=== PATIENT | female | born 1935 | race Hispanic/Latino ===

== ENCOUNTER 2016-12-21 07:55 | Day surgery (SDC) | payer MEDICARE ==
[2016-05-29 20:36] VITALS: BMI 36.6
[2016-12-21] MEDS ORDERED: Propofol 10 mg/ml Inj (20 ML) ONE (09:26)
[2016-12-21] MEDS ORDERED: Etomidate 20 mg/10ml Inj IV ONE (09:27)
[2016-12-21] MEDS ORDERED: Sodium Chloride 0.9% 1,000 ML IV SCH (10:00)
[2016-12-21 11:18] VITALS: RESP 18
[2016-12-21 11:55] VITALS: BP 138/75; PULSE 74; TEMP 98; O2SAT 99
== END 2016-12-21 12:41 | disposition home or self-care (01) ==
LOC: ENDO 07:55
PROVIDERS: ATTEND Internal Medicine Gastroenterology
DX: D12.2 Benign neoplasm of ascending colon (principal); D12.3 Benign neoplasm of transverse colon; K57.30 Diverticulosis of large intestine without perforation or abscess without bleeding; K60.2 Anal fissure, unspecified; K64.8 Other hemorrhoids; K64.4 Residual hemorrhoidal skin tags; Z80.0 Family history of malignant neoplasm of digestive organs
CPT/HCPCS: 45380; 45385; 88305; J2001; J2704; J7040 ×2

== ENCOUNTER 2017-01-26 17:01 | Emergency (ER) | payer MEDICARE ==
[2017-01-26 17:03] VITALS: BMI 36.6
[2017-01-26 17:21] VITALS: RESP 19
[2017-01-26] MEDS ORDERED: Pantoprazole 40mg/100ml IVPB 40 MG/100 ML BAG IVPB SCH (17:45)
--- NOTE | 2017-01-26 17:49 | ED PDOC ---
Arrival/HPI - General Chief Complaint: Female Genitourinary Time Seen by Provider: 01/26/17 17:05 Historian: Patient, Family (daughter) - History of Present Illness Narrative History of Present Illness (Text): 01/26/17 17:46 Betsy Pepe is a 81 year old female, whose past medical history includes hypertension, CHF, Hemorrhoids, CVA, Diabetes, and lower pedal edema presents to the emergency room with daughter c/o rectal bleeding in the morning, and 2 days history NICHOLE and SOB. Patient stated she has seen Dr. Braxton, and DR. Lamb for hemorrhoids, but she was told no intervention needed at that time. Patient has an appointment to see Dr. Piedra General surgeon for February 04. Denies CP, dizziness, hemoptysis, melena, n/v/d, or abnormal gait. Time/Duration: Other (See HPI) Context: Home Past Medical History - Provider Review Nursing Documentation Reviewed: Yes - Past History Past History: Non-Contributing - Infectious Disease Hx of Infectious Diseases: None - Tetanus Immunization Tetanus Immunization: Unknown - Reproductive Menopause: Yes - Past Medical History Past Medical History: No Previous - Cardiac Hx Pacemaker: No - Pulmonary Hx Respiratory Disorders: Yes Hx Bronchitis: Yes (dx 05-29-16 given medications) - Neurological Hx Paralysis: No - HEENT Hx HEENT Disorder: Yes (uses glasses) Hx Cataracts: Yes (sx) Hx Glaucoma: Yes - Renal Hx Renal Disorder: No - Endocrine/Metabolic Hx Diabetes Mellitus Type 1: Yes Hx Hypothyroidism: Yes - Hematological/Oncological Hx Blood Transfusions: No - Integumentary Hx Dermatological Disorder: No - Musculoskeletal/Rheumatological Hx Musculoskeletal Disorders: Yes - Gastrointestinal Hx Gastrointestinal Disorders: Yes (IRRITABLE BOWEL SYNDROME,H/O CHOLECYSTECTOMY ) - Genitourinary/Gynecological Hx Genitourinary Disorders: Yes (frequent urination) - Psychiatric Hx Emotional Abuse: No Hx Physical Abuse: No Hx Substance Use: No - Past Surgical History Past Surgical History: Unable to Obtain - Surgical History Hx Appendectomy: Yes Hx Cholecystectomy: Yes - Anesthesia Hx Anesthesia: Yes Hx Anesthesia Reactions: No Hx Malignant Hyperthermia: No - Suicidal Assessment Feels Threatened In Home Enviroment: No Family/Social History - Physician Review Nursing Documentation Reviewed: Yes Family/Social History: Other (Noncontributory) Smoking Status: Never Smoked Hx Alcohol Use: No Hx Substance Use: No Hx Substance Use Treatment: No Allergies/Home Meds Allergies/Adverse Reactions: Allergies hydromorphone HCl [From Dilaudid] Allergy (Severe, Verified 01/26/17 17:35) HALLUCINATIONS tramadol Allergy (Severe, Verified 11/30/16 10:38) RASH Home Medications: Home Meds Medication Instructions Recorded Confirmed Clopidogrel [Plavix] 75 mg PO DAILY 10/11/15 01/26/17 Folic Acid 1 mg PO DAILY 10/11/15 01/26/17 Furosemide [Lasix] 40 mg PO TID 10/11/15 01/26/17 Meclizine [Meclizine*] 25 mg PO BID PRN 10/11/15 01/26/17 metFORMIN [glucOPHAGE] 1,000 mg PO BID 10/11/15 01/26/17 Levothyroxine [Synthroid] 25 mcg PO DAILY 05/29/16 01/26/17 Cyanocobalamin [Vitamin B12 1000 1,000 mcg PO DAILY 11/30/16 01/26/17 mcg Tab] Glimepiride [amaRYL] 4 mg PO BID 11/30/16 01/26/17 Hydrocortisone [Procto-Med Hc] 30 gm RC BID 11/30/16 01/26/17 [id number] Ethyl Esters [OMEGA 3] 1 tab PO BID 11/30/16 01/26/17 Review of Systems - Review of Systems Constitutional: Normal. absent: Fatigue, Weight Change, Fevers Eyes: Normal ENT: Normal. absent: Sore Throat, Rhinorrhea Respiratory: SOB. absent: Cough, Sputum, Wheezing Cardiovascular: Edema (chronic b/l lower leg edema), NICHOLE. absent: Chest Pain, Palpitations, Calf Pain, Orthopnea, Syncope Gastrointestinal: Other (rectal bleeding). absent: Abdominal Pain, Nausea, Vomiting Genitourinary Female: Normal. absent: Dysuria, Frequency, Hematuria Musculoskeletal: Normal Skin: Normal. absent: Rash Neurological: Normal. absent: Headache, Dizziness, Focal Weakness Endocrine: Normal Hemo/Lymphatic: Normal Psychiatric: Normal Physical Exam Vital Signs Temp Pulse Resp BP Pulse Ox 01/26/17 19:25 99.1 F 01/26/17 19:09 86 19 152/70 H 99 01/26/17 17:06 99.1 F 88 19 137/60 98 Temperature: Afebrile Blood Pressure: Normal Pulse: Regular Respiratory Rate: Normal Appearance: Positive for: Well-Appearing, Non-Toxic, Comfortable Pain Distress: None Mental Status: Positive for: Alert and Oriented X 3 - Systems Exam Head: Present: Atraumatic, Normocephalic Pupils: Present: PERRL Extroacular Muscles: Present: EOMI Conjunctiva: Present: Normal Mouth: Present: Moist Mucous Membranes Neck: Present: Normal Range of Motion Respiratory/Chest: Present: Clear to Auscultation, Good Air Exchange. No: Respiratory Distress, Accessory Muscle Use, Wheezes, Retracting, Rhonchi Cardiovascular: Present: Regular Rate and Rhythm, Normal S1, S2. No: Murmurs Abdomen: Present: Normal Bowel Sounds. No: Tenderness, Distention, Peritoneal Signs Rectal: Present: Hemorrhoids (with superficial abrasion), Normal Rectal Tone, Other (GUAIC negative with positive control). No: Occult Blood, Rectal Tenderness, Gross Blood, Melena, Nodule/Mass/Lesions Back: Present: Normal Inspection. No: CVA Tenderness Upper Extremity: Present: Normal Inspection. No: Cyanosis, Edema Lower Extremity: Present: Normal Inspection, NORMAL PULSES, Normal ROM, Polo's Sign, Neurovascularly Intact, Capillary Refill < 2 s. No: Edema, CALF TENDERNESS Neurological: Present: GCS=15, CN II-XII Intact, Speech Normal Skin: Present: Warm, Dry, Normal Color. No: Rashes Psychiatric: Present: Alert, Oriented x 3, Normal Insight, Normal Concentration Medical Decision Making ED Course and Treatment: 01/26/17 20:05 Patient came c/o one episode of rectal bleeding, bright red blood. She also noted increased sob x 2 days. Patient remained stable during the course of ED visit. VS are WNL. Labs were unremarkable, except for UTI. Patient was treated with rocephine and fluids. 01/26/17 20:07 Dr. Spence reviewed labs, CXR, and he examined patient. Dr. Spence agreed with my plan to d/c home, and Rocephin IV. I paged Dr. March. 01/26/17 20:[address] March regarding patient history of rectal bleeding, and SOB. I reviewed labs with Dr. March. He stated he scheduled to see patient in 1-2 days. He agrees with plan for d/c home. Patient feels well in her normal state of health. She agrees with the plan for d/c home. Re-evaluation Time: 20:45 Reassessment Condition: Re-examined, Improved - Lab Interpretations Lab Results: 01/26/17 18:00 01/26/17 18:00 Lab Results 01/26/17 18:59: Urine Color yellow, Urine Appearance Slight-cloudy, Urine pH 6.0 , Ur Specific [place] 1.025, Urine Protein 30 H, Urine Glucose (UA) Negative, Urine Ketones Negative, Urine Blood Trace-intact H, Urine Nitrate Positive H, Urine Bilirubin Negative, Urine Urobilinogen 0.2, Ur Leukocyte Esterase Moderate H, Urine RBC 2 - 5, Urine WBC 10 - 15, Ur Epithelial Cells Many, Amorphous Sediment Moderate, Urine Bacteria Small 01/26/17 18:00: Sodium 141, Potassium 3.5 L, Chloride 100, Carbon Dioxide 25, Anion Gap 20, BUN 22 H, Creatinine 0.9, Est GFR ( Amer) > 60, Est GFR ( Non-Af Amer) > 60, Random Glucose 198 H, Calcium 9.0, Total Bilirubin 0.5, AST 36, ALT 24, Alkaline Phosphatase 67, Lactate Dehydrogenase 495, Total Creatine Kinase 36, Troponin I 0.02, NT-Pro-B Natriuret Pep 211, Total Protein 7.4, Albumin 4.2, Globulin 3.2, Albumin/Globulin Ratio 1.3 01/26/17 18:00: PT 11.5, INR 1.05, APTT 19.2 L 01/26/17 18:00: WBC 6.4, RBC 3.38 L, Hgb 10.4 L, Hct 31.1 L, MCV 92.0, MCH 30.8 , MCHC 33.4, RDW 15.1 H, Plt Count 134, MPV 11.9 H, Gran % 70.7 H, Lymph % (Auto ) 16.9 L, [place] % (Auto) 8.0 H, Eos % (Auto) 3.8, Baso % (Auto) 0.6, Gran # 4.53 , Lymph # 1.1 L, [place] # 0.5, Eos # 0.2, Baso # 0.04 I have reviewed the lab results: Yes Interpretation: Abnormal lab values (acute cystitis, mild anemia) - RAD Interpretation Narrative RAD Interpretations (Text): 01/26/17 19:07 CXR: enlarged heart. No infiltrates Radiology Orders: 01/26/17 17:44 CHEST PORTABLE [RAD] Stat - EKG Interpretation Interpreted by ED Physician: Yes (sinus rhythm with 1stdegree AV block with PAC) Type: 12 lead EKG Comparison: No previous EKG avail. - Medication Orders Current Medication Orders: Pantoprazole Sodium (Protonix 40mg Ivpb) 40 mg in 100 mls @ 20 mls/hr IVPB .Q5H NIDIA Last Admin: 01/26/17 18:55 Dose: 20 mls/hr eMAR Start Stop Document 01/26/17 18:55 LA (Rec: 01/26/17 19:02 [place] [facility] [id number] Intravenous Solution Start Date 01/26/17 Start Time 19:01 Discontinued Medications Ceftriaxone Sodium (Rocephin 1 Gram Ivpb) 1 gm in 100 mls @ 200 mls/hr IVPB STAT STA PRN Reason: Protocol Stop: 01/26/17 20:32 Sodium Chloride (Sodium Chloride 0.9%) 500 mls @ 999 mls/hr IV .Q31M STA Stop: 01/26/17 20:37 Disposition/Present on Arrival - Present on Arrival Any Indicators Present on Arrival: No History of DVT/PE: No History of Uncontrolled Diabetes: No Urinary Catheter: No History of Decub. Ulcer: No History Surgical Site Infection Following: None - Disposition Have Diagnosis and Disposition been Completed?: Yes Diagnosis: Acute cystitis, Anemia, mild Disposition: HOME/ ROUTINE Disposition Time: 20:47 Patient Plan: Discharge Patient Problems: Current Active Problems Problem Status Onset Acute cystitis Acute Anemia, mild Acute Condition: IMPROVED Discharge Instructions (ExitCare): Urinary Tract Infection in Women (ED) Additional Instructions: Call private doctor for follow up visit in 1-2 days. Continue with Sitz bath, and Procto-Med, supp. as recommended by your doctor. Take medication as instructed. Return to emergency if symptoms worsen. Prescriptions: Cephalexin [Keflex] 500 mg PO BID #14 capsule Referrals: Dante March DO [Primary Care Provider] - Follow up with primary Forms: Ghost (German)
[2017-01-26 18:23] LABS: BASO # 0.04 K/mm3 (0.0-2.0); BASO % 0.6 % (0.0-3.0); EOS # 0.2 (0.0-0.7); EOS % 3.8 % (1.5-5.0); GRAN # 4.53 (1.4-6.5); GRAN % 70.7 % (50.0-68.0); HEMATOCRIT 31.1 % (36.0-48.0); LYMPH # 1.1 (1.2-3.4); LYMPH % 16.9 % (22.0-35.0); MEAN CORPUSCULAR HEMOGLOBIN 30.8 pg (25.0-35.0); MEAN CORPUSCULAR HGB CONC 33.4 g/dl (31.0-37.0); MEAN PLATELET VOLUME 11.9 fl (7.0-11.0); MONO # 0.5 (0.1-0.6); RED CELL DISTRIBUTION WIDTH 15.1 % (11.5-14.5); WHITE BLOOD COUNT 6.4 10^3/ul (4.5-11.0)
[2017-01-26 18:24] LABS: ALB/GLOB RATIO 1.3 (1.1-1.8); ALKALINE PHOSPHATASE 67 U/L (38-126); ALT/SGPT 24 U/L (7-56); AST/SGOT 36 U/L (14-36); BILIRUBIN,TOTAL 0.5 mg/dL (0.2-1.3); BLOOD UREA NITROGEN 22 mg/dL (7-21); CARBON DIOXIDE 25 mmol/L (21-33); CHLORIDE 100 mmol/L (98-107); GFR AFRICAN-AMERICAN > 60; GLUCOSE,RANDOM 198 mg/dL (70-110); POTASSIUM 3.5 mmol/L (3.6-5.0); SODIUM 141 mmol/L (132-148); TOTAL PROTEIN 7.4 g/dL (5.8-8.3)
[2017-01-26 18:31] LABS: INR 1.05 (0.93-1.08); PARTIAL THROMBOPLASTIN TIME 19.2 Seconds (25.1-36.5)
[2017-01-26 18:35] LABS: TROPONIN I 0.02 ng/mL
[2017-01-26 19:14] LABS: URINE APPEARANCE SLIGHT-CLOUDY (CLEAR); URINE BILIRUBIN NEGATIVE (NEGATIVE); URINE BLOOD TRACE-INTACT (NEGATIVE); URINE GLUCOSE (UA) NEGATIVE (NEGATIVE); URINE KETONE NEGATIVE (NEGATIVE); URINE LEUKOCYTE ESTERASE MODERATE Leu/uL (NEGATIVE); URINE PROTEIN 30 mg/dL (<30 mg/dL); URINE UROBILINOGEN 0.2 E.U./dL (<1 E.U./dL)
[2017-01-26 19:15] LABS: URINE AMORPHOUS SEDIMENT MODERATE; URINE BACTERIA SMALL (NEG); URINE EPITHELIAL CELLS MANY /hpf (0-5)
[2017-01-26] MEDS ORDERED: cefTRIAXone 1 gm 1 GM/100 ML BAG IVPB STA (20:03)
[2017-01-26] MEDS ORDERED: Sodium Chloride 0.9% 500 ML IV STA (20:07)
[2017-01-26 21:18] VITALS: BP 136/66; PULSE 81; TEMP 98.2; O2SAT 98
--- NOTE | 2017-01-27 09:47 | RAD ---
HISTORY: NICHOLE COMPARISON: 11/30/2016 FINDINGS: LUNGS: No active pulmonary disease. PLEURA: No significant pleural effusion identified, no pneumothorax apparent. CARDIOVASCULAR: Mild cardiomegaly OSSEOUS STRUCTURES: No significant abnormalities. VISUALIZED UPPER ABDOMEN: Normal. OTHER FINDINGS: None. IMPRESSION: No active disease.
--- NOTE | 2017-01-27 21:02 | CARD ---
APPROVED REPORT EKG Measurement Heart [id number] <Conclusion> Sinus rhythm with 1st degree AV block with premature atrial complexes Nonspecific T wave abnormality Prolonged QT Abnormal ECG
== END 2017-01-26 21:29 | disposition home or self-care (01) ==
LOC: ED 17:01
DX: N30.00 Acute cystitis without hematuria (principal); D64.9 Anemia, unspecified
CPT/HCPCS: 71010; 80053; 81001; 82550; 83615; 83880; 84484; 85025; 85610; 85730; 87086; 93005; 96365; 96366; 96367; 99285; C9113; J0696; J7040

== ENCOUNTER 2017-02-14 17:07 | Inpatient (IN) | payer MEDICARE, OTHER ==
[2017-02-14 17:07] VITALS: BMI 36.6
--- NOTE | 2017-02-14 17:41 | ED PDOC ---
Arrival/HPI - General Chief Complaint: Altered Mental Status Time Seen by Provider: 02/14/17 17:27 Historian: Patient - History of Present Illness Narrative History of Present Illness (Text): 02/14/17 17:41 A 81 year old female, with a past medical history of CHF, hypertension, diabetes , and CVA with no residual effects, brought into the emergency room by daughter for confusion since 11:00 this morning. Patient reports she has been forgetting things today, not feeling like herself. Daughter notes patient is warm to touch with chills. She notes a sharp right sided headache since yesterday. Patient reports chronic left lower leg weakness, which has worsened over the past 3-4 days. She also notes chronic nasal congestion, cough and loose bowel movements, but denies any nausea, vomiting, abdominal pain, chest pain, shortness of breath , vision changes or any other complaints. PMD: Dr. March Time/Duration: Other (confusion x this morning) Symptom Course: Unchanged Context: Home Past Medical History - Provider Review Nursing Documentation Reviewed: Yes - Past History Past History: Non-Contributing - Infectious Disease Hx of Infectious Diseases: None - Tetanus Immunization Tetanus Immunization: Unknown - Reproductive Menopause: Yes - Past Medical History Past Medical History: No Previous - Cardiac Hx Pacemaker: No - Pulmonary Hx Respiratory Disorders: Yes Hx Bronchitis: Yes (dx 2 given medications) - Neurological Hx Paralysis: No - HEENT Hx HEENT Disorder: Yes (uses glasses) Hx Cataracts: Yes (sx) Hx Glaucoma: Yes - Renal Hx Renal Disorder: No - Endocrine/Metabolic Hx Diabetes Mellitus Type 1: Yes Hx Hypothyroidism: Yes - Hematological/Oncological Hx Blood Transfusions: No - Integumentary Hx Dermatological Disorder: No - Musculoskeletal/Rheumatological Hx Musculoskeletal Disorders: Yes - Gastrointestinal Hx Gastrointestinal Disorders: Yes (IRRITABLE BOWEL SYNDROME,H/O CHOLECYSTECTOMY ) - Genitourinary/Gynecological Hx Genitourinary Disorders: Yes (frequent urination) - Psychiatric Hx Emotional Abuse: No Hx Physical Abuse: No Hx Substance Use: No - Past Surgical History Past Surgical History: Unable to Obtain - Surgical History Hx Appendectomy: Yes Hx Cholecystectomy: Yes - Anesthesia Hx Anesthesia: Yes Hx Anesthesia Reactions: No Hx Malignant Hyperthermia: No - Suicidal Assessment Feels Threatened In Home Enviroment: No Family/Social History - Physician Review Nursing Documentation Reviewed: Yes Family/Social History: No Known Family HX Smoking Status: Never Smoked Hx Alcohol Use: No Hx Substance Use: No Hx Substance Use Treatment: No Allergies/Home Meds Allergies/Adverse Reactions: Allergies hydromorphone HCl [From Dilaudid] Allergy (Severe, Verified 02/14/17 17:16) HALLUCINATIONS tramadol Allergy (Severe, Verified 02/14/17 17:16) RASH Home Medications: Home Meds Medication Instructions Recorded Confirmed Clopidogrel [Plavix] 75 mg PO DAILY 10/11/15 02/14/17 Folic Acid 1 mg PO DAILY 10/11/15 02/14/17 Furosemide [Lasix] 40 mg PO TID 10/11/15 02/14/17 Meclizine [Meclizine*] 25 mg PO BID PRN 10/11/15 02/14/17 metFORMIN [glucOPHAGE] 1,000 mg PO BID 10/11/15 02/14/17 Levothyroxine [Synthroid] 25 mcg PO DAILY 05/29/16 02/14/17 Cyanocobalamin [Vitamin B12 1000 1,000 mcg PO DAILY 11/30/16 02/14/17 mcg Tab] Glimepiride [amaRYL] 4 mg PO BID 11/30/16 02/14/17 Hydrocortisone [Procto-Med Hc] 30 gm RC BID 11/30/16 02/14/17 [id number] Ethyl Esters [OMEGA 3] 1 tab PO BID 11/30/16 02/14/17 Amoxicillin [Amoxil 500 mg Cap] 500 mg PO TID 02/14/17 02/14/17 Review of Systems - Physician Review All systems were reviewed & negative as marked: Yes - Review of Systems Constitutional: Night Sweats Eyes: absent: Vision Changes ENT: Sinus Congestion Respiratory: Cough. absent: SOB Cardiovascular: absent: Chest Pain Gastrointestinal: Stool Changes (loose stool). absent: Abdominal Pain, Nausea, Vomiting Neurological: Headache, Other (LLE weakness) Psychiatric: Other (confusion) Physical Exam Vital Signs Reviewed: Yes Vital Signs Temp Pulse Resp BP Pulse Ox 02/14/17 19:45 89 16 143/66 97 02/14/17 19:25 90 20 129/63 96 02/14/17 18:13 101.8 F H 96 H 18 140/61 97 02/14/17 18:10 101.8 F H 02/14/17 17:19 100.3 F H 86 19 142/49 L 97 02/14/17 17:18 100.3 F H 86 17 142/49 L 97 Temperature: Febrile Blood Pressure: Hypotensive Pulse: Regular Respiratory Rate: Normal Appearance: Positive for: Well-Appearing, Non-Toxic, Comfortable Pain Distress: None Mental Status: Positive for: Alert and Oriented X 3 - Systems Exam Head: Present: Atraumatic, Normocephalic Pupils: Present: PERRL Extroacular Muscles: Present: EOMI Conjunctiva: Present: Normal Mouth: Present: Moist Mucous Membranes Neck: Present: Normal Range of Motion Respiratory/Chest: Present: Clear to Auscultation, Good Air Exchange. No: Respiratory Distress, Accessory Muscle Use Cardiovascular: Present: Regular Rate and Rhythm, Normal S1, S2. No: Murmurs Abdomen: Present: Normal Bowel Sounds. No: Tenderness, Distention, Peritoneal Signs Back: Present: Normal Inspection Upper Extremity: Present: Normal Inspection. No: Cyanosis, Edema Lower Extremity: Present: Edema (bilateral trace edema), NORMAL PULSES, Other ( Left lower leg weakness, 4/5 in strength). No: CALF TENDERNESS Neurological: Present: GCS=15, CN II-XII Intact, Speech Normal, Other Skin: Present: Warm (warm to touch), Dry, Normal Color. No: Rashes Psychiatric: Present: Alert, Oriented x 3, Normal Insight, Normal Concentration , Other (confused) Medical Decision Making ED Course and Treatment: 02/14/17 17:41 Impression: A 81 year old female brought in for confusion Differential Diagnosis included but are not limited to: Sepsis vs. CVA Plan: -- CT Head -- Chest X-ray -- EKG -- Labs -- Blood and Urine culture -- Urinalysis -- Tylenol, Magnesium sulfate, Potassium chloride, IV fluids and Zosyn -- Reassess and disposition Progress Notes: EKG shows NSR at 89 BPM with 1st degree AV block, sinus arrhythmia. Interpreted by me. 02/14/17 18:00 Chest xray read and interpreted by me, shows no active disease. 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 MRI may be helpful if acute infarct is suspected 02/14/17 19:12 Case was discussed with Dr. March who agreed to place the patient on telemetry for sepsis. 02/14/17 20:12 CT results ischemic changes as noted above. Patient passed her swallow study as per JUMA Salguero. Aspirin PO ordered. Dr. March informed about new finding on CT. He is requested Dr. Nguyen. 02/14/17 22:[address] Nguyen who recommends Vancomycin IV also to cover possible endocarditis. He will evaluate the patient in the morning. - Lab Interpretations Lab Results: 02/14/17 18:00 02/14/17 18:00 Lab Results 02/14/17 18:20: Influenza Typ A,B (EIA) Negative for flu a/b 02/14/17 18:00: Blood Type O POSITIVE, Antibody Screen Negative, BBK History Checked No verified bt 02/14/17 18:00: Hemoglobin A1c 7.8 H 02/14/17 18:00: Sodium 137, Chloride 96 L, Potassium 3.0 L, Carbon Dioxide 30, Anion Gap 14, BUN 16, Creatinine 0.8, Est GFR ( Amer) > 60, Est GFR (Non- Af Amer) > 60, Random Glucose 166 H, Calcium 9.0, Phosphorus 2.3 L, Magnesium 1.0 L*, Total Bilirubin 0.6, AST 30, ALT 21, Alkaline Phosphatase 64, Troponin I 0.02, NT-Pro-B Natriuret Pep 774 H, Total Protein 7.1, Albumin 4.0, Globulin 3.1, Albumin/Globulin Ratio 1.3, Triglycerides 429 H, Cholesterol 155, LDL Cholesterol Direct 48, HDL Cholesterol 33 02/14/17 18:00: pO2 36, VBG pH 7.46 H, VBG pCO2 44.0, VBG HCO3 31.3 H, VBG Total CO2 32.7 H, VBG O2 Sat (Calc) 74.6 H, VBG Base Excess 6.6 H, VBG Potassium 3.0 L, Sodium 139.0, Chloride 99.0, Glucose 166 H, Lactate 3.7 H, FiO2 21.0, Venous Blood Potassium 3.0 L 02/14/17 18:00: PT 12.7 H, INR 1.16 H, APTT 30.9 02/14/17 18:00: Procalcitonin 0.05 L 02/14/17 18:00: WBC 9.3 D, RBC 3.55, Hgb 10.9 L, Hct 32.4 L, MCV 91.3, MCH 30.7 , MCHC 33.6, RDW 14.9 H, Plt Count 210, MPV 10.1, Gran % 76.4 H, Lymph % (Auto) 16.3 L, [place] % (Auto) 5.8, Eos % (Auto) 1.2 L, Baso % (Auto) 0.3, Gran # 7.08 H , Lymph # 1.5, [place] # 0.5, Eos # 0.1, Baso # 0.03, ESR 79 H I have reviewed the lab results: Yes - RAD Interpretation Radiology Orders: 02/14/17 17:40 CHEST PORTABLE [RAD] Stat 02/14/17 17:42 HEAD W/O CONTRAST [CT] Stat - Medication Orders Current Medication Orders: Clopidogrel Bisulfate (Plavix) 75 mg PO DAILY NIDIA Furosemide (Lasix) 40 mg IVP DAILY NIDIA Gabapentin (Neurontin) 300 mg PO TID NIDIA PRN Reason: Protocol Glimepiride (Amaryl) 4 mg PO BID NIDIA Sodium Chloride (Sodium Chloride 0.45%) 1,000 mls @ 40 mls/hr IV .Q24H NIDIA Vancomycin HCl (Vancomycin 1gm) 1 gm in 250 mls @ 167 mls/hr IVPB STAT STA PRN Reason: Protocol Stop: 02/14/17 23:36 Insulin Human Regular (Humulin R Med) 0 units SC ACHS NIDIA PRN Reason: Protocol Levothyroxine Sodium (Synthroid) 25 mcg PO DAILY NIDIA Metformin HCl (Glucophage) 1,000 mg PO BID NIDIA Discontinued Medications Acetaminophen (Tylenol 325mg Tab) 650 mg PO STAT STA Stop: 02/14/17 17:41 Last Admin: 02/14/17 18:10 Dose: 650 mg MAR Pain/Vitals Document 02/14/17 18:10 OCS (Rec: 02/14/17 18:18 O[place] [facility] [place] Pain Reassessment Is This A Pain ReAssessment? Yes Sleep Is patient sleeping during reassessment? No Presence of Pain Presence of Pain Yes Pain Scale Used Pain Scale Used Numeric Location Pain Location Body Site Generalized Vitals Temperature (97.6 F-99.6 F) 101.8 F Temperature Source Rectal Aspirin (Aspirin Chewable) 324 mg PO STAT STA Stop: 02/14/17 20:12 Last Admin: 02/14/17 20:27 Dose: Not Given Non-Admin Reason: Patient Refused Piperacillin Sod/Tazobactam Sod (Zosyn 4.5 Gm In Ns 100ml) 4.5 gm in 100 mls @ 200 mls/hr IVPB STAT STA PRN Reason: Protocol Stop: 02/14/17 19:01 Last Admin: 02/14/17 18:53 Dose: 200 mls/hr eMAR Start Stop Document 02/14/17 18:53 OCS (Rec: 02/14/17 18:53 [facility] [email or web address] Intravenous Solution Start Date 02/14/17 Start Time 18:53 Magnesium Sulfate 2 gm/ Sodium (Chloride) 104 mls @ 102 mls/hr IVPB ONCE ONE Stop: 02/14/17 19:38 Last Admin: 02/14/17 19:47 Dose: 102 mls/hr eMAR Start Stop Document 02/14/17 19:47 JOL (Rec: 02/14/17 19:47 [facility]OL [facility] [email or web address] Intravenous Solution Start Date 02/14/17 Start Time 19:47 End Date 02/14/17 End time 20:49 Total Infusion Time 62 Potassium Chloride 10 meq/ (Sodium Chloride) 505 mls @ 999 mls/hr IV .Q31M STA Stop: 02/14/17 19:09 Last Admin: 02/14/17 20:50 Dose: 999 mls/hr eMAR Start Stop Document 02/14/17 20:50 JOL (Rec: 02/14/17 22:09 [facility] [email or web address] Intravenous Solution Start Date 02/14/17 Start Time 20:55 Potassium Chloride (K-Dur 20 Meq Er Tab) 40 meq PO STAT STA Stop: 02/14/17 18:38 Last Admin: 02/14/17 18:59 Dose: 40 meq NIHSS Scale ([place]) Time Performed: 17:41 - How Severe is the [place] Baseline Level of Consciousness: 0=Alert LOC to Questions: 0=Both comments correct LOC to commands: 0=Obeys both correctly Best Gaze: 0=Normal Visual: 1=Partial hemianopia Facial: 0=Normal Motor Arm - Left: 0=No drift Motor Arm - Right: 0=No drift Motor Leg - Left: 0=No drift Motor Leg - Right: 0=No drift Limb Ataxia: 0=Absent Sensory: 0=Normal Best Language: 0=No aphasia Dysarthia: 0=Normal articulation Extinction & Inattention (Neglect): 0=Normal, no object Score: 1 Risk Level: Minor Stroke Risk rTPA Inclusion/Exclusion - Refusal of Treatment Patient Refused Treatment: No - Inclusion Criteria for Altepase Patient is 18 years or Older: Yes The Clinical Diagnosis of Ischemic Stroke That is Causing a Potentially Disabling Neurological Deficit: No Time of Onset is Well Established to be Less Than 270 Minute Before Treatment Would Begin: No Risk/Benefit Discussed With Patient/Family Member Present: No - Scribe Statement The provider has reviewed the documentation as recorded by the Scribe Sophie Dickinson training under Kathie Wren Provider Scribe Attestation: All medical record entries made by the Scribe were at my direction and personally dictated by me. I have reviewed the chart and agree that the record accurately reflects my personal performance of the history, physical exam, medical decision making, and the department course for this patient. I have also personally directed, reviewed, and agree with the discharge instructions and disposition. Disposition/Present on Arrival - Present on Arrival Any Indicators Present on Arrival: No History of DVT/PE: No History of Uncontrolled Diabetes: No Urinary Catheter: No History of Decub. Ulcer: No History Surgical Site Infection Following: None - Disposition Have Diagnosis and Disposition been Completed?: Yes Diagnosis: Altered mental status, Sepsis, CVA (cerebral vascular accident) Disposition: HOSPITALIZED Disposition Time: 22:21 Patient Plan: Admission Condition: GUARDED
[2017-02-14 18:15] LABS: VENOUS BLOOD GAS BASE EXCESS 6.6 mmol/L (0.0-2.0); VENOUS BLOOD PH 7.46 (7.32-7.43)
[2017-02-14 18:23] LABS: BASO # 0.03 K/mm3 (0.0-2.0); BASO % 0.3 % (0.0-3.0); EOS # 0.1 (0.0-0.7); EOS % 1.2 % (1.5-5.0); GRAN # 7.08 (1.4-6.5); GRAN % 76.4 % (50.0-68.0); HEMATOCRIT 32.4 % (36.0-48.0); LYMPH # 1.5 (1.2-3.4); LYMPH % 16.3 % (22.0-35.0); MEAN CELL VOLUME 91.3 fl (80.0-105.0); MEAN CORPUSCULAR HEMOGLOBIN 30.7 pg (25.0-35.0); MEAN CORPUSCULAR HGB CONC 33.6 g/dl (31.0-37.0); MEAN PLATELET VOLUME 10.1 fl (7.0-11.0); MONO # 0.5 (0.1-0.6); MONO % 5.8 % (1.0-6.0); RED CELL DISTRIBUTION WIDTH 14.9 % (11.5-14.5); WHITE BLOOD COUNT 9.3 10^3/ul (4.5-11.0)
[2017-02-14 18:26] LABS: ALB/GLOB RATIO 1.3 (1.1-1.8); ALKALINE PHOSPHATASE 64 U/L (38-126); ALT/SGPT 21 U/L (7-56); AST/SGOT 30 U/L (14-36); BILIRUBIN,TOTAL 0.6 mg/dL (0.2-1.3); BLOOD UREA NITROGEN 16 mg/dL (7-21); CARBON DIOXIDE 30 mmol/L (21-33); CHLORIDE 96 mmol/L (98-107); CHOLESTEROL 155 mg/dL (130-200); GFR AFRICAN-AMERICAN > 60; GLUCOSE,RANDOM 166 mg/dL (70-110); PHOSPHOROUS 2.3 mg/dL (2.5-4.5); SODIUM 137 mmol/L (132-148); TOTAL PROTEIN 7.1 g/dL (5.8-8.3)
[2017-02-14] MEDS ORDERED: Piperacill/Tazo 4.5gm in NS 4.5 GM/100 ML BAG IVPB STA (18:32)
[2017-02-14 18:34] LABS: INR 1.16 (0.93-1.08); PARTIAL THROMBOPLASTIN TIME 30.9 Seconds (25.1-36.5)
[2017-02-14 18:37] LABS: TROPONIN I 0.02 ng/mL
[2017-02-14] MEDS ORDERED: Magnesium Sulfate 2 GM in Sodium Chloride 0.9% 100 ML IVPB ONE (18:37)
[2017-02-14] MEDS ORDERED: Potassium Chloride 20 mEq ER Tab PO STA (18:37)
--- NOTE | 2017-02-14 19:53 | CT ---
EXAM: CT Head Without Intravenous Contrast EXAM DATE/TIME: 02/14/2017 5:42 PM CLINICAL HISTORY: 81 years old, female; Signs and symptoms; Other: Confusion TECHNIQUE: Axial computed tomography images of the head/brain without intravenous contrast. All CT scans at this facility use one or more dose reduction techniques, viz.: automated exposure control; ma/kV adjustment per patient size (including targeted exams where dose is matched to indication; i.e. head); or iterative reconstruction technique. COMPARISON: CT - HEAD W/O CONTRAST 2016-05-29 22:51 FINDINGS: Brain: There is dilatation of sulci gyri and ventricles. There is no midline shift. There is decreased attenuation in periventricular white matter. There is geographic region of decreased attenuation in the posterior right temporal and right occipital lobes. There is an old left frontal infarct. There is an old left occipital infarct with encephalomalacia. There are old basal ganglia lacunar infarcts. There are no focal masses. There are no focal hemorrhages. Urias-white differentiation is visualized. Ventricles: See above Bones/joints: Bones: Cranial vault is intact. Soft tissues: unremarkable Sinuses: There is no acute sinusitis. There are retention cysts/polyp in the right maxillary sinus, left frontal sinus and ethmoid air cell.. There is a small retention cyst in an ethmoid air cell. There is mild mucoperiosteal Mastoid air cells: Ears and mastoids: Middle ears and mastoids are unremarkable. Orbits: Orbital contents are unremarkable. IMPRESSION: Age indeterminate ischemic change posterior right temporal and right occipital lobes; old left frontal, left occipital and basal ganglia infarcts , no bleed MRI may be helpful if acute infarct is suspected
[2017-02-14 20:18] LABS: URINE BILIRUBIN NEGATIVE (NEGATIVE); URINE BLOOD NEGATIVE (NEGATIVE); URINE GLUCOSE (UA) NEGATIVE (NEGATIVE); URINE KETONE NEGATIVE (NEGATIVE); URINE LEUKOCYTE ESTERASE SMALL Leu/uL (NEGATIVE); URINE PROTEIN 30 mg/dL (<30 mg/dL); URINE UROBILINOGEN 0.2 E.U./dL (<1 E.U./dL)
[2017-02-14 20:20] LABS: URINE APPEARANCE SLIGHT-CLOUDY (CLEAR); URINE COLOR YELLOW (YELLOW)
[2017-02-14 20:35] LABS: URINE BACTERIA MOD (NEG)
[2017-02-14] MEDS ORDERED: Vancomycin 1gm in NS 250ml 1 GM/250 ML BAG IVPB STA (22:07)
[2017-02-14 22:36] LABS: VENOUS BLOOD GAS BASE EXCESS 5.8 mmol/L (0.0-2.0); VENOUS BLOOD PH 7.48 (7.32-7.43)
--- NOTE | 2017-02-14 22:57 | PCM.SEPTIC ---
Sepsis Progress Note - Reassessment Type Date of Evaluation: 02/14/17 Time of Evaluation: 22:57 Reassessment Type: Non-invasive reassessment - Non Invasive Reassessment Were the most recent vital sign reviewed: Yes Vital Sign (Latest): Temp Pulse Resp BP Pulse Ox 101.8 F H 89 16 143/66 97 02/14/17 18:13 02/14/17 19:45 02/14/17 19:45 02/14/17 19:45 02/14/17 19:45 Cardiovascular: Yes: Regular Rate, Rhythm Respiratory: Yes: Normal Breath Sounds Capillary Refill: Normal (Less than 2 sec) Skin: Normal Color
[2017-02-14] MEDS: Insulin Reg-MEDIUM-Coverage SC SCH (23:30)
[2017-02-15] MEDS: Meropenem 1 GM in Dextrose 5% In Water 100 ML IVPB SCH ×4 (03:24→21:45)
[2017-02-15] MEDS: Sodium Chloride 0.45% 1,000 ML IV SCH ×2 (03:25→23:02)
--- NOTE | 2017-02-15 05:51 | HP ---
HISTORY OF PRESENT ILLNESS: I know Betsy very well from house calls, over the past few years, she comes in accompanied by her daughter. An 81-year-old female with a little bit of confusion, since 11:00 a.m. forgetting things, not feeling herself. She is also very warm to touch and chills, also headache, leg weakness worsened over the past 3 to 4 days, chronic nasal congestion, cough, loose bowel movements. No nausea or vomiting. No chest pain or shortness of breath. 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 She wears glasses. She had cataract surgery, glaucoma, hypothyroidism, type 1 diabetes, IVS, and history of cholecystectomy, increasing urination, appendectomy and cholecystectomy. FAMILY HISTORY: Hypertension and diabetes in the family. SOCIAL HISTORY: She never smoked. No alcohol. No drugs. ALLERGIES: SHE IS ALLERGIC TO DILAUDID AND TRAMADOL. MEDICATIONS: She takes Plavix, folic acid, Lasix, Meclizine, Glucophage, Synthroid, vitamin B12, Amaryl, Proctosol cream, omega-3 fatty acid. She has been on amoxicillin recently. REVIEW OF SYSTEMS: She is very hard to touch, she is very warm, sweaty. She has chills. No changes in vision or hearing, sinus congestion, a little sore throat. There is a cough. No shortness of breath. No chest pain. Loose stools recently. No abdominal pain. No nausea or vomiting or constipation. There is a headache. Some weakness in the legs. She is confused a little bit, but she knew me right off the bat. PHYSICAL EXAMINATION: GENERAL: She is resting in bed with family present. She is a little toxic to me not herself, well-appearing, but a little bit confused She is alert and oriented x2. VITAL SIGNS: Temperature 101.8, 96 pulse, 20 respiratory rate, 140/61 blood pressure and 97% O2 saturation on room air. HEENT: Head is atraumatic and normocephalic. Tongue is midline. Extraocular muscles intact. Pupils equal and reactive to light and accommodation. Very hard to touch. NECK: Supple. HEART: Regular rate. Normal S1 and S2. LUNGS: Decreased breath sounds. Clear to auscultation, fair exchange of oxygen. ABDOMEN: Soft, obese and nontender. Positive bowel sounds. No guarding. No rebound. No CVA tenderness. EXTREMITIES: +1/4 pitting edema bilateral extremities. They found some left lower lobe weakness. NEUROLOGIC: GCS is 15. Cranial nerves II through XII grossly intact. Speech is normal. She is alert and oriented x2, but confused. SKIN: Warm, hot, not sweaty. LABORATORY DATA: She had multiple tests done, negative influenza. Sodium 137, potassium 3, replaced potassium, BUN 16, creatinine 0.8. GFR is greater than 60. Sugar is 166, she will be on a medicine plus insulin coverage, phosphorus 2.3, magnesium 1, magnesium replaced, total bili is 0.6, AST is 30, ALT is 21,alk phos 64, troponin I 0.02. BNP is 774, total protein 7.1, albumin is 4, globulin is 3.1, cholesterol is 155, HDL of 33. She has a lactate of 3.7, INR is 1.16 with 11.3 white count, 10.9 hemoglobin, 32.4 hematocrit with [address] She had a CT scan of the head, which showed age-indeterminate ischemic change, posterior right temporal and right occipital lobes, old left frontal lobe. We recommended an MRI. Her urine was moderate bacteria. She could have UTI, sepsis with a temperature of 101.8 and with the change in mentation and confusion may be she is developing a stroke versus ischemia. I am going to call Neurology, Infectious Disease, IV antibiotics, IV fluids. She is on Zosyn. We will check her labs tomorrow, oxygen. Dante March DO [facility]
[2017-02-15 06:16] LABS: HEMATOCRIT 30.9 % (36.0-48.0); MEAN CELL VOLUME 91.4 fl (80.0-105.0); MEAN CORPUSCULAR HEMOGLOBIN 30.2 pg (25.0-35.0); MEAN PLATELET VOLUME 9.7 fl (7.0-11.0)
[2017-02-15 06:39] LABS: ALB/GLOB RATIO 1.2 (1.1-1.8); ALKALINE PHOSPHATASE 56 U/L (38-126); ALT/SGPT 32 U/L (7-56); AST/SGOT 21 U/L (14-36); BILIRUBIN,TOTAL 0.6 mg/dL (0.2-1.3); BLOOD UREA NITROGEN 13 mg/dL (7-21); CALCIUM 8.6 mg/dL (8.4-10.5); CARBON DIOXIDE 28 mmol/L (21-33); CHLORIDE 99 mmol/L (95-110); GFR AFRICAN-AMERICAN > 60; GLUCOSE,RANDOM 220 mg/dL (70-110); MAGNESIUM 1.5 mg/dL (1.7-2.2); POTASSIUM 3.2 mmol/L (3.6-5.0); SODIUM 137 mmol/L (132-148); TOTAL PROTEIN 6.5 g/dL (5.8-8.3)
[2017-02-15] MEDS: Insulin Reg-MEDIUM-Coverage SC SCH ×4 (08:03→23:03)
[2017-02-15 08:04] LABS: VENOUS BLOOD GAS BASE EXCESS 4.8 mmol/L (0.0-2.0); VENOUS BLOOD PH 7.43 (7.32-7.43)
[2017-02-15] MEDS ORDERED: Magnesium Sulfate 1 gm in D5W 1 GM/100 ML BAG IVPB ONE (08:32)
--- NOTE | 2017-02-15 09:17 | RAD ---
HISTORY: Sepsis Patient COMPARISON: 01/26/2017 FINDINGS: LUNGS: No active pulmonary disease. PLEURA: No significant pleural effusion identified, no pneumothorax apparent. CARDIOVASCULAR: Mild cardiomegaly OSSEOUS STRUCTURES: No significant abnormalities. VISUALIZED UPPER ABDOMEN: Normal. OTHER FINDINGS: None. IMPRESSION: No active disease.
[2017-02-15 09:44] LABS: VENOUS BLOOD GAS BASE EXCESS 2.8 mmol/L (0.0-2.0); VENOUS BLOOD PH 7.44 (7.32-7.43)
--- NOTE | 2017-02-15 10:05 | CP.PCM.HP ---
History of Present Illness - History of Present Illness History of Present Illness: Neurology consult note for Dr. Nguyen's service - Krystal Rao PGY2 HPI: Patient is a 81 year-old female with past medical history of CHF, hypertension, DM type 2, hypothyroidism, glaucoma, spinal stenosis at L3-L4, obesity, neuropathy, GERD, osteoarthritis and acute infarct in the left anterior frontal lobe with no residual effects who presented to [facility] c/o confusion associated with fevers and chills. She reported that she first started having symptoms earlier that day and became worried she may be having a stroke. Her daughter at the time noted that she seemed confused, forgetful and had chills. She also reported loose bowel movements which she admits had been a chronic issue. She denied chest pain, palpitations, SOB, abdominal pain, nausea, vomiting, cough, focal weakness, numbness, tingling. Neurology consulted for evaluation of confusion. 12point ROS as per HPI above otherwise negative PMH: as stated above PSH: cholecystectomy Allergies: hydromorphone, tramadol Family Hx: Non-contributory Social Hx: Denies tobacco, alcohol and illicit drug use PMD: Dr. March Present on Admission - Present on Admission Any Indicators Present on Admission: No Past Patient History - Infectious Disease Hx of Infectious Diseases: None - Tetanus Immunizations Tetanus Immunization: Unknown - Past Social History Smoking Status: Never Smoked - CARDIAC Hx Cardiac Disorders: Yes Hx Congestive Heart Failure: Yes Hx Hypercholesterolemia: Yes Hx Hypertension: Yes - PULMONARY Hx Respiratory Disorders: Yes Hx Bronchitis: Yes - NEUROLOGICAL Hx Neurological Disorder: Yes HX Cerebrovascular Accident: Yes (no deficits) Hx Transient Ischemic Attacks (TIA): Yes - HEENT Hx HEENT Problems: Yes (uses glasses) Hx Cataracts: Yes (sx) Hx Glaucoma: Yes - RENAL Hx Chronic Kidney Disease: No - ENDOCRINE/METABOLIC Hx Endocrine Disorders: Yes Hx Diabetes Mellitus Type 2: Yes Hx Hypothyroidism: Yes - HEMATOLOGICAL/ONCOLOGICAL Hx Blood Transfusions: No - INTEGUMENTARY Hx Dermatological Problems: No - MUSCULOSKELETAL/RHEUMATOLOGICAL Hx Falls: No - GASTROINTESTINAL Hx Gastrointestinal Disorders: Yes (IBS) - GENITOURINARY/GYNECOLOGICAL Hx Genitourinary Disorders: Yes (frequent urination) - PSYCHIATRIC Hx Emotional Abuse: No Hx Physical Abuse: No Hx Substance Use: No - SURGICAL HISTORY Hx Surgeries: Yes Hx Appendectomy: Yes Hx Cholecystectomy: Yes - ANESTHESIA Hx Anesthesia: Yes Hx Anesthesia Reactions: No Hx Malignant Hyperthermia: No Meds Allergies/Adverse Reactions: Allergies Allergy/AdvReac Type Severity Reaction Status Date / Time hydromorphone HCl Allergy Severe HALLUCINATI Verified 02/14/17 17:16 [From Dilaudid] ONS tramadol Allergy Severe RASH Verified 02/14/17 17:16 Physical Exam - Constitutional Appears: Non-toxic, No Acute Distress - Head Exam Head Exam: ATRAUMATIC, NORMAL INSPECTION, NORMOCEPHALIC - Eye Exam Eye Exam: EOMI, PERRL - ENT Exam ENT Exam: Mucous Membranes Moist - Neck Exam Neck exam: Positive for: Normal Inspection - Respiratory Exam Respiratory Exam: Clear to Auscultation Bilateral. absent: Rales, Rhonchi, Wheezes - Cardiovascular Exam Cardiovascular Exam: RRR, +S1, +S2, Systolic Murmur. absent: Gallop, JVD, Rubs - GI/Abdominal Exam GI & Abdominal Exam: Distended, Soft. absent: Firm, Guarding, Rebound, Tenderness - Extremities Exam Extremities exam: Positive for: normal inspection - Neurological Exam Neurological exam: Alert, CN II-XII Intact, Oriented x3 Additional comments: awake, alert, oriented x3 EOMI PERRL motor function grossly intact bilaterally sensory intact throughout no drift proprioception in tact babinski downward going bilaterally gait deferred - Psychiatric Exam Psychiatric exam: Normal Affect, Normal Mood - Skin Skin Exam: Dry, Intact, Normal Color, Warm Results - Vital Signs Recent Vital Signs: Last Vital Signs Temp 99.1 F 02/15/17 07:07 Pulse 83 02/15/17 06:00 Resp 20 02/15/17 06:00 BP 136/68 02/15/17 06:00 Pulse Ox 96 02/15/17 00:01 - Labs Result Diagrams: 02/15/17 06:00 02/15/17 06:00 Labs: Laboratory Results - last 24 hr 02/14/17 02/14/17 02/15/17 19:30 22:24 06:00 WBC 8.0 RBC 3.38 L Hgb 10.2 L Hct 30.9 L MCV 91.4 MCH 30.2 MCHC 33.0 RDW 15.0 H Plt Count 159 MPV 9.7 pO2 203 H VBG pH 7.48 H VBG pCO2 40.0 VBG HCO3 29.8 H VBG Total CO2 31.0 H VBG O2 Sat (Calc) 98.9 H VBG Base Excess 5.8 H VBG Potassium 2.9 L Sodium 138.0 Chloride 103.0 Glucose 144 H Lactate 2.6 H FiO2 21.0 Potassium Carbon Dioxide Anion Gap BUN Creatinine Est GFR ( Amer) Est GFR (Non-Af Amer) Random Glucose Calcium Magnesium Total Bilirubin AST ALT Alkaline Phosphatase Total Protein Albumin Globulin Albumin/Globulin Ratio Venous Blood Potassium 2.9 L Urine Color Yellow Urine Appearance Slight-cloudy Urine pH 6.0 Ur Specific [place] 1.015 Urine Protein 30 H Urine Glucose (UA) Negative Urine Ketones Negative Urine Blood Negative Urine Nitrate Positive H Urine Bilirubin Negative Urine Urobilinogen 0.2 Ur Leukocyte Esterase Small H Urine RBC 1 - 3 Urine WBC 10 - 15 Ur Epithelial Cells 10 - 12 Urine Bacteria Mod 02/15/17 02/15/17 02/15/17 06:00 06:00 09:40 WBC RBC Hgb Hct MCV MCH MCHC RDW Plt Count MPV pO2 32 44 VBG pH 7.43 7.44 H VBG pCO2 45.0 40.0 VBG HCO3 29.9 H 27.2 VBG Total CO2 31.3 H 28.4 H VBG O2 Sat (Calc) 69.8 H 82.7 H VBG Base Excess 4.8 H 2.8 H VBG Potassium 3.0 L 2.8 L Sodium 137 138.0 136.0 Chloride 99 102.0 99.0 Glucose 228 H 250 H Lactate 2.6 H 4.3 H* FiO2 21.0 21.0 Potassium 3.2 L Carbon Dioxide 28 Anion Gap 13 BUN 13 Creatinine 0.8 Est GFR ( Amer) > 60 Est GFR (Non-Af Amer) > 60 Random Glucose 220 H Calcium 8.6 Magnesium 1.5 L Total Bilirubin 0.6 AST 21 ALT 32 Alkaline Phosphatase 56 Total Protein 6.5 Albumin 3.5 Globulin 3.0 Albumin/Globulin Ratio 1.2 Venous Blood Potassium 3.0 L 2.8 L Urine Color Urine Appearance Urine pH Ur Specific [place] Urine Protein Urine Glucose (UA) Urine Ketones Urine Blood Urine Nitrate Urine Bilirubin Urine Urobilinogen Ur Leukocyte Esterase Urine RBC Urine WBC Ur Epithelial Cells Urine Bacteria Assessment & Plan - Assessment and Plan (Free Text) Plan: 81yo female with history of DM, HTN, GERD, Osteoarthritis, 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 Neurology consulted for evaluation of confusion and rule out potential CVA/TIA. 1. Sepsis secondary to UTI 2. Confusion 3. DM type2 4. HTN 5. GERD 6. Osteoarthritis -Confusion likely secondary to sepsis due to urinary tract infection. Urinalysis was notable for nitrates, leukocyte esterase, WBC's and bacteria. Lactate on admission was notable at 3.7 and patient had a Tmax of 101.8F. -At this time, recommend follow up urine culture and infectious disease recommendations. Continue IV antibiotics and IVF hydration. -Monitor and replete electrolytes as indicated -Physical therapy evaluation -Further recommendations to follow; will discuss with Dr. Nguyen whether further imaging notable MRI is warranted. -Head CT reviewed; revealed old left frontal, left occipital and basal ganglia infarcts; age-indeterminate ischemic changes in posterior right temporal and occipital lobes; please see full report - Date & Time Date: 02/15/17 Time:
[2017-02-15] MEDS: Levothyroxine 25 MCG TAB PO SCH (10:59)
[2017-02-15] MEDS: Vancomycin 1gm in NS 250ml 1 GM/250 ML BAG IVPB SCH ×2 (11:02→22:57)
--- NOTE | 2017-02-15 11:49 | CP.PCM.CON ---
<KarlosChely - Last Filed: 02/15/17 14:12> History of Present Illness - History of Present Illness History of Present Illness: 81 y/o female known to Dr. Elias's home visit service seen at bedside for painful big toes on both feet. Pt states it is tender to the touch underneath the nail area. Pt states she doesn't think it is the nail herself. Pt denies any trauma to the area. Pt denies any open wounds to the feet or toes. Pt denies F/C/N/V/CP/SOB. PMH: DM, CHF, HTN, hypothyroidism, hx of CVA PSH: appendectomy, cholecystectomy, cataracts All: Dilaudid, tramadol Social: denies EtOH, cigarette or illicit drug use Family: hx of diabetes and HTN in family Review of Systems - Review of Systems All systems: reviewed and no additional remarkable complaints except (per HPI) Past Patient History - Infectious Disease Hx of Infectious Diseases: None - Tetanus Immunizations Tetanus Immunization: Unknown - Past Social History Smoking Status: Never Smoked - CARDIAC Hx Cardiac Disorders: Yes Hx Congestive Heart Failure: Yes Hx Hypercholesterolemia: Yes Hx Hypertension: Yes - PULMONARY Hx Respiratory Disorders: Yes Hx Bronchitis: Yes - NEUROLOGICAL Hx Neurological Disorder: Yes HX Cerebrovascular Accident: Yes (no deficits) Hx Transient Ischemic Attacks (TIA): Yes - HEENT Hx HEENT Problems: Yes (uses glasses) Hx Cataracts: Yes (sx) Hx Glaucoma: Yes - RENAL Hx Chronic Kidney Disease: No - ENDOCRINE/METABOLIC Hx Endocrine Disorders: Yes Hx Diabetes Mellitus Type 2: Yes Hx Hypothyroidism: Yes - HEMATOLOGICAL/ONCOLOGICAL Hx Blood Transfusions: No - INTEGUMENTARY Hx Dermatological Problems: No - MUSCULOSKELETAL/RHEUMATOLOGICAL Hx Falls: No - GASTROINTESTINAL Hx Gastrointestinal Disorders: Yes (IBS) - GENITOURINARY/GYNECOLOGICAL Hx Genitourinary Disorders: Yes (frequent urination) - PSYCHIATRIC Hx Emotional Abuse: No Hx Physical Abuse: No Hx Substance Use: No - SURGICAL HISTORY Hx Surgeries: Yes Hx Appendectomy: Yes Hx Cholecystectomy: Yes - ANESTHESIA Hx Anesthesia: Yes Hx Anesthesia Reactions: No Hx Malignant Hyperthermia: No Meds Allergies/Adverse Reactions: Allergies Allergy/AdvReac Type Severity Reaction Status Date / Time hydromorphone HCl Allergy Severe HALLUCINATI Verified 02/14/17 17:16 [From Dilaudid] ONS tramadol Allergy Severe RASH Verified 02/14/17 17:16 - Medications Medications: Current Medications Clopidogrel Bisulfate (Plavix) 75 mg PO DAILY [facility] Last Admin: 02/15/17 10:59 Dose: 75 mg Furosemide (Lasix) 40 mg IVP DAILY [facility] [place] Last Admin: 02/15/17 10:59 Dose: 40 mg Gabapentin (Neurontin) 300 mg PO TID [facility] PRN Reason: Protocol Last Admin: 02/15/17 10:59 Dose: 300 mg Glimepiride (Amaryl) 4 mg PO BID [facility] Last Admin: 02/15/17 10:59 Dose: 4 mg Sodium Chloride (Sodium Chloride 0.45%) 1,000 mls @ 40 mls/hr IV .Q24H [facility] Last Admin: 02/15/17 03:25 Dose: 40 mls/hr Meropenem 1 gm/ Dextrose 100 mls @ 100 mls/hr IVPB Q8 [facility]IDIA PRN Reason: Protocol Stop: 02/21/17 23:46 Last Admin: 02/15/17 06:40 Dose: 100 mls/hr Vancomycin HCl (Vancomycin 1gm) 1 gm in 250 mls @ 167 mls/hr IVPB Q12H [facility] PRN Reason: Protocol Last Admin: 02/15/17 11:02 Dose: 167 mls/hr Insulin Human Regular (Humulin R Med) 0 units SC ACHS [facility]IA PRN Reason: Protocol Last Admin: 02/15/17 11:30 Dose: 3 units Levothyroxine Sodium (Synthroid) 25 mcg PO DAILY [facility] Last Admin: 02/15/17 10:59 Dose: 25 mcg Metformin HCl (Glucophage) 1,000 mg PO BID [facility] Last Admin: 02/15/17 11:02 Dose: 1,000 mg Physical Exam - Constitutional Appears: Well, Non-toxic, No Acute Distress - Extremities Exam Additional comments: Lower extremity focused: Vasc: DP/PT pulses are not palpable due to +3 pitting edema extending from tibial tuberosity distally to digits B/L; temp gradient warm to cool B/L; CFT delayed to all digits but present Derm: No open lesions, no erythema, no interdigital maceration, no clinical suspicion of infection Neuro: Protective sensation grossly intact B/L Ortho: Tenderness to palpation of distal hallux B/L - Neurological Exam Neurological exam: Alert, Oriented x3 - Psychiatric Exam Psychiatric exam: Normal Affect, Normal Mood Results - Vital Signs Recent Vital Signs: Last Vital Signs Temp 99.1 F 02/15/17 07:07 Pulse 83 02/15/17 06:00 Resp 20 02/15/17 06:00 BP 132/65 02/15/17 10:59 Pulse Ox 96 02/15/17 00:01 - Labs Result Diagrams: 02/15/17 06:00 02/15/17 06:00 Labs: Laboratory Results - last 24 hr 02/14/17 02/14/17 02/15/17 19:30 22:24 06:00 WBC 8.0 RBC 3.38 L Hgb 10.2 L Hct 30.9 L MCV 91.4 MCH 30.2 MCHC 33.0 RDW 15.0 H Plt Count 159 MPV 9.7 pO2 203 H VBG pH 7.48 H VBG pCO2 40.0 VBG HCO3 29.8 H VBG Total CO2 31.0 H VBG O2 Sat (Calc) 98.9 H VBG Base Excess 5.8 H VBG Potassium 2.9 L Sodium 138.0 Chloride 103.0 Glucose 144 H Lactate 2.6 H FiO2 21.0 Potassium Carbon Dioxide Anion Gap BUN Creatinine Est GFR ( Amer) Est GFR (Non-Af Amer) Random Glucose Calcium Magnesium Total Bilirubin AST ALT Alkaline Phosphatase Total Protein Albumin Globulin Albumin/Globulin Ratio Venous Blood Potassium 2.9 L Urine Color Yellow Urine Appearance Slight-cloudy Urine pH 6.0 Ur Specific [place] 1.015 Urine Protein 30 H Urine Glucose (UA) Negative Urine Ketones Negative Urine Blood Negative Urine Nitrate Positive H Urine Bilirubin Negative Urine Urobilinogen 0.2 Ur Leukocyte Esterase Small H Urine RBC 1 - 3 Urine WBC 10 - 15 Ur Epithelial Cells 10 - 12 Urine Bacteria Mod 02/15/17 02/15/17 02/15/17 06:00 06:00 09:40 WBC RBC Hgb Hct MCV MCH MCHC RDW Plt Count MPV pO2 32 44 VBG pH 7.43 7.44 H VBG pCO2 45.0 40.0 VBG HCO3 29.9 H 27.2 VBG Total CO2 31.3 H 28.4 H VBG O2 Sat (Calc) 69.8 H 82.7 H VBG Base Excess 4.8 H 2.8 H VBG Potassium 3.0 L 2.8 L Sodium 137 138.0 136.0 Chloride 99 102.0 99.0 Glucose 228 H 250 H Lactate 2.6 H 4.3 H* FiO2 21.0 21.0 Potassium 3.2 L Carbon Dioxide 28 Anion Gap 13 BUN 13 Creatinine 0.8 Est GFR ( Amer) > 60 Est GFR (Non-Af Amer) > 60 Random Glucose 220 H Calcium 8.6 Magnesium 1.5 L Total Bilirubin 0.6 AST 21 ALT 32 Alkaline Phosphatase 56 Total Protein 6.5 Albumin 3.5 Globulin 3.0 Albumin/Globulin Ratio 1.2 Venous Blood Potassium 3.0 L 2.8 L Urine Color Urine Appearance Urine pH Ur Specific [place] Urine Protein Urine Glucose (UA) Urine Ketones Urine Blood Urine Nitrate Urine Bilirubin Urine Urobilinogen Ur Leukocyte Esterase Urine RBC Urine WBC Ur Epithelial Cells Urine Bacteria Assessment & Plan - Assessment and Plan (Free Text) Assessment: 81 y/o diabetic female seen for bilateral big toe pain Plan: 81 y/o female seen at bedside with attending Dr. Elias Chart, labs and vitals reviewed- Tmax 101.8, WBC 8.0 Ordered x-rays of B/L feet, r/o fracture or subungual exostosis Recommended patient to continue with compression stockings at home Recommended patient ambulate in shoes with a wider toe box that does not put pressure on her big toes Podiatry will continue to follow while in house Thank you for this consult <Yifan Elias - Last Filed: 02/16/17 08:29> Meds - Medications Medications: Current Medications Atorvastatin Calcium (Lipitor) 10 mg PO DIN [facility] Last Admin: 02/15/17 21:48 Dose: 10 mg Clopidogrel Bisulfate (Plavix) 75 mg PO DAILY [facility] Last Admin: 02/15/17 10:59 Dose: 75 mg Furosemide (Lasix) 40 mg IVP DAILY [facility] Last Admin: 02/15/17 10:59 Dose: 40 mg Gabapentin (Neurontin) 300 mg PO TID [facility] PRN Reason: Protocol Last Admin: 02/15/17 18:38 Dose: 300 mg Glimepiride (Amaryl) 4 mg PO BID [facility] Last Admin: 02/15/17 18:38 Dose: 4 mg Sodium Chloride (Sodium Chloride 0.45%) 1,000 mls @ 40 mls/hr IV .Q24H [facility] Last Admin: 02/15/17 23:02 Dose: Not Given Meropenem 1 gm/ Dextrose 100 mls @ 100 mls/hr IVPB Q8 [facility]IA PRN Reason: Protocol Stop: 02/21/17 23:46 Last Admin: 02/16/17 05:30 Dose: 100 mls/hr Vancomycin HCl (Vancomycin 1gm) 1 gm in 250 mls @ 167 mls/hr IVPB Q12H [facility] PRN Reason: Protocol Last Admin: 02/15/17 22:57 Dose: 167 mls/hr Insulin Human Regular (Humulin R Med) 0 units SC ACHS [facility] PRN Reason: Protocol Last Admin: 02/15/17 23:03 Dose: Not Given Ketorolac Tromethamine (Toradol) 30 mg IVP Q6 PRN PRN Reason: Headache Last Admin: 02/15/17 16:06 Dose: 30 mg Levothyroxine Sodium (Synthroid) 25 mcg PO DAILY [facility] Last Admin: 02/15/17 10:59 Dose: 25 mcg Loperamide HCl (Imodium) 2 mg PO QID PRN PRN Reason: Diarrhea Last Admin: 02/15/17 21:46 Dose: 2 mg Metformin HCl (Glucophage) 1,000 mg PO BID [facility] Last Admin: 02/15/17 18:39 Dose: 1,000 mg Results - Vital Signs Recent Vital Signs: Last Vital Signs Temp 98.4 F 02/16/17 06:00 Pulse 73 02/16/17 06:00 Resp 19 02/16/17 06:00 BP 142/66 02/16/17 06:00 Pulse Ox 97 02/16/17 06:00 - Labs Result Diagrams: 02/16/17 06:00 02/16/17 06:00 Labs: Laboratory Results - last 24 hr 02/15/17 02/16/17 02/16/17 09:40 06:00 06:00 WBC 8.3 RBC 3.13 L Hgb 9.4 L Hct 28.8 L MCV 92.0 MCH 30.0 MCHC 32.6 RDW 15.2 H Plt Count 153 MPV 9.6 pO2 44 VBG pH 7.44 H VBG pCO2 40.0 VBG HCO3 27.2 VBG Total CO2 28.4 H VBG O2 Sat (Calc) 82.7 H VBG Base Excess 2.8 H VBG Potassium 2.8 L Sodium 136.0 136 Chloride 99.0 99 Glucose 250 H Lactate 4.3 H* FiO2 21.0 Potassium 2.7 L* Carbon Dioxide 28 Anion Gap 12 BUN 14 Creatinine 0.9 Est GFR ( Amer) > 60 Est GFR (Non-Af Amer) > 60 Random Glucose 96 Calcium 8.6 Magnesium 1.6 L Total Bilirubin 0.6 AST 24 ALT 26 Alkaline Phosphatase 51 Total Protein 6.3 Albumin 3.4 Globulin 2.9 Albumin/Globulin Ratio 1.2 Venous Blood Potassium 2.8 L Attending/Attestation - Attestation I have personally seen and examined this patient.: Yes I have fully participated in the care of the patient.: Yes I have reviewed all pertinent clinical information: Yes
--- NOTE | 2017-02-15 12:01 | CP.PCM.CON ---
<José Miguel Rao - Last Filed: 02/15/17 12:06> History of Present Illness - History of Present Illness History of Present Illness: Neurology consult note for Dr. 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 She reported that she first started having symptoms earlier that day and became worried she may be having a stroke. Her daughter at the time noted that she seemed confused, forgetful and had chills. She also reported loose bowel movements which she admits had been a chronic issue. She denied chest pain, palpitations, SOB, abdominal pain, nausea, vomiting, cough, focal weakness, numbness, tingling. Neurology consulted for evaluation of confusion/rule out CVA. 12point ROS as per HPI above otherwise negative PMH: as stated above PSH: cholecystectomy Allergies: hydromorphone, tramadol Family Hx: Non-contributory Social Hx: Denies tobacco, alcohol and illicit drug use PMD: Dr. March Past Patient History - Infectious Disease Hx of Infectious Diseases: None - Tetanus Immunizations Tetanus Immunization: Unknown - Past Social History Smoking Status: Never Smoked - CARDIAC Hx Cardiac Disorders: Yes Hx Congestive Heart Failure: Yes Hx Hypercholesterolemia: Yes Hx Hypertension: Yes - PULMONARY Hx Respiratory Disorders: Yes Hx Bronchitis: Yes - NEUROLOGICAL Hx Neurological Disorder: Yes HX Cerebrovascular Accident: Yes (no deficits) Hx Transient Ischemic Attacks (TIA): Yes - HEENT Hx HEENT Problems: Yes (uses glasses) Hx Cataracts: Yes (sx) Hx Glaucoma: Yes - RENAL Hx Chronic Kidney Disease: No - ENDOCRINE/METABOLIC Hx Endocrine Disorders: Yes Hx Diabetes Mellitus Type 2: Yes Hx Hypothyroidism: Yes - HEMATOLOGICAL/ONCOLOGICAL Hx Blood Transfusions: No - INTEGUMENTARY Hx Dermatological Problems: No - MUSCULOSKELETAL/RHEUMATOLOGICAL Hx Falls: No - GASTROINTESTINAL Hx Gastrointestinal Disorders: Yes (IBS) - GENITOURINARY/GYNECOLOGICAL Hx Genitourinary Disorders: Yes (frequent urination) - PSYCHIATRIC Hx Emotional Abuse: No Hx Physical Abuse: No Hx Substance Use: No - SURGICAL HISTORY Hx Surgeries: Yes Hx Appendectomy: Yes Hx Cholecystectomy: Yes - ANESTHESIA Hx Anesthesia: Yes Hx Anesthesia Reactions: No Hx Malignant Hyperthermia: No Meds Allergies/Adverse Reactions: Allergies Allergy/AdvReac Type Severity Reaction Status Date / Time hydromorphone HCl Allergy Severe HALLUCINATI Verified 02/14/17 17:16 [From Dilaudid] ONS tramadol Allergy Severe RASH Verified 02/14/17 17:16 - Medications Medications: Current Medications Clopidogrel Bisulfate (Plavix) 75 mg PO DAILY [facility] Last Admin: 02/15/17 10:59 Dose: 75 mg Furosemide (Lasix) 40 mg IVP DAILY [facility] Last Admin: 02/15/17 10:59 Dose: 40 mg Gabapentin (Neurontin) 300 mg PO TID [facility] PRN Reason: Protocol Last Admin: 02/15/17 10:59 Dose: 300 mg Glimepiride (Amaryl) 4 mg PO BID [facility] Last Admin: 02/15/17 10:59 Dose: 4 mg Sodium Chloride (Sodium Chloride 0.45%) 1,000 mls @ 40 mls/hr IV .Q24H [facility] Last Admin: 02/15/17 03:25 Dose: 40 mls/hr Meropenem 1 gm/ Dextrose 100 mls @ 100 mls/hr IVPB Q8 [facility] PRN Reason: Protocol Stop: 02/21/17 23:46 Last Admin: 02/15/17 06:40 Dose: 100 mls/hr Vancomycin HCl (Vancomycin 1gm) 1 gm in 250 mls @ 167 mls/hr IVPB Q12H [facility] PRN Reason: Protocol Last Admin: 02/15/17 11:02 Dose: 167 mls/hr Insulin Human Regular (Humulin R Med) 0 units SC ACHS [facility] PRN Reason: Protocol Last Admin: 02/15/17 11:30 Dose: 3 units Levothyroxine Sodium (Synthroid) 25 mcg PO DAILY [facility] Last Admin: 02/15/17 10:59 Dose: 25 mcg Metformin HCl (Glucophage) 1,000 mg PO BID [facility] Last Admin: 02/15/17 11:02 Dose: 1,000 mg Physical Exam - Constitutional Appears: Non-toxic, No Acute Distress - Head Exam Head Exam: ATRAUMATIC, NORMOCEPHALIC - Eye Exam Eye Exam: EOMI, PERRL - ENT Exam ENT Exam: Mucous Membranes Moist - Neck Exam Neck exam: Positive for: Normal Inspection. Negative for: Lymphadenopathy, Tenderness, Thyromegaly - Respiratory Exam Respiratory Exam: Clear to Auscultation Bilateral. absent: Rales, Rhonchi, Wheezes - Cardiovascular Exam Cardiovascular Exam: RRR, +S1, +S2, Systolic Murmur. absent: Gallop, JVD, Rubs - GI/Abdominal Exam GI & Abdominal Exam: Distended, Soft. absent: Firm, Guarding, Rebound, Tenderness - Extremities Exam Extremities exam: Positive for: normal inspection - Neurological Exam Neurological exam: Alert, CN II-XII Intact, Oriented x3 Additional comments: awake, alert, oriented x3 EOMI PERRL motor function grossly intact bilaterally sensory intact throughout no drift proprioception in tact babinski downward going bilaterally gait deferred - Psychiatric Exam Psychiatric exam: Normal Affect, Normal Mood - Skin Skin Exam: Dry, Intact, Normal Color, Warm Results - Vital Signs Recent Vital Signs: Last Vital Signs Temp 99.1 F 02/15/17 07:07 Pulse 78 02/15/17 10:00 Resp 20 02/15/17 06:00 BP 132/65 02/15/17 10:59 Pulse Ox 96 02/15/17 00:01 - Labs Result Diagrams: 02/15/17 06:00 02/15/17 06:00 Labs: Laboratory Results - last 24 hr 02/14/17 02/14/17 02/15/17 19:30 22:24 06:00 WBC 8.0 RBC 3.38 L Hgb 10.2 L Hct 30.9 L MCV 91.4 MCH 30.2 MCHC 33.0 RDW 15.0 H Plt Count 159 MPV 9.7 pO2 203 H VBG pH 7.48 H VBG pCO2 40.0 VBG HCO3 29.8 H VBG Total CO2 31.0 H VBG O2 Sat (Calc) 98.9 H VBG Base Excess 5.8 H VBG Potassium 2.9 L Sodium 138.0 Chloride 103.0 Glucose 144 H Lactate 2.6 H FiO2 21.0 Potassium Carbon Dioxide Anion Gap BUN Creatinine Est GFR ( Amer) Est GFR (Non-Af Amer) Random Glucose Calcium Magnesium Total Bilirubin AST ALT Alkaline Phosphatase Total Protein Albumin Globulin Albumin/Globulin Ratio Venous Blood Potassium 2.9 L Urine Color Yellow Urine Appearance Slight-cloudy Urine pH 6.0 Ur Specific [place] 1.015 Urine Protein 30 H Urine Glucose (UA) Negative Urine Ketones Negative Urine Blood Negative Urine Nitrate Positive H Urine Bilirubin Negative Urine Urobilinogen 0.2 Ur Leukocyte Esterase Small H Urine RBC 1 - 3 Urine WBC 10 - 15 Ur Epithelial Cells 10 - 12 Urine Bacteria Mod 02/15/17 02/15/17 02/15/17 06:00 06:00 09:40 WBC RBC Hgb Hct MCV MCH MCHC RDW Plt Count MPV pO2 32 44 VBG pH 7.43 7.44 H VBG pCO2 45.0 40.0 VBG HCO3 29.9 H 27.2 VBG Total CO2 31.3 H 28.4 H VBG O2 Sat (Calc) 69.8 H 82.7 H VBG Base Excess 4.8 H 2.8 H VBG Potassium 3.0 L 2.8 L Sodium 137 138.0 136.0 Chloride 99 102.0 99.0 Glucose 228 H 250 H Lactate 2.6 H 4.3 H* FiO2 21.0 21.0 Potassium 3.2 L Carbon Dioxide 28 Anion Gap 13 BUN 13 Creatinine 0.8 Est GFR ( Amer) > 60 Est GFR (Non-Af Amer) > 60 Random Glucose 220 H Calcium 8.6 Magnesium 1.5 L Total Bilirubin 0.6 AST 21 ALT 32 Alkaline Phosphatase 56 Total Protein 6.5 Albumin 3.5 Globulin 3.0 Albumin/Globulin Ratio 1.2 Venous Blood Potassium 3.0 L 2.8 L Urine Color Urine Appearance Urine pH Ur Specific [place] Urine Protein Urine Glucose (UA) Urine Ketones Urine Blood Urine Nitrate Urine Bilirubin Urine Urobilinogen Ur Leukocyte Esterase Urine RBC Urine WBC Ur Epithelial Cells Urine Bacteria Assessment & Plan - Assessment and Plan (Free Text) Plan: 81yo female with history of DM, HTN, GERD, Osteoarthritis, 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 Neurology consulted for evaluation of confusion and rule out potential CVA/TIA. 1. Sepsis secondary to UTI 2. Confusion 3. DM type2 4. HTN 5. GERD 6. Osteoarthritis -Confusion likely secondary to sepsis due to urinary tract infection however we will obtain a brain MRI to rule out new CVA -Urinalysis was notable for nitrates, leukocyte esterase, WBC's and bacteria; Lactate on admission was notable at 3.7 and patient had a Tmax of 101.8F, -At this time, recommend follow up urine culture and infectious disease recommendations -Continue IV antibiotics and IVF hydration -Monitor and replete electrolytes as indicated -Physical therapy evaluation -Maintain blood glucose between 140-180 -Maintain systolic blood pressure between 120-130 -Continue Gabapentin 300mg PO TID for neuropathic pain -Continue Plavix 75mg PO daily for stroke prevention -Continue present medical management as per primary team -Head CT reviewed; revealed old left frontal, left occipital and basal ganglia infarcts; age-indeterminate ischemic changes in posterior right temporal and occipital lobes; please see full report Patient seen and case discussed/reviewed with attending, Dr. Nguyen <Chai Nguyen - Last Filed: 02/15/17 12:30> Meds - Medications Medications: Current Medications Clopidogrel Bisulfate (Plavix) 75 mg PO DAILY [facility] Last Admin: 02/15/17 10:59 Dose: 75 mg Furosemide (Lasix) 40 mg IVP DAILY [facility] Last Admin: 02/15/17 10:59 Dose: 40 mg Gabapentin (Neurontin) 300 mg PO TID [facility] PRN Reason: Protocol Last Admin: 02/15/17 10:59 Dose: 300 mg Glimepiride (Amaryl) 4 mg PO BID [facility] Last Admin: 02/15/17 10:59 Dose: 4 mg Sodium Chloride (Sodium Chloride 0.45%) 1,000 mls @ 40 mls/hr IV .Q24H [facility] Last Admin: 02/15/17 03:25 Dose: 40 mls/hr Meropenem 1 gm/ Dextrose 100 mls @ 100 mls/hr IVPB Q8 [facility] PRN Reason: Protocol Stop: 02/21/17 23:46 Last Admin: 02/15/17 06:40 Dose: 100 mls/hr Vancomycin HCl (Vancomycin 1gm) 1 gm in 250 mls @ 167 mls/hr IVPB Q12H [facility] PRN Reason: Protocol Last Admin: 02/15/17 11:02 Dose: 167 mls/hr Insulin Human Regular (Humulin R Med) 0 units SC ACHS [facility] PRN Reason: Protocol Last Admin: 02/15/17 11:30 Dose: 3 units Levothyroxine Sodium (Synthroid) 25 mcg PO DAILY [facility] Last Admin: 02/15/17 10:59 Dose: 25 mcg Metformin HCl (Glucophage) 1,000 mg PO BID [facility] Last Admin: 11/10/17 11:02 Dose: 1,000 mg Results - Vital Signs Recent Vital Signs: Last Vital Signs Temp 98.3 F 02/15/17 12:00 Pulse 80 02/15/17 12:00 Resp 18 02/15/17 12:00 BP 134/60 02/15/17 12:00 Pulse Ox 96 02/15/17 00:01 - Labs Result Diagrams: 02/15/17 06:00 02/15/17 06:00 Labs: Laboratory Results - last 24 hr 02/14/17 02/14/17 02/15/17 19:30 22:24 06:00 WBC 8.0 RBC 3.38 L Hgb 10.2 L Hct 30.9 L MCV 91.4 MCH 30.2 MCHC 33.0 RDW 15.0 H Plt Count 159 MPV 9.7 pO2 203 H VBG pH 7.48 H VBG pCO2 40.0 VBG HCO3 29.8 H VBG Total CO2 31.0 H VBG O2 Sat (Calc) 98.9 H VBG Base Excess 5.8 H VBG Potassium 2.9 L Sodium 138.0 Chloride 103.0 Glucose 144 H Lactate 2.6 H FiO2 21.0 Potassium Carbon Dioxide Anion Gap BUN Creatinine Est GFR ( Amer) Est GFR (Non-Af Amer) Random Glucose Calcium Magnesium Total Bilirubin AST ALT Alkaline Phosphatase Total Protein Albumin Globulin Albumin/Globulin Ratio Venous Blood Potassium 2.9 L Urine Color Yellow Urine Appearance Slight-cloudy Urine pH 6.0 Ur Specific [place] 1.015 Urine Protein 30 H Urine Glucose (UA) Negative Urine Ketones Negative Urine Blood Negative Urine Nitrate Positive H Urine Bilirubin Negative Urine Urobilinogen 0.2 Ur Leukocyte Esterase Small H Urine RBC 1 - 3 Urine WBC 10 - 15 Ur Epithelial Cells 10 - 12 Urine Bacteria Mod 02/15/17 02/15/17 02/15/17 06:00 06:00 09:40 WBC RBC Hgb Hct MCV MCH MCHC RDW Plt Count MPV pO2 32 44 VBG pH 7.43 7.44 H VBG pCO2 45.0 40.0 VBG HCO3 29.9 H 27.2 VBG Total CO2 31.3 H 28.4 H VBG O2 Sat (Calc) 69.8 H 82.7 H VBG Base Excess 4.8 H 2.8 H VBG Potassium 3.0 L 2.8 L Sodium 137 138.0 136.0 Chloride 99 102.0 99.0 Glucose 228 H 250 H Lactate 2.6 H 4.3 H* FiO2 21.0 21.0 Potassium 3.2 L Carbon Dioxide 28 Anion Gap 13 BUN 13 Creatinine 0.8 Est GFR ( Amer) > 60 Est GFR (Non-Af Amer) > 60 Random Glucose 220 H Calcium 8.6 Magnesium 1.5 L Total Bilirubin 0.6 AST 21 ALT 32 Alkaline Phosphatase 56 Total Protein 6.5 Albumin 3.5 Globulin 3.0 Albumin/Globulin Ratio 1.2 Venous Blood Potassium 3.0 L 2.8 L Urine Color Urine Appearance Urine pH Ur Specific [place] Urine Protein Urine Glucose (UA) Urine Ketones Urine Blood Urine Nitrate Urine Bilirubin Urine Urobilinogen Ur Leukocyte Esterase Urine RBC Urine WBC Ur Epithelial Cells Urine Bacteria Attending/Attestation - Attestation I have personally seen and examined this patient.: Yes I have fully participated in the care of the patient.: Yes I have reviewed all pertinent clinical information: Yes
--- NOTE | 2017-02-15 13:54 | PN ---
DATE: SUBJECTIVE: She came in last night, daughter bringing her in. She was lethargic, confused, elevated temperature, hot, and now this morning a little bit better in bed. She not as confused, she understands she is in the hospital. She is on IV fluids, Amaryl, aspirin, metformin, insulin coverage, potassium replacement, Lasix IV, magnesium replacement, Merrem I.V., which I think is doing a great job, Neurontin, Plavix, levothyroxine, Tylenol, and vancomycin. She is doing better. She is hungry a little bit this morning. PHYSICAL EXAMINATION: VITAL SIGNS: She still has a 99.1 temperature, it was as high as 100.2 last night, 136/68 blood pressure, 83 pulse, 20 respiratory rate, and 96% O2 sat on room air. HEENT: Head is atraumatic and normocephalic. Less stress, alert, looking at me now. Last night, she was only giving eye contact. Throat is moist. NECK: Supple. HEART: Regular rate. LUNGS: Clear to auscultation. ABDOMEN: Soft. No guarding. No rebound. No CVA tenderness. EXTREMITIES: Have edema, but she can move them better and I would like to see how she does with physical therapy. LABORATORY DATA: On blood tests; she has 137 sodium, potassium 1.3 up to 3.2, I am going to give 2 more K BUN is 13, and creatinine 0.8. GFR is greater than 60. Sugar is 220, she is on coverage. Calcium is 8.6 and magnesium is up to 1.5, I will replace the magnesium for her, replace potassium, and continue with insulin coverage. AST is 21, ALT is 32,alk phos 56, and total troponin is 6.5. White count is 8, little bit better, hemoglobin 10.2, hematocrit 30.9, and platelets 159. Lactate was 3.7, still high at 2.6, but improving. She will be seen by Infectious Disease, Neurology, which I think she is improving with the change in mentation. I need to see what she does in physical therapy. Continue with aggressive treatment and care. She has sepsis, possible UTI, old CVA, diabetes, low potassium, and low magnesium. Dante March DO [facility]
--- NOTE | 2017-02-15 15:43 | CARD ---
APPROVED REPORT EKG Measurement Heart [id number] <Conclusion> Sinus rhythm with PACs. Poor R Progression V1-V4. Non Specific ST_T Changes.
--- NOTE | 2017-02-15 15:59 | CP.PCM.CON ---
History of Present Illness - History of Present Illness History of Present Illness: 81 year old female with PMH of DM, chronic CHF, hypothyroidism, history of CVA, HTN, S/P appendectomy, S/P cholecystectomy, cataracts, morbid obesity with BMI 41 was brought in by family for apparent confusion. She seemed to be not responding appropriately as per the daughter and would forget details of their conversations since yesterday. She did not note fevers, no convulsions, no head trauma, no convulsions, no falls, no diarrhea, no vomiting. Currently the patient is comfortable on a chair, not in distress, denies headache or dizziness , no abdominal pain, no nausea, no dysuria. Urinalysis in the ED revealed some WBC's. Infectious Diseases consult is requested to further evaluate and manage. Review of Systems - Review of Systems All systems: reviewed and no additional remarkable complaints except (as per HPI ) Past Patient History - Infectious Disease Hx of Infectious Diseases: None - Tetanus Immunizations Tetanus Immunization: Unknown - Past Social History Smoking Status: Never Smoked - CARDIAC Hx Cardiac Disorders: Yes Hx Congestive Heart Failure: Yes Hx Hypercholesterolemia: Yes Hx Hypertension: Yes - PULMONARY Hx Respiratory Disorders: Yes Hx Bronchitis: Yes - NEUROLOGICAL Hx Neurological Disorder: Yes HX Cerebrovascular Accident: Yes (no deficits) Hx Transient Ischemic Attacks (TIA): Yes - HEENT Hx HEENT Problems: Yes (uses glasses) Hx Cataracts: Yes (sx) Hx Glaucoma: Yes - RENAL Hx Chronic Kidney Disease: No - ENDOCRINE/METABOLIC Hx Endocrine Disorders: Yes Hx Diabetes Mellitus Type 2: Yes Hx Hypothyroidism: Yes - HEMATOLOGICAL/ONCOLOGICAL Hx Blood Transfusions: No - INTEGUMENTARY Hx Dermatological Problems: No - MUSCULOSKELETAL/RHEUMATOLOGICAL Hx Falls: No - GASTROINTESTINAL Hx Gastrointestinal Disorders: Yes (IBS) - GENITOURINARY/GYNECOLOGICAL Hx Genitourinary Disorders: Yes (frequent urination) - PSYCHIATRIC Hx Emotional Abuse: No Hx Physical Abuse: No Hx Substance Use: No - SURGICAL HISTORY Hx Surgeries: Yes Hx Appendectomy: Yes Hx Cholecystectomy: Yes - ANESTHESIA Hx Anesthesia: Yes Hx Anesthesia Reactions: No Hx Malignant Hyperthermia: No Meds Allergies/Adverse Reactions: Allergies Allergy/AdvReac Type Severity Reaction Status Date / Time hydromorphone HCl Allergy Severe HALLUCINATI Verified 02/14/17 17:16 [From Dilaudid] ONS tramadol Allergy Severe RASH Verified 02/14/17 17:16 - Medications Medications: Current Medications Atorvastatin Calcium (Lipitor) 10 mg PO DIN [facility] Clopidogrel Bisulfate (Plavix) 75 mg PO DAILY [facility] Last Admin: 02/15/17 10:59 Dose: 75 mg Furosemide (Lasix) 40 mg IVP DAILY [facility] Last Admin: 02/15/17 10:59 Dose: 40 mg Gabapentin (Neurontin) 300 mg PO TID [facility] PRN Reason: Protocol Last Admin: 02/15/17 14:25 Dose: 300 mg Glimepiride (Amaryl) 4 mg PO BID [facility] Last Admin: 02/15/17 10:59 Dose: 4 mg Sodium Chloride (Sodium Chloride 0.45%) 1,000 mls @ 40 mls/hr IV .Q24H [facility] Last Admin: 02/15/17 03:25 Dose: 40 mls/hr Meropenem 1 gm/ Dextrose 100 mls @ 100 mls/hr IVPB Q8 [facility] PRN Reason: Protocol Stop: 02/21/17 23:46 Last Admin: 02/15/17 14:24 Dose: 100 mls/hr Vancomycin HCl (Vancomycin 1gm) 1 gm in 250 mls @ 167 mls/hr IVPB Q12H [facility] PRN Reason: Protocol Last Admin: 02/15/17 11:02 Dose: 167 mls/hr Insulin Human Regular (Humulin R Med) 0 units SC ACHS [facility] PRN Reason: Protocol Last Admin: 02/15/17 11:30 Dose: 3 units Ketorolac Tromethamine (Toradol) 30 mg IVP Q6 PRN PRN Reason: Headache Levothyroxine Sodium (Synthroid) 25 mcg PO DAILY [facility] Last Admin: 02/15/17 10:59 Dose: 25 mcg Loperamide HCl (Imodium) 2 mg PO QID PRN PRN Reason: Diarrhea Metformin HCl (Glucophage) 1,000 mg PO BID [facility] Last Admin: 02/15/17 11:02 Dose: 1,000 mg Physical Exam - Constitutional Appears: Non-toxic, No Acute Distress - Head Exam Head Exam: NORMAL INSPECTION - ENT Exam ENT Exam: Mucous Membranes Moist - Neck Exam Neck exam: Negative for: Lymphadenopathy, Meningismus - Respiratory Exam Respiratory Exam: Decreased Breath Sounds - Cardiovascular Exam Cardiovascular Exam: +S1, +S2 - GI/Abdominal Exam GI & Abdominal Exam: Soft. absent: Tenderness Results - Vital Signs Recent Vital Signs: Last Vital Signs Temp 98.3 F 11/10/17 12:00 Pulse 80 02/15/17 12:00 Resp 18 02/15/17 12:00 BP 134/60 02/15/17 12:00 Pulse Ox 96 02/15/17 00:01 - Labs Result Diagrams: 02/15/17 06:00 02/15/17 06:00 Labs: Laboratory Results - last 24 hr 02/14/17 02/14/17 02/15/17 19:30 22:24 06:00 WBC 8.0 RBC 3.38 L Hgb 10.2 L Hct 30.9 L MCV 91.4 MCH 30.2 MCHC 33.0 RDW 15.0 H Plt Count 159 MPV 9.7 pO2 203 H VBG pH 7.48 H VBG pCO2 40.0 VBG HCO3 29.8 H VBG Total CO2 31.0 H VBG O2 Sat (Calc) 98.9 H VBG Base Excess 5.8 H VBG Potassium 2.9 L Sodium 138.0 Chloride 103.0 Glucose 144 H Lactate 2.6 H FiO2 21.0 Potassium Carbon Dioxide Anion Gap BUN Creatinine Est GFR ( Amer) Est GFR (Non-Af Amer) Random Glucose Calcium Magnesium Total Bilirubin AST ALT Alkaline Phosphatase Total Protein Albumin Globulin Albumin/Globulin Ratio Venous Blood Potassium 2.9 L Urine Color Yellow Urine Appearance Slight-cloudy Urine pH 6.0 Ur Specific [place] 1.015 Urine Protein 30 H Urine Glucose (UA) Negative Urine Ketones Negative Urine Blood Negative Urine Nitrate Positive H Urine Bilirubin Negative Urine Urobilinogen 0.2 Ur Leukocyte Esterase Small H Urine RBC 1 - 3 Urine WBC 10 - 15 Ur Epithelial Cells 10 - 12 Urine Bacteria Mod 02/15/17 02/15/17 02/15/17 06:00 06:00 09:40 WBC RBC Hgb Hct MCV MCH MCHC RDW Plt Count MPV pO2 32 44 VBG pH 7.43 7.44 H VBG pCO2 45.0 40.0 VBG HCO3 29.9 H 27.2 VBG Total CO2 31.3 H 28.4 H VBG O2 Sat (Calc) 69.8 H 82.7 H VBG Base Excess 4.8 H 2.8 H VBG Potassium 3.0 L 2.8 L Sodium 137 138.0 136.0 Chloride 99 102.0 99.0 Glucose 228 H 250 H Lactate 2.6 H 4.3 H* FiO2 21.0 21.0 Potassium 3.2 L Carbon Dioxide 28 Anion Gap 13 BUN 13 Creatinine 0.8 Est GFR ( Amer) > 60 Est GFR (Non-Af Amer) > 60 Random Glucose 220 H Calcium 8.6 Magnesium 1.5 L Total Bilirubin 0.6 AST 21 ALT 32 Alkaline Phosphatase 56 Total Protein 6.5 Albumin 3.5 Globulin 3.0 Albumin/Globulin Ratio 1.2 Venous Blood Potassium 3.0 L 2.8 L Urine Color Urine Appearance Urine pH Ur Specific [place] Urine Protein Urine Glucose (UA) Urine Ketones Urine Blood Urine Nitrate Urine Bilirubin Urine Urobilinogen Ur Leukocyte Esterase Urine RBC Urine WBC Ur Epithelial Cells Urine Bacteria Assessment & Plan - Assessment and Plan (Free Text) Plan: Assessment Systemic Inflammatory REsponse Syndrome, R/O sepsis due to UTI DM chronic CHF hypothyroidism history of CVA, R/O new onset CVA HTN S/P appendectomy S/P cholecystectomy cataracts morbid obesity with BMI 41 Plan Started patient on Vancomycin and Merrem pending blood and urine cx Neuro following for confusion - follow up brain MRI results will monitor clinically
--- NOTE | 2017-02-15 16:21 | MRI ---
PROCEDURE: MRI BRAIN WITHOUT CONTRAST HISTORY: r/o CVA COMPARISON: Comparison is made to the previous study dated 12/22/2013 TECHNIQUE: Multiplanar, multisequence MR images of the brain were obtained without intravenous contrast enhancement. FINDINGS: HEMORRHAGE: None DWI: There is a focal diffusion restriction at the right occipital lobe suggestive of acute infarction. BRAIN PARENCHYMA: Again seen is focal encephalomalacia at the left frontal lobe surrounding with edema. There is interval appearance of focal hyperintense T2 and FLAIR signal at the medial aspect of the right cerebellum since the previous exam may represent focal encephalomalacia. No evidence of mass effect or midline shift atrophy and mild chronic microvascular ischemic disease are again noted. VENTRICLES: Unremarkable. No hydrocephalus. CRANIUM: Unremarkable. ORBITS: Grossly unremarkable. PARANASAL SINUSES/MASTOIDS: Again seen is mucosal retention cyst at the right maxillary sinus. VASCULAR SYSTEM: Skull base flow voids intact. OTHER FINDINGS: None. IMPRESSION: Diffusion restriction at the right occipital lobe suggestive of acute infarction. Re- demonstration of focal encephalomalacia at the left frontal lobe surrounding with mild edema. Interval appearance of new focal hyperintense T2 and FLAIR signal at the medial aspect of the right cerebellum may represent small old infarction/ encephalomalacia.
[2017-02-16] MEDS: Meropenem 1 GM in Dextrose 5% In Water 100 ML IVPB SCH ×3 (05:30→21:30)
[2017-02-16 07:11] LABS: HEMATOCRIT 28.8 % (36.0-48.0); MEAN CORPUSCULAR HGB CONC 32.6 g/dl (31.0-37.0); MEAN PLATELET VOLUME 9.6 fl (7.0-11.0); RED CELL DISTRIBUTION WIDTH 15.2 % (11.5-14.5); WHITE BLOOD COUNT 8.3 10^3/ul (4.5-11.0)
[2017-02-16 07:20] LABS: ALB/GLOB RATIO 1.2 (1.1-1.8); ALKALINE PHOSPHATASE 51 U/L (38-126); ALT/SGPT 26 U/L (7-56); AST/SGOT 24 U/L (14-36); BILIRUBIN,TOTAL 0.6 mg/dL (0.2-1.3); BLOOD UREA NITROGEN 14 mg/dL (7-21); CALCIUM 8.6 mg/dL (8.4-10.5); CARBON DIOXIDE 28 mmol/L (21-33); CHLORIDE 99 mmol/L (98-107); GFR AFRICAN-AMERICAN > 60; GLUCOSE,RANDOM 96 mg/dL (70-110); MAGNESIUM 1.6 mg/dL (1.7-2.2); SODIUM 136 mmol/L (132-148); TOTAL PROTEIN 6.3 g/dL (5.8-8.3)
[2017-02-16 07:25] LABS: POTASSIUM 2.7 mmol/L (3.6-5.0)
[2017-02-16] MEDS ORDERED: Potassium Chloride 40 mEq/30 ml LIQ UD PO ONE (08:34)
--- NOTE | 2017-02-16 08:46 | RAD ---
HISTORY: ABDOMINAL PAIN COMPARISON: No prior. FINDINGS: BOWEL: Suboptimal study due to the patient's body habitus. Slightly dilated small and large bowel loops seen at the mid abdomen. BONES: Normal. OTHER FINDINGS: None. IMPRESSION: Suboptimal study due to the patient's body habitus. Mildly dilated small and large bowel loops seen at the mid abdomen.
--- NOTE | 2017-02-16 09:05 | RAD ---
PROCEDURE: Bilateral Feet Radiographs. HISTORY: big toe pain COMPARISON: None. FINDINGS: BONES: Right Foot: Normal. No fracture. Diffuse osteopenia noted. Left Foot: Normal. No fracture. Diffuse osteopenia noted. JOINTS: Right Foot: Arthritic degenerative changes Left Foot: Arthritic degenerative changes SOFT TISSUES: Right Foot: Mild diffuse soft tissue edema. Left Foot: Mild diffuse soft tissue edema. OTHER FINDINGS: None. IMPRESSION: No evidence of acute fracture or dislocation. Diffuse osteopenia and mild soft tissue edema.
[2017-02-16] MEDS: Insulin Reg-MEDIUM-Coverage SC SCH ×4 (09:54→22:12)
[2017-02-16] MEDS: Potassium Chloride 20 mEq ER Tab PO SCH (09:58)
[2017-02-16] MEDS: Levothyroxine 25 MCG TAB PO SCH (09:59)
[2017-02-16] MEDS: Vancomycin 1gm in NS 250ml 1 GM/250 ML BAG IVPB SCH ×2 (09:59→21:31)
--- NOTE | 2017-02-16 10:27 | CP.PCM.PN ---
Subjective - Date & Time of Evaluation Date of Evaluation: 02/16/17 Time of Evaluation: 10:26 - Subjective Subjective: 81 y/o female seen at bedside with attending Dr. Elias for bilateral big toe pain. Pt states she has not had any pain in the toes since admission, and agrees that it is likely due to pressure from the shoes she wears, as well as long periods of walking. Pt denies any F/C/N/V/CP/SOb at this time. Objective - Vital Signs/Intake and Output Vital Signs (last 24 hours): Temp Pulse Resp BP Pulse Ox 98.4 F 73 19 126/57 L 97 02/16/17 06:00 02/16/17 06:00 02/16/17 06:00 02/16/17 09:59 02/16/17 06:00 Intake and Output: 02/16/17 02/16/17 06:59 18:59 Intake Total 920 Balance 920 - Medications Medications: Current Medications Atorvastatin Calcium (Lipitor) 10 mg PO DIN [facility] Last Admin: 02/15/17 21:48 Dose: 10 mg Clopidogrel Bisulfate (Plavix) 75 mg PO DAILY [facility] Last Admin: 02/16/17 09:58 Dose: 75 mg Furosemide (Lasix) 40 mg IVP DAILY [facility] Last Admin: 02/16/17 09:59 Dose: 40 mg Gabapentin (Neurontin) 300 mg PO TID [facility] PRN Reason: Protocol Last Admin: 02/16/17 09:59 Dose: 300 mg Glimepiride (Amaryl) 4 mg PO BID [facility] Last Admin: 02/16/17 09:59 Dose: 4 mg Sodium Chloride (Sodium Chloride 0.45%) 1,000 mls @ 40 mls/hr IV .Q24H [facility] Last Admin: 02/15/17 23:02 Dose: Not Given Meropenem 1 gm/ Dextrose 100 mls @ 100 mls/hr IVPB Q8 [facility] PRN Reason: Protocol Stop: 02/21/17 23:46 Last Admin: 02/16/17 05:30 Dose: 100 mls/hr Vancomycin HCl (Vancomycin 1gm) 1 gm in 250 mls @ 167 mls/hr IVPB Q12H [facility] PRN Reason: Protocol Last Admin: 02/16/17 09:59 Dose: 167 mls/hr Pantoprazole Sodium (Protonix 40mg Ivpb) 40 mg in 100 mls @ 200 mls/hr IVPB 0600 [facility] Insulin Human Regular (Humulin R Med) 0 units SC ACHS [facility] PRN Reason: Protocol Last Admin: 02/16/17 09:54 Dose: Not Given Ketorolac Tromethamine (Toradol) 30 mg IVP Q6 PRN PRN Reason: Headache Last Admin: 02/15/17 16:06 Dose: 30 mg Levothyroxine Sodium (Synthroid) 25 mcg PO DAILY [facility] Last Admin: 02/16/17 09:59 Dose: 25 mcg Loperamide HCl (Imodium) 2 mg PO QID PRN PRN Reason: Diarrhea Last Admin: 02/15/17 21:46 Dose: 2 mg Metformin HCl (Glucophage) 1,000 mg PO BID [facility] Last Admin: 02/16/17 09:59 Dose: 1,000 mg Potassium Chloride (K-Dur 20 Meq Er Tab) 20 meq PO BRK [facility] Last Admin: 02/16/17 09:58 Dose: 20 meq - Labs Labs: 02/16/17 06:00 02/16/17 06:00 PT 12.7 SECONDS (9.4-12.5) H 02/14/17 18:00 INR 1.16 (0.93-1.08) H 02/14/17 18:00 APTT 30.9 Seconds (25.1-36.5) 02/14/17 18:00 - Constitutional Appears: Well, Non-toxic, No Acute Distress - Extremities Exam Additional comments: Lower extremity focused examination: Vasc: DP/PT pulses are not palpable due to +3 pitting edema extending from tibial tuberosity distally to digits B/L; temp gradient warm to cool B/L; CFT delayed to all digits but present Derm: No open lesions, no erythema, no interdigital maceration, no clinical suspicion of infection Neuro: Protective sensation grossly intact B/L Ortho: No tenderness elicited on palpation of bilateral hallux. No signs of ingrown toenail or increased pressure to toes. - Neurological Exam Neurological Exam: Alert, Awake, Oriented x3 - Psychiatric Exam Psychiatric exam: Normal Affect, Normal Mood Assessment and Plan - Assessment and Plan (Free Text) Assessment: 81 y/o diabetic female seen for bilateral big toe pain secondary to shoegear and osteoarthritis Plan: 81 y/o female seen at bedside with attending Dr. Elias Chart, labs and vitals reviewed- afebrile, WBC 8.3 X-rays of bilateral feet reveal osteopenic and osteoarthritic changes. No acute fractures or dislocations noted, no subungual exostoses present Recommended patient to continue with compression stockings at home Explained to patient the importance of ambulation in shoes with a wider toe box that does not put pressure on her big toes Recommend patient obtain diabetic shoes to accommodate the toes and provide more room Podiatry to sign off at this time Thank you for this consult
--- NOTE | 2017-02-16 10:28 | PN ---
DATE: SUBJECTIVE: Ms. Meyer is resting comfortably in bed. She is currently getting a chest x-ray this morning ordered by the specialist. She has slept well and eating well. No chest pain, no shortness of breath and in good spirits. She understand tomorrow she is going to [facility] for physical therapy and continued the antibiotics. MEDICATIONS: She is currently on Amaryl, Glucophage, insulin coverage, Imodium, Lasix, Lipitor, Merrem IV, Neurontin, Plavix, IV fluids, Synthroid, Toradol, and vancomycin. PHYSICAL EXAMINATION VITAL SIGNS: She has a 98.4 temp, 70 pulse, 142/66 blood pressure, 19 respiratory rate, and 97% of O2 saturation on 2 liters nasal cannula. HEENT: Head is atraumatic and normocephalic. HEART: Regular rate. LUNGS: Decrease breath sounds, but clear. ABDOMEN: Morbidly obese and soft. She is to be little bit distended today. She has 10 bowel movements yesterday and she might be having some bloating from gas. EXTREMITIES: No edema. LABORATORY DATA: She has a 8.3 white count, 9.4 hemoglobin, 28.8 hematocrit, and 153 platelets. She has a 136 sodium and potassium is low at 2.7, I am going to give her potassium today as replacement. BUN is 14 and creatinine is 0.9. GFR is greater than is 60. Sugar is 96, calcium is 8.6, magnesium is 1.6, and total bilirubin is 0.6. AST is 24, ALT is 26, alkaline phosphatase is 51, and total protein is 6.3. We will also replace the magnesium. ASSESSMENT AND PLAN: She has been seen by Infectious Disease, Neurology, and Podiatry, I will going to replace potassium today. Abdomen x-ray, chest x-ray and foot x-ray are pending. She has multiple issues. Urinary tract infection, old cerebrovascular accident, diabetes, low potassium, systemic inflammatory response syndrome, chronic congestive heart failure, and now she has got abdominal bloating. Dante March DO
[2017-02-16 11:20] LABS: HEMATOCRIT 29.9 % (36.0-48.0); MEAN CORPUSCULAR HEMOGLOBIN 30.5 pg (25.0-35.0); MEAN CORPUSCULAR HGB CONC 33.1 g/dl (31.0-37.0); MEAN PLATELET VOLUME 9.1 fl (7.0-11.0); RED CELL DISTRIBUTION WIDTH 15.1 % (11.5-14.5); WHITE BLOOD COUNT 9.5 10^3/ul (4.5-11.0)
[2017-02-16 12:01] LABS: ALB/GLOB RATIO 1.3 (1.1-1.8); ALKALINE PHOSPHATASE 53 U/L (38-126); ALT/SGPT 32 U/L (7-56); AST/SGOT 28 U/L (14-36); BILIRUBIN,TOTAL 0.6 mg/dL (0.2-1.3); BLOOD UREA NITROGEN 15 mg/dL (7-21); CALCIUM 8.6 mg/dL (8.4-10.5); CARBON DIOXIDE 25 mmol/L (21-33); CHLORIDE 97 mmol/L (98-107); GFR AFRICAN-AMERICAN > 60; GLUCOSE,RANDOM 208 mg/dL (70-110); POTASSIUM 3.4 mmol/L (3.6-5.0); SODIUM 134 mmol/L (132-148); TOTAL PROTEIN 6.6 g/dL (5.8-8.3)
--- NOTE | 2017-02-16 15:26 | CT ---
PROCEDURE: CT Abdomen and Pelvis without intravenous contrast HISTORY: elevated lactate COMPARISON: Comparison is made to the previous study dated 10/02/2016 TECHNIQUE: Axial and reformatted coronal and sagittal CT images of the abdomen and pelvis were obtained without IV or oral contrast administration.. Contrast Dose: 0 Radiation dose: Total exam DLP = 1098.03 mGy-cm. This CT exam was performed using one or more of the following dose reduction techniques: Automated exposure control, adjustment of the mA and/or kV according to patient size, and/or use of iterative reconstruction technique. FINDINGS: LOWER THORAX: No evidence of acute pathology at the lung bases. The heart is mildly enlarged. LIVER: Unremarkable. No gross lesion or ductal dilatation. GALLBLADDER AND BILE DUCTS: Status post cholecystectomy. PANCREAS: Diffuse fatty replacement of the pancreas is again noted. The main pancreatic duct is not dilated. SPLEEN: Unremarkable. ADRENALS: Unremarkable. No mass. KIDNEYS AND URETERS: Unremarkable. No hydronephrosis. No solid mass. VASCULATURE: Unremarkable. No aortic aneurysm. BOWEL: Unremarkable. No obstruction. No gross mural thickening. Scattered colonic diverticulosis are again seen without evidence of diverticulitis. APPENDIX: No evidence of appendicitis. PERITONEUM: Unremarkable. No free fluid. No free air. LYMPH NODES: Unremarkable. No enlarged lymph nodes. BLADDER: The urinary bladder is mildly to moderately distended. REPRODUCTIVE: Unremarkable. BONES: No acute fracture. OTHER FINDINGS: Postsurgical changes are noted at the anterior abdominal wall. IMPRESSION: No evidence of acute pathology in the abdomen and pelvis. No evidence of significant interval change compared to the previous study.
--- NOTE | 2017-02-16 16:40 | PN ---
DATE: 02/16/2017 NEUROLOGY FOLLOWUP CHIEF COMPLAINT: Change in mental status. SUBJECTIVE: The patient is seen and examined at bedside. The MRI of the brain showed a diffuse acute infarct in the right occipital lobes and old left frontal lobe with old infarct. Currently, no acute events overnight. She does have a left visual field deficit from her right occipital lobe infarct. She has waxing and waning of delirium, but otherwise moving all extremities and following commands. Case discussed with daughter at bedside. 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 PAST SURGICAL HISTORY: Cholecystectomy. ALLERGIES: HYDROMORPHONE AND TRAMADOL. FAMILY HISTORY: Noncontributory. SOCIAL HISTORY: No illicit drug abuse, smoking, and EtOH abuse. PHYSICAL EXAMINATION: VITAL SIGNS: Temperature 97.8, pulse rate of 72, blood pressure of 112/52, respiratory rate of 18, and oxygen saturation 97% on room air. GENERAL: The patient is sitting up in bed, in no acute distress. HEENT: Atraumatic and normocephalic. PERRLA. Extraocular muscles are intact. NECK: Supple. No JVD. No adenopathy noted. LUNGS: Clear to auscultation. No adventitious sounds. HEART: S1 and S2, normal rate and rhythm. No murmurs, rubs, or gallops. ABDOMEN: Soft, nontender, and nondistended. Bowel sounds are present. EXTREMITIES: No clubbing. No cyanosis. Peripheral pulses 2+ felt bilaterally. NEUROLOGIC: The patient is alert, oriented to person and place, month and year. Recall after 5 minutes is 0 out of 3. Poor attention and slow thought process. Cranial nerves II through XII are intact. Speech is fluent without any errors. She has a left visual field deficit from her acute right occipital lobe infarct. Sensory exam: Decreased light touch, pinprick up to the calves bilaterally, decreased vibration at the toes, DTRs are 2+ throughout and 1 at the knees and ankles. Coordination: [id number] intact. Gait is deferred for now. LABORATORY DATA: Labs are reviewed. Today's blood glucose 227. ASSESSMENT: This is an 81-year-old woman with history of type 2 diabetes mellitus, hypertension, gastroesophageal reflux disease, osteoarthritis, history of an infract in left anterior frontal lobe with no residual deafness presented with confusion and fevers, found to have urinary tract infection and also found to have an acute infarct on the right occipital lobe secondary to diffuse atherosclerotic disease. At this time recommend; 1. Continue to treat with antibiotics for sepsis and UTI. 2. Aspirin 81 and Plavix 75 and Lipitor 40 for stroke prevention given her new infarct on right occipital lobe. 3. She is subacute rehab for reconditioning and deconditioned state. 4. Keep blood pressures between 130 to 140. 5. Keep blood sugars between 140 to 180. 6. Gabapentin 300 mg p.o. t.i.d. for neuropathic pain and continue with current present medical management. Chai Nguyen MD
--- NOTE | 2017-02-16 18:18 | CP.PCM.PN ---
Subjective - Date & Time of Evaluation Date of Evaluation: 02/16/17 Time of Evaluation: 08:15 - Subjective Subjective: Patient was having some loose bowel movement but became constipated this morning , no fevers overnight, mild abdominal pain, no vomiting. No fevers overnight. Objective - Vital Signs/Intake and Output Vital Signs (last 24 hours): Temp Pulse Resp BP Pulse Ox 98.2 F 76 19 103/49 L 96 02/16/17 00:01 02/16/17 02:00 02/16/17 00:01 02/16/17 00:01 02/16/17 00:01 Intake and Output: 02/15/17 02/16/17 18:59 06:59 Intake Total 660 Output Total 500 Balance 160 - Medications Medications: Current Medications Atorvastatin Calcium (Lipitor) 10 mg PO DIN [facility] Last Admin: 02/15/17 21:48 Dose: 10 mg Clopidogrel Bisulfate (Plavix) 75 mg PO DAILY [facility] Last Admin: 02/15/17 10:59 Dose: 75 mg Furosemide (Lasix) 40 mg IVP DAILY [facility] Last Admin: 02/15/17 10:59 Dose: 40 mg Gabapentin (Neurontin) 300 mg PO TID [facility] PRN Reason: Protocol Last Admin: 02/15/17 18:38 Dose: 300 mg Glimepiride (Amaryl) 4 mg PO BID [facility] Last Admin: 02/15/17 18:38 Dose: 4 mg Sodium Chloride (Sodium Chloride 0.45%) 1,000 mls @ 40 mls/hr IV .Q24H [facility] Last Admin: 02/15/17 23:02 Dose: Not Given Meropenem 1 gm/ Dextrose 100 mls @ 100 mls/hr IVPB Q8 [facility] PRN Reason: Protocol Stop: 02/21/17 23:46 Last Admin: 02/16/17 05:30 Dose: 100 mls/hr Vancomycin HCl (Vancomycin 1gm) 1 gm in 250 mls @ 167 mls/hr IVPB Q12H [facility] PRN Reason: Protocol Last Admin: 02/15/17 22:57 Dose: 167 mls/hr Insulin Human Regular (Humulin R Med) 0 units SC ACHS [facility] PRN Reason: Protocol Last Admin: 02/15/17 23:03 Dose: Not Given Ketorolac Tromethamine (Toradol) 30 mg IVP Q6 [facility]N PRN Reason: Headache Last Admin: 02/15/17 16:06 Dose: 30 mg Levothyroxine Sodium (Synthroid) 25 mcg PO DAILY [facility] Last Admin: 02/15/17 10:59 Dose: 25 mcg Loperamide HCl (Imodium) 2 mg PO QID [facility]N PRN Reason: Diarrhea Last Admin: 02/15/17 21:46 Dose: 2 mg Metformin HCl (Glucophage) 1,000 mg PO BID [facility] Last Admin: 02/15/17 18:39 Dose: 1,000 mg - Labs Labs: 02/15/17 06:00 02/15/17 06:00 PT 12.7 SECONDS (9.4-12.5) H 02/14/17 18:00 INR 1.16 (0.93-1.08) H 02/14/17 18:00 APTT 30.9 Seconds (25.1-36.5) 02/14/17 18:00 - Constitutional Appears: Non-toxic - Head Exam Head Exam: NORMAL INSPECTION - ENT Exam ENT Exam: Mucous Membranes Moist - Neck Exam Neck Exam: absent: Meningismus - Respiratory Exam Respiratory Exam: Decreased Breath Sounds - Cardiovascular Exam Cardiovascular Exam: +S1, +S2 - GI/Abdominal Exam GI & Abdominal Exam: Soft. absent: Tenderness Assessment and Plan - Assessment and Plan (Free Text) Plan: Assessment sepsis due to UTI with gram negative bacilli DM chronic CHF hypothyroidism history of CVA, R/O new onset CVA HTN S/P appendectomy S/P cholecystectomy cataracts morbid obesity with BMI 41 Plan continue Merrem and will d/c Vancomycin pending identification and sensitivities of the gram negative bacilli in the urine cx Neuro following for confusion - follow up brain MRI results reviewed CT A/P which did not show acute pathology stool for C. diff. is negative will continue to monitor clinically
[2017-02-16] MEDS: Sodium Chloride 0.45% 1,000 ML IV SCH (21:33)
[2017-02-17] MEDS: Meropenem 1 GM in Dextrose 5% In Water 100 ML IVPB SCH (05:34)
[2017-02-17] MEDS ORDERED: Pantoprazole 40mg/100ml IVPB 40 MG/100 ML BAG IVPB SCH (06:00)
[2017-02-17 06:25] LABS: HEMATOCRIT 28.2 % (36.0-48.0); MEAN CELL VOLUME 92.2 fl (80.0-105.0); MEAN CORPUSCULAR HEMOGLOBIN 30.4 pg (25.0-35.0); MEAN PLATELET VOLUME 9.4 fl (7.0-11.0); RED CELL DISTRIBUTION WIDTH 14.9 % (11.5-14.5); WHITE BLOOD COUNT 8.8 10^3/ul (4.5-11.0)
[2017-02-17 06:26] VITALS: O2SAT 98
[2017-02-17 06:43] LABS: ALB/GLOB RATIO 1.1 (1.1-1.8); ALKALINE PHOSPHATASE 49 U/L (38-126); ALT/SGPT 21 U/L (7-56); AST/SGOT 24 U/L (14-36); BILIRUBIN,TOTAL 0.5 mg/dL (0.2-1.3); BLOOD UREA NITROGEN 16 mg/dL (7-21); CALCIUM 8.8 mg/dL (8.4-10.5); CARBON DIOXIDE 28 mmol/L (21-33); CHLORIDE 103 mmol/L (98-107); GFR AFRICAN-AMERICAN > 60; GLUCOSE,RANDOM 103 mg/dL (70-110); POTASSIUM 3.1 mmol/L (3.6-5.0); SODIUM 139 mmol/L (132-148); TOTAL PROTEIN 6.2 g/dL (5.8-8.3)
[2017-02-17] MEDS: Insulin Reg-MEDIUM-Coverage SC SCH ×2 (07:56→12:08)
[2017-02-17] MEDS: Vancomycin 1gm in NS 250ml 1 GM/250 ML BAG IVPB SCH (09:53)
[2017-02-17] MEDS: Levothyroxine 25 MCG TAB PO SCH (09:54)
[2017-02-17] MEDS: Potassium Chloride 20 mEq ER Tab PO SCH (09:54)
--- NOTE | 2017-02-17 11:34 | DS ---
HOSPITAL COURSE: She is going to be discharged to [facility] today. She is comfortable, the daughter is present. She is in good spirits. She is smiling. She is happy. She is eating. Medications are working and she is improving. PHYSICAL EXAMINATION: VITAL SIGNS: She has a 99 temp, 82 pulse, 115/51 blood pressure, 18 respiratory rate, and 98% O2 sat on room air. HEENT: Head is atraumatic and normocephalic. Throat is moist. NECK: Supple. HEART: Regular rate. LUNGS: Clear to auscultation. ABDOMEN: Soft and obese. EXTREMITIES: No edema. MEDICATIONS: She is going to go there on Amaryl, Glucophage, insulin coverage, Imodium as needed, potassium twice a day, Lasix 40 twice a day, Lipitor, Merrem for 7 more days IV, Neurontin, Plavix, potassium twice a day, and Protonix daily. She is currently on IV fluids for 7 more days, levothyroxine, and vancomycin for 7 more days IV. LABORATORY DATA: She had a white count of 8.8, hemoglobin of 9.3, hematocrit of 28.2, and platelets of 158. She had a 139 sodium and potassium 3.1. She is going to need K rider and I bumped up to p.o. potassium to twice a day, I will check with [facility]. BUN is 16 and creatinine is 1. GFR is 53. Sugar is 103, calcium is 8.8, total bili is 0.5, AST is 24, ALT is 21, alkaline phosphatase 49, and total protein 6.2. ASSESSMENT AND PLAN: She had urinary tract infection. She was seen by Infectious Disease, Neurology, and Podiatry. She had CAT scan of abdomen and pelvis, which was good. Also she had a foot x-ray, which showed no evidence of anything bad. Continue with aggressive treatment and care at [facility] with physical therapy, I will be seeing her there on Saturday. Discussed with the nurse. We will keep the IV in, so she is going to go with the IV fluids and IV antibiotics. Dante March DO
[2017-02-17 13:04] VITALS: BP 138/52; PULSE 79; RESP 20; TEMP 98.1
--- NOTE | 2017-02-17 13:52 | CP.PCM.PN ---
Subjective - Date & Time of Evaluation Date of Evaluation: 02/17/17 Time of Evaluation: 10:00 - Subjective Subjective: Feeling better, no abdominal pain, no fevers, not in distress. Objective - Vital Signs/Intake and Output Vital Signs (last 24 hours): Temp Pulse Resp BP Pulse Ox 98.1 F 79 20 138/52 L 98 02/17/17 12:00 02/17/17 12:00 02/17/17 12:00 02/17/17 12:00 02/17/17 06:00 Intake and Output: 02/17/17 02/17/17 06:59 18:59 Intake Total 1090 Balance 1090 - Labs Labs: 02/17/17 05:30 02/17/17 05:30 PT 12.7 SECONDS (9.4-12.5) H 02/14/17 18:00 INR 1.16 (0.93-1.08) H 02/14/17 18:00 APTT 30.9 Seconds (25.1-36.5) 02/14/17 18:00 - Constitutional Appears: Non-toxic - Head Exam Head Exam: NORMAL INSPECTION - ENT Exam ENT Exam: Mucous Membranes Moist - Neck Exam Neck Exam: absent: Meningismus - Respiratory Exam Respiratory Exam: Decreased Breath Sounds - Cardiovascular Exam Cardiovascular Exam: +S1, +S2 - GI/Abdominal Exam GI & Abdominal Exam: Soft. absent: Tenderness Assessment and Plan - Assessment and Plan (Free Text) Plan: Assessment sepsis due to UTI with Klebsiella right occipital lobe acute infarction DM chronic CHF hypothyroidism history of CVA HTN S/P appendectomy S/P cholecystectomy cataracts morbid obesity with BMI 41 Plan continue Merrem day 3 - would complete 7-10 days of antibiotics (can be switched to Rocephin to complete therapy) reviewed CT A/P which did not show acute pathology stool for C. diff. is negative would suggest monitoring of lactic acid in the blood
[2017-02-17] MEDS ORDERED: Potassium Chloride 20 mEq ER Tab PO SCH (18:00)
[2017-02-18] MEDS ORDERED: Pantoprazole 40 mg EC Tab PO SCH (06:00)
--- NOTE | 2017-02-18 08:07 | CON ---
ADDENDUM TO NEUROLOGY CONSULT DATE: 02/15/2017 CHIEF COMPLAINT: Change in mental status. The patient had an MRI of the brain which showed a restricted diffusion in the right occipital lobe with suggestion of an acute infarction, which is consistent with her left visual field deficit. She also on her MRI of brain has re-demonstration of her old encephalomalacia at the left frontal lobe which is consistent with old infarct and right cerebellum. So overall, she did have a new infarct in the right occipital lobe, likely secondary to diffuse atherosclerotic disease given her uncontrolled diabetes and A1c of 7.8 indicating poorly controlled diabetic process. At the time, I will recommend; 1. In addition to Plavix, consider aspirin 81 mg. 2. Would recommend a loop recorder to evaluate for any atrial fibrillation or any arrhythmia and we will recommend a Cardiology consult if PMD is okay. 3. We will recommend PT/OT and subacute rehab for this patient for her underlying deconditioned state given that she has diabetic peripheral neuropathy, spinal stenosis and new acute right occipital lobe infarct with left visual field deficit. She is clinically stable from my standpoint. At this time, no seizure-like activity on examination and recommend to keep her blood pressure systolic between 130 to 140 max and consider adding aspirin in addition to Plavix for more antiplatelet in addition to up her Lipitor to 80 mg p.o. at bedtime for stroke prevention. Continue with Neurontin 300 mg p.o. t.i.d. for neuropathic relief and diabetic diet. Thank you for this consult. Chai Nguyen MD
--- NOTE | 2017-02-18 09:13 | CP.PCM.PCO ---
Physician Communication Note - Physician Communication Note Physician Communication Note: this feature writer was on vacation, pt will be seen today
--- NOTE | 2017-02-18 13:06 | CP.PCM.PCO ---
Physician Communication Note - Physician Communication Note Physician Communication Note: pt was d/c before this development writer evaluation
== END 2017-02-17 13:09 | DRG 872 ==
LOC: ED 17:07 → ERH 19:12 → 2RNO 22:35
PROVIDERS: ADMIT Family Medicine; ATTEND Family Medicine
DX: A41.9 Sepsis, unspecified organism (principal); N39.0 Urinary tract infection, site not specified; E11.42 Type 2 diabetes mellitus with diabetic polyneuropathy; I11.0 Hypertensive heart disease with heart failure; I50.9 Heart failure, unspecified; E11.65 Type 2 diabetes mellitus with hyperglycemia; Z68.41 Body mass index [BMI] 40.0-44.9, adult; E03.9 Hypothyroidism, unspecified; H40.9 Unspecified glaucoma; K21.9 Gastro-esophageal reflux disease without esophagitis; M48.061 Spinal stenosis, lumbar region without neurogenic claudication; E66.9 Obesity, unspecified; E66.01 Morbid (severe) obesity due to excess calories; E78.00 Pure hypercholesterolemia, unspecified; M48.00 Spinal stenosis, site unspecified; B96.1 Klebsiella pneumoniae [K. pneumoniae] as the cause of diseases classified elsewhere; H53.40 Unspecified visual field defects; Z86.73 Personal history of transient ischemic attack (TIA), and cerebral infarction without residual deficits; Z79.02 Long term (current) use of antithrombotics/antiplatelets; Z79.899 Other long term (current) drug therapy; Z90.49 Acquired absence of other specified parts of digestive tract

== ENCOUNTER 2017-03-18 16:05 | Observation (INO) | payer MEDICARE, OTHER ==
--- NOTE | 2017-03-18 16:24 | ED PDOC ---
Arrival/HPI - General Time Seen by Provider: 03/18/17 16:07 Historian: Patient - History of Present Illness Narrative History of Present Illness (Text): 03/18/17 16:22 An 81 year old female, whose past medical history includes previous stroke, no residual deficits, hypertension, diabetes and CHF, was brought in by EMS to the emergency department complaining of right sided unsteady gait. Patient reports walking "towards the right". Patient called PMD and was sent to the emergency department for further evaluation. Notes symptoms started 30 minutes prior to arrival. Reports had a previous stroke last month, no residual deficits from stroke. Patient denies any other complaints at this time. Time/Duration: 1/2 hour Symptom Onset: Sudden Symptom Course: Unchanged Activities at Onset: Rest Context: Home Past Medical History - Provider Review Nursing Documentation Reviewed: Yes - Past History Past History: Non-Contributing - Infectious Disease Hx of Infectious Diseases: None - Tetanus Immunization Tetanus Immunization: Unknown - Reproductive Currently : No - Past Medical History Past Medical History: No Previous - Cardiac Hx Cardiac Disorders: Yes Hx Congestive Heart Failure: Yes Hx Hypertension: Yes - Pulmonary Hx Respiratory Disorders: Yes Hx Bronchitis: Yes - Neurological Hx Neurological Disorder: Yes HX Cerebrovascular Accident: Yes (no deficits) Hx Transient Ischemic Attacks (TIA): Yes - HEENT Hx HEENT Disorder: Yes (uses glasses) Hx Cataracts: Yes (sx) Hx Glaucoma: Yes - Renal Hx Renal Disorder: No - Endocrine/Metabolic Hx Endocrine Disorders: Yes Hx Diabetes Mellitus Type 2: Yes Hx Hypothyroidism: Yes - Hematological/Oncological Hx Blood Transfusions: No - Integumentary Hx Dermatological Disorder: No - Musculoskeletal/Rheumatological Hx Falls: No - Gastrointestinal Hx Gastrointestinal Disorders: Yes (IBS) - Genitourinary/Gynecological Hx Genitourinary Disorders: Yes (frequent urination) - Psychiatric Hx Emotional Abuse: No Hx Physical Abuse: No Hx Substance Use: No - Past Surgical History Past Surgical History: Unable to Obtain - Surgical History Hx Appendectomy: Yes Hx Cholecystectomy: Yes - Anesthesia Hx Anesthesia: Yes Hx Anesthesia Reactions: No Hx Malignant Hyperthermia: No - Suicidal Assessment Feels Threatened In Home Enviroment: No Family/Social History - Physician Review Nursing Documentation Reviewed: Yes Family/Social History: No Known Family HX Smoking Status: Never Smoked Hx Alcohol Use: No Hx Substance Use: No Hx Substance Use Treatment: No Allergies/Home Meds Allergies/Adverse Reactions: Allergies hydromorphone HCl [From Dilaudid] Allergy (Severe, Verified 02/14/17 17:16) HALLUCINATIONS tramadol Allergy (Severe, Verified 02/14/17 17:16) RASH Home Medications: Home Meds Medication Instructions Recorded Confirmed Clopidogrel [Plavix] 75 mg PO DAILY 10/11/15 03/18/17 Furosemide [Lasix] 40 mg PO TID 10/11/15 03/18/17 metFORMIN [glucOPHAGE] 1,000 mg PO BID 10/11/15 03/18/17 Levothyroxine [Synthroid] 25 mcg PO DAILY 05/29/16 03/18/17 Cyanocobalamin [Vitamin B12 1000 1,000 mcg PO DAILY 11/30/16 03/18/17 mcg Tab] Glimepiride [amaRYL] 4 mg PO BID 11/30/16 03/18/17 Hydrocortisone [Procto-Med Hc] 30 gm RC BID 11/30/16 03/18/17 [id number] Ethyl Esters [OMEGA 3] 1 tab PO BID 11/30/16 03/18/17 Norethindrone-Ethinyl Estrad 0 each PO DAILY 03/18/17 03/18/17 [Z[place] 0.4 mg-35 Mcg Tablet] Potassium Chloride [K-Dur 20] 20 meq PO DAILY 03/18/17 03/18/17 Review of Systems - Physician Review All systems were reviewed & negative as marked: Yes - Review of Systems Constitutional: absent: Fevers Neurological: Gait Changes (right sided unsteady gait) Physical Exam Vital Signs Reviewed: Yes Vital Signs Temp Pulse Resp BP Pulse Ox 03/18/17 19:05 98.2 F 89 16 127/75 100 03/18/17 19:00 98.5 F 85 15 132/65 100 03/18/17 18:30 83 18 144/56 L 100 03/18/17 16:32 98.0 F 96 H 18 124/63 100 Appearance: Positive for: Well-Appearing, Non-Toxic, Comfortable Pain Distress: None Mental Status: Positive for: Alert and Oriented X 3 - Systems Exam Head: Present: Atraumatic, Normocephalic Pupils: Present: PERRL Extroacular Muscles: Present: EOMI Conjunctiva: Present: Normal Mouth: Present: Moist Mucous Membranes Neck: Present: Normal Range of Motion Respiratory/Chest: Present: Clear to Auscultation, Good Air Exchange. No: Respiratory Distress, Accessory Muscle Use Cardiovascular: Present: Regular Rate and Rhythm, Normal S1, S2. No: Murmurs Abdomen: Present: Normal Bowel Sounds. No: Tenderness, Distention, Peritoneal Signs Back: Present: Normal Inspection Upper Extremity: Present: Normal Inspection. No: Cyanosis, Edema Lower Extremity: Present: Normal Inspection. No: Edema Neurological: Present: GCS=15, CN II-XII Intact, Speech Normal Skin: Present: Warm, Dry, Normal Color. No: Rashes Psychiatric: Present: Alert, Oriented x 3, Normal Insight, Normal Concentration Medical Decision Making ED Course and Treatment: 03/18/17 16:21 Impression: An 81 year old female with right sided unsteady gait. Plan: -- EKG -- CT head -- chest xray -- labs -- Urinalysis -- Reassess and disposition Prior Visits: Notes and results from previous visits were reviewed. Patient was last seen in the emergency department on 02/14/17 for evaluation of confusion and right sided headache. Progress Notes: EKG: Ordered, reviewed, and independently interpreted the EKG. Rate : 89 BPM Rhythm : NSR Interpretation : sinus rhythm, 1st degree AV block 03/18/17 16:34 CT HEAD WITHOUT CONTRAST Creator : Dante Espinoza MD FINDINGS: HEMORRHAGE: No intracranial hemorrhage. BRAIN: No mass effect or edema. Evolving subacute-chronic right occipital infarct. Old right frontoparietal infarct. Underlying senescent change. In addition cortical atrophy, cerebellar atrophy is mild, approximately symmetrical and unchanged. No evidence of brainstem infarction. VENTRICLES: Unremarkable. No hydrocephalus. CALVARIUM: Unremarkable. PARANASAL SINUSES: Chronic left maxillary sinusitis. MASTOID AIR CELLS: Unremarkable as visualized. No inflammatory changes. IMPRESSION: No acute intracranial hemorrhage, no evidence of new infarct. Code stroke protocol: Study completed 16:17 Radiologist notified 16:17. However this study was not available for interpretation until 16:23 Results conveyed verbally at 16:27 Interpretation finalized and available for review 16:29 03/18/17 17:29 chest xray Creator : Dante Espinoza MD LUNGS: No active pulmonary disease. PLEURA: No significant pleural effusion identified, no pneumothorax apparent. CARDIOVASCULAR: No radiographic findings to suggest acute or significant cardiovascular disease. OSSEOUS STRUCTURES: No significant abnormalities. VISUALIZED UPPER ABDOMEN: Normal. IMPRESSION: No active disease. No significant interval change compared to the prior examination(s). - Lab Interpretations Lab Results: 03/18/17 16:35 03/18/17 16:35 Lab Results 03/18/17 16:35: Blood Type O POSITIVE, Antibody Screen Negative, BBK History Checked Patient has bt 03/18/17 16:35: Hemoglobin A1c 7.3 H 03/18/17 16:35: Sodium 137, Potassium 3.9, Chloride 104, Carbon Dioxide 20 L, Anion Gap 17, BUN 31 H, Creatinine 1.2, Est GFR ( Amer) 52, Est GFR (Non- Af Amer) 43, Random Glucose 203 H, Calcium 10.0, Total Bilirubin 0.3, AST 24, ALT 26, Alkaline Phosphatase 88, Lactate Dehydrogenase 334, Total Creatine Kinase 24 L, Troponin I 0.02, Total Protein 7.5, Albumin 4.0, Globulin 3.6, Albumin/Globulin Ratio 1.1, Triglycerides 480 H, Cholesterol 152, LDL Cholesterol Direct 53, HDL Cholesterol 32 03/18/17 16:35: PT 12.1, INR 1.11 H, APTT 30.8 03/18/17 16:35: WBC 8.5, RBC 3.47 L, Hgb 10.5 L, Hct 31.4 L, MCV 90.5, MCH 30.3 , MCHC 33.4, RDW 15.1 H, Plt Count 190, MPV 9.4, Gran % 75.6 H, Lymph % (Auto) 13.5 L, [place] % (Auto) 5.9, Eos % (Auto) 4.6, Baso % (Auto) 0.4, Gran # 6.39, Lymph # 1.1 L, [place] # 0.5, Eos # 0.4, Baso # 0.03 I have reviewed the lab results: Yes - RAD Interpretation Radiology Orders: 03/18/17 16:11 HEAD W/O (CODE STROKE) [CT] Stat CHEST PORTABLE [RAD] Stat - EKG Interpretation Interpreted by ED Physician: Yes Type: 12 lead EKG - Medication Orders Current Medication Orders: Discontinued Medications Aspirin (Aspirin) 325 mg PO STAT STA Stop: 03/18/17 17:05 Last Admin: 03/18/17 17:15 Dose: 325 mg Clopidogrel Bisulfate (Plavix) 75 mg PO DAILY [facility] Last Admin: 03/19/17 09:35 Dose: 75 mg Fenofibrate (Tricor) 145 mg PO DAILY [facility] Last Admin: 03/19/17 09:35 Dose: 145 mg Furosemide (Lasix) 40 mg PO TID [facility] Last Admin: 03/19/17 09:35 Dose: 40 mg MAR Blood Pressure Document 03/19/17 09:35 DEL (Rec: 03/19/17 09:35 DEL [id number]) Blood Pressure Blood Pressure (100/60-150/90) 130/60 Glimepiride (Amaryl) 4 mg PO BID [facility] Last Admin: 03/19/17 09:34 Dose: 4 mg Sodium Chloride (Sodium Chloride 0.45%) 1,000 mls @ 30 mls/hr IV .Q24H [facility] Last Admin: 03/18/17 18:40 Dose: 30 mls/hr eMAR Start Stop Document 03/18/17 18:40 AD (Rec: 03/18/17 19:12 AD [id number]) Intravenous Solution Start Date 03/18/17 Start Time 19:12 Insulin Human Regular (Humulin R Med) 0 units SC ACHS [facility] PRN Reason: Protocol Last Admin: 03/19/17 12:51 Dose: 5 units MAR Blood Glucose Document 03/19/17 12:51 DEL (Rec: 03/19/17 12:51 DEL [id number]) Blood Glucose Finger Stick Blood Glucose (70-120) 252 Subcutaneous Administrations Document 03/19/17 12:51 DEL (Rec: 03/19/17 12:51 DEL [id number]) Charges for Administration # of Subcutaneous Administrations 1 Levothyroxine Sodium (Synthroid) 25 mcg PO DAILY [facility] Last Admin: 03/19/17 09:35 Dose: 25 mcg Metformin HCl (Glucophage) 1,000 mg PO BID [facility] Last Admin: 03/19/17 09:34 Dose: 1,000 mg Mupirocin (Bactroban Ointment) 0 gm TOP BID [facility] Last Admin: 03/19/17 09:36 Dose: 1 cre NIHSS Scale ([place]) Time Performed: 16:23 - How Severe is the Stoke Baseline Level of Consciousness: 0=Alert LOC to Questions: 0=Both comments correct LOC to commands: 0=Obeys both correctly Best Gaze: 0=Normal Visual: 0=No visual loss Facial: 0=Normal Motor Arm - Left: 0=No drift Motor Arm - Right: 0=No drift Motor Leg - Left: 0=No drift Motor Leg - Right: 0=No drift Limb Ataxia: 0=Absent Sensory: 0=Normal Best Language: 0=No aphasia Dysarthia: 0=Normal articulation Extinction & Inattention (Neglect): 0=Normal, no object Score: 0 Risk Level: No Stroke Risk rTPA Inclusion/Exclusion - Refusal of Treatment Patient Refused Treatment: No - Inclusion Criteria for Altepase Patient is 18 years or Older: Yes The Clinical Diagnosis of Ischemic Stroke That is Causing a Potentially Disabling Neurological Deficit: No Time of Onset is Well Established to be Less Than 270 Minute Before Treatment Would Begin: Yes Risk/Benefit Discussed With Patient/Family Member Present: No - Warning to TPA With Conditions Additional Condition (For 3-4.5 Hour Window): Prior Stroke and Diabetes - Scribe Statement The provider has reviewed the documentation as recorded by the Lucina Gutierrez Provider Scribe Attestation: All medical record entries made by the Scribe were at my direction and personally dictated by me. I have reviewed the chart and agree that the record accurately reflects my personal performance of the history, physical exam, medical decision making, and the department course for this patient. I have also personally directed, reviewed, and agree with the discharge instructions and disposition. Disposition/Present on Arrival - Present on Arrival Any Indicators Present on Arrival: No History of DVT/PE: No History of Uncontrolled Diabetes: No Urinary Catheter: No History Surgical Site Infection Following: None - Disposition Have Diagnosis and Disposition been Completed?: Yes Diagnosis: Ataxia Disposition: HOSPITALIZED Disposition Time: 07:00 Condition: STABLE
[2017-03-18 16:30] VITALS: BMI 39.4
--- NOTE | 2017-03-18 16:32 | CT ---
PROCEDURE: CT HEAD WITHOUT CONTRAST. HISTORY: Code Stroke COMPARISON: 02/27/2017 CT head without contrast 02/14/2017 CT head without contrast TECHNIQUE: Axial computed tomography images were obtained through the head/brain without intravenous contrast. Radiation dose: Total exam DLP = 726.57 mGy-cm. This CT exam was performed using one or more of the following dose reduction techniques: Automated exposure control, adjustment of the mA and/or kV according to patient size, and/or use of iterative reconstruction technique. FINDINGS: HEMORRHAGE: No intracranial hemorrhage. BRAIN: No mass effect or edema. Evolving subacute-chronic right occipital infarct. Old right frontoparietal infarct. Underlying senescent change. In addition cortical atrophy, cerebellar atrophy is mild, approximately symmetrical and unchanged. No evidence of brainstem infarction. VENTRICLES: Unremarkable. No hydrocephalus. CALVARIUM: Unremarkable. PARANASAL SINUSES: Chronic left maxillary sinusitis. MASTOID AIR CELLS: Unremarkable as visualized. No inflammatory changes. OTHER FINDINGS: None. IMPRESSION: No acute intracranial hemorrhage, no evidence of new infarct. Code stroke protocol: Study completed 16:17 Radiologist notified 16:17. However this study was not available for interpretation until 16:23 Results conveyed verbally at 16:27 Interpretation finalized and available for review 16:29
[2017-03-18 16:46] LABS: BASO # 0.03 K/mm3 (0.0-2.0); BASO % 0.4 % (0.0-3.0); EOS # 0.4 (0.0-0.7); EOS % 4.6 % (1.5-5.0); GRAN # 6.39 (1.4-6.5); GRAN % 75.6 % (50.0-68.0); HEMATOCRIT 31.4 % (36.0-48.0); LYMPH # 1.1 (1.2-3.4); LYMPH % 13.5 % (22.0-35.0); MEAN CELL VOLUME 90.5 fl (80.0-105.0); MEAN CORPUSCULAR HEMOGLOBIN 30.3 pg (25.0-35.0); MEAN CORPUSCULAR HGB CONC 33.4 g/dl (31.0-37.0); MEAN PLATELET VOLUME 9.4 fl (7.0-11.0); MONO # 0.5 (0.1-0.6); MONO % 5.9 % (1.0-6.0); RED CELL DISTRIBUTION WIDTH 15.1 % (11.5-14.5); WHITE BLOOD COUNT 8.5 10^3/ul (4.5-11.0)
[2017-03-18 16:59] LABS: ALB/GLOB RATIO 1.1 (1.1-1.8); BILIRUBIN,TOTAL 0.3 mg/dL (0.2-1.3); POTASSIUM 3.9 mmol/L (3.6-5.0); TOTAL PROTEIN 7.5 g/dL (5.8-8.3)
[2017-03-18 17:17] LABS: TROPONIN I 0.02 ng/mL
[2017-03-18 17:18] LABS: INR 1.11 (0.93-1.08); PARTIAL THROMBOPLASTIN TIME 30.8 Seconds (25.1-36.5)
--- NOTE | 2017-03-18 17:26 | RAD ---
HISTORY: stroke code COMPARISON: 02/14/2017 FINDINGS: LUNGS: No active pulmonary disease. PLEURA: No significant pleural effusion identified, no pneumothorax apparent. CARDIOVASCULAR: No radiographic findings to suggest acute or significant cardiovascular disease. OSSEOUS STRUCTURES: No significant abnormalities. VISUALIZED UPPER ABDOMEN: Normal. OTHER FINDINGS: None. IMPRESSION: No active disease. No significant interval change compared to the prior examination(s).
[2017-03-18] MEDS ORDERED: Sodium Chloride 0.45% 1,000 ML IV SCH (18:30)
[2017-03-18 20:38] LABS: URINE BILIRUBIN NEGATIVE (NEGATIVE); URINE BLOOD NEGATIVE (NEGATIVE); URINE GLUCOSE (UA) 250 mg/dL (NEGATIVE); URINE KETONE NEGATIVE (NEGATIVE); URINE LEUKOCYTE ESTERASE SMALL Leu/uL (NEGATIVE); URINE PROTEIN TRACE mg/dL (<30 mg/dL); URINE UROBILINOGEN 0.2 E.U./dL (<1 E.U./dL)
[2017-03-18 20:44] LABS: URINE APPEARANCE CLEAR (CLEAR)
[2017-03-18] MEDS: Insulin Reg-MEDIUM-Coverage SC SCH (22:14)
--- NOTE | 2017-03-18 23:45 | CARD ---
APPROVED REPORT EKG Measurement Heart [id number] <Conclusion> Sinus rhythm with marked sinus arrhythmia with 1st degree AV block Minimal voltage criteria for LVH, may be normal variant Septal infarct, age undetermined Abnormal ECG
[2017-03-19 00:10] VITALS: RESP 19
--- NOTE | 2017-03-19 04:41 | HP ---
HISTORY OF PRESENT ILLNESS: I know Betsy very well from house calls. Also, she had a recent stroke and was in subacute rehab, she did well and she went home. She comes in with a history of being an 81-year-old female, called my office today and told me when she walks she was leaning to the right and she was not feeling well when she was walking, this is new, it was sudden, and I sent her to the emergency room. She is here for rule out CVA with a code stroke called. She has a big family history. PAST MEDICAL HISTORY: She has cardiac disorders, CHF, hypertension, bronchitis history. She had a CVA with visual deficit. She had TIA. She uses glasses. She has cataracts, glaucoma, diabetes, hypothyroidism, irritable bowel disease, hemorrhoids, frequent urination, appendectomy, and cholecystectomy. FAMILY HISTORY: She has got hypertension and diabetes in the family. SOCIAL HISTORY: Never smoked. No alcohol. No drugs. ALLERGIES: SHE HAS ALLERGIES TO HYDROMORPHONE AND TRAMADOL. MEDICATIONS: She takes Plavix, Lasix, Glucophage, Synthroid, vitamin B12, glimepiride, ProctoFoam cream, [place]-3 fatty acids, Zenchent ,and potassium replacement. REVIEW OF SYSTEMS: No acute vision changes or hearing changes. She has poor vision secondary to the stroke she just recently had. No sore throat. No neck pain. No chest pain. No shortness of breath. No abdominal pain. No nausea, vomiting, constipation, or diarrhea. No leg pain, but states when she walks she is now walking to the right side and unsteady gait. PHYSICAL EXAMINATION: VITAL SIGNS: She has temperature 98, 96 pulse, 18 respiratory rate, 124/63 blood pressure, and 100% O2 sat on room air. GENERAL: She is well appearing, nontoxic, comfortable, positive alert and oriented x3. HEENT: Head is atraumatic and normocephalic. Extraocular muscles are intact. Throat is moist. NECK: Supple. HEART: Regular rate. Normal S1 and S2. LUNGS: Decreased breath sounds, but clear to auscultation. ABDOMEN: Soft and nontender. Positive bowel sounds. Morbidly obese. No guarding. No rebound. No CVA tenderness. EXTREMITIES: A +1/4 pitting edema. She moves all four extremities. NEUROLOGIC: GCS is 15. Cranial nerves II through XII grossly intact. Normal speech. Tongue is midline. She close her eyes tight. She can she can put her arms over her head, equal strength and moves all four extremities. SKIN: Warm and dry. No apparent rashes or ulcers. LYMPHATICS: Thyroid is midline. No palpable lymphadenopathy appreciated. She is alert and oriented x3 at this time, little nervous about being here. LABORATORY DATA: She had multiple tests that were done. She has a 137 sodium, potassium 3.9, BUN creatinine 1.2. I will put her on IV fluids. Sugar is 203, I will put her back on medications plus insulin sliding scale. Calcium is 10, total bilirubin is 0.3. AST is 24, ALT is 26, alkaline phosphatase is 88. Lactate dehydrogenase is 334, total creatine kinase is 24. Troponin I is less than 0.02, total protein is 7.5, albumin is 4, globulin is 3.6. Cholesterol is 152, triglyceride is yulissa-high at 480, and she has been on fish oil. HDL is low at 32, INR is 1.11. White count is 8.5, hemoglobin 10.5, hematocrit 31.4, and platelets are 190. She had tests done. She had a head CT on the stroke protocol, it showed no acute intracranial hemorrhage or evidence of a new infarct, so no new infarcts. There is an old right frontoparietal infarct, nothing new in the brain, which is good so far. She had a chest x-ray that showed no active disease. So, she is here for changes in her walking, leaning to the right, for stroke protocol. We are going to check her labs out very well, have a Neurology consult. IMPRESSION: Cerebrovascular accident or transient ischemic attack. Dante March DO MTDD
[2017-03-19 05:48] VITALS: O2SAT 96
[2017-03-19 06:48] LABS: HEMATOCRIT 28.5 % (36.0-48.0); MEAN CELL VOLUME 90.8 fl (80.0-105.0); MEAN CORPUSCULAR HEMOGLOBIN 29.9 pg (25.0-35.0); MEAN PLATELET VOLUME 9.6 fl (7.0-11.0); RED CELL DISTRIBUTION WIDTH 15.3 % (11.5-14.5); WHITE BLOOD COUNT 6.5 10^3/ul (4.5-11.0)
[2017-03-19 07:06] LABS: ALB/GLOB RATIO 1.2 (1.1-1.8); BILIRUBIN,TOTAL 0.3 mg/dL (0.2-1.3); POTASSIUM 3.7 mmol/L (3.6-5.0); TOTAL PROTEIN 6.8 g/dL (5.8-8.3)
[2017-03-19] MEDS: Insulin Reg-MEDIUM-Coverage SC SCH ×2 (09:36→12:51)
[2017-03-19] MEDS ORDERED: Levothyroxine 25 MCG TAB PO SCH (10:00)
--- NOTE | 2017-03-19 10:14 | CP.PCM.CON ---
<Lynda Haider - Last Filed: 03/19/17 17:07> History of Present Illness - History of Present Illness History of Present Illness: PGY-[address] Nguyen's service 81 year old female with past medical history of previous stroke, with left visual field deficit, hypertension, diabetes and CHF, was brought in to the emergency department complaining of right sided unsteady gait. Patient states that while walking to the bathroom she noticed that she was leaning "towards the right". Patient called PMD and was sent to the emergency department for further evaluation for stroke. Patient denies any similar episodes previously. She reports using a walker at her baseline and states that she only walks short distances, such as to the bathroom, without any assistance. She states that sh e is stable with a walker. She reports had a previous stroke last month, and was in a subacute rehab facility. She reports the only deficit is left sided visual field which is improving. Patient denies fever, chills, chest pain, palpitations, headache, dizziness, sob, or any other complaints at this time. PMH: previous stroke with left visual field deficit, TIA hypertension, diabetes , hypothyriodism and CHF PSH: appendectomy, cholecystectomy family history: colon cancer social history: denies smoking, alcohol use, illicit drug use allergy: hydromorphone and tramadol Review of Systems - Review of Systems All systems: reviewed and no additional remarkable complaints except (as stated in HPI) Past Patient History - Infectious Disease Hx of Infectious Diseases: None - Tetanus Immunizations Tetanus Immunization: Unknown - Past Social History Smoking Status: Never Smoked - CARDIAC Hx Cardiac Disorders: Yes Hx Angina: No Hx Cardia Arrhythmia: No Hx Circulatory Problems: No Hx Congestive Heart Failure: Yes Hx Heart Murmur: No Hx Heart Transplant: No Hx Hypercholesterolemia: Yes Hx Hypertension: Yes Hx Internal Defibrillator: No Hx Mitral Valve Prolapse: No Hx Pacemaker: No Hx Peripheral Edema: No Hx Peripheral Vascular Disease: No - PULMONARY Hx Respiratory Disorders: No Hx Asthma: No Hx Bronchitis: No Hx Chronic Obstructive Pulmonary Disease (COPD): No Hx Emphysema: No Hx Pneumonia: No Hx Respiratory Aspiration: No Hx Respiratory Tract Infection: No Hx Sleep Apnea: No Hx Tuberculosis: No - NEUROLOGICAL Hx Neurological Disorder: Yes Hx Alzheimer's Disease: No HX Cerebrovascular Accident: Yes (x2) Hx Dementia: No Hx Dizziness: Yes Hx Meningitis: No Hx Migraine: No Hx Parkinson's Disease: No Hx Seizures: No Hx Transient Ischemic Attacks (TIA): Yes (x1) - HEENT Hx HEENT Problems: Yes (blurred vision) Hx Blind: No Hx Cataracts: Yes Hx Deafness: No Hx Difficulty Chewing: No Hx Epistaxis: No Hx Glaucoma: Yes Hx Macular Degeneration: No - RENAL Hx Chronic Kidney Disease: No Hx Dialysis: No Hx Kidney Stones: No Hx Neurogenic Bladder: No Hx Pyelonephritis: No Hx Renal (Kidney) Cancer: No Hx Renal Failure: No - ENDOCRINE/METABOLIC Hx Endocrine Disorders: Yes Hx Adrenal Cancer: No Hx Diabetes Insipidus: No Hx Diabetes Mellitus Type 1: No Hx Diabetes Mellitus Type 2: Yes Hx Hyperthyroidism: No Hx Hypothyroidism: Yes Hx Systemic Lupus Erythematosus: No - HEMATOLOGICAL/ONCOLOGICAL Hx Blood Disorders: No Hx AIDS: No Hx Anemia: No Hx Cancer: No Hx Chemotherapy: No Hx Cirrhosis: No Hx Hemophilia: No Hx Hepatitis A: No Hx Hepatitis B: No Hx Hepatitis C: No Hx Human Immunodeficiency Virus (HIV): No Hx Metastesis: No Hx Shingles: No Hx Sickle Cell Disease: No Hx Unexplained Bleeding: No - INTEGUMENTARY Hx Dermatological Problems: Yes (rash under breasts) Hx Basil Cell: No Hx Eczema: No Hx Melanoma: No Hx Psoriasis: No Hx Squamous Cell: No - MUSCULOSKELETAL/RHEUMATOLOGICAL Hx Musculoskeletal Disorders: Yes Hx Arthritis: Yes Hx Back Pain: No Hx Degenerative Joint Disease: No Hx Falls: No Hx Fractures: No Hx Gout: No Hx Herniated Disk: No Hx Myasthenia Gravis: No Hx Osteoarthritis: Yes Hx Osteomyelitis: No Hx Osteoporosis: No Hx Rhabdomyolysis: No Hx Spinal Stenosis: No Hx Unsteady Gait: No - GASTROINTESTINAL Hx Gastrointestinal Disorders: Yes (IBS) Hx Colostomy: No Hx Crohn's Disease: No Hx Diverticulitis: No Hx Gall Bladder Disease: No Hx Gastroesophageal Reflux: No Hx Ileostomy: No Hx Liver Failure: No Hx Pancreatitis: No HX Swallowing Problems: No Hx Ulcer: No - GENITOURINARY/GYNECOLOGICAL Hx Genitourinary Disorders: Yes (burning on urination) Hx Hematuria: No Hx Incontinence: Yes Hx Sexually Transmitted Disorders: No Hx Urinary Tract Infection: Yes - PSYCHIATRIC Hx Psychophysiologic Disorder: No Hx Anxiety: No Hx Bipolar Disorder: No Hx Depression: No Hx Emotional Abuse: No Hx Hallucinations: No Hx Panic Symptoms: No Hx Paranoia: No Hx Post Traumatic Stress Disorder: No Hx Psychosis: No Hx Physical Abuse: No Hx Schizophrenia: No Hx Sexual Abuse: No - SURGICAL HISTORY Hx Surgeries: Yes (left benign breast mass removed) Hx Amputation: No Hx Appendectomy: Yes Hx Cardiac Catheterization: No Hx Cholecystectomy: Yes Hx Coronary Stent: No Hx Gastric Bypass Surgery: No Hx Hysterectomy: No Hx Joint Replacement: No Hx Kidney Transplant: No Hx Liver Transplant: No Hx Mastectomy: No Hx Musculoskeletal Surgery: No Hx Open Heart Surgery: No Hx Orthopedic Surgery: No Hx Splenectomy: No Hx Valve Replacement: No Other/Comment: colonoscopy x7 - ANESTHESIA Hx Anesthesia: Yes Hx Anesthesia Reactions: No Hx Malignant Hyperthermia: No Meds Allergies/Adverse Reactions: Allergies Allergy/AdvReac Type Severity Reaction Status Date / Time hydromorphone HCl Allergy Severe HALLUCINATI Verified 02/14/17 17:16 [From Dilaudid] ONS tramadol Allergy Severe RASH Verified 02/14/17 17:16 - Medications Medications: Current Medications Clopidogrel Bisulfate (Plavix) 75 mg PO DAILY [facility] Last Admin: 03/19/17 09:35 Dose: 75 mg Fenofibrate (Tricor) 145 mg PO DAILY [facility] Last Admin: 03/19/17 09:35 Dose: 145 mg Furosemide (Lasix) 40 mg PO TID [facility] Last Admin: 03/19/17 09:35 Dose: 40 mg Glimepiride (Amaryl) 4 mg PO BID [facility] Last Admin: 03/19/17 09:34 Dose: 4 mg Sodium Chloride (Sodium Chloride 0.45%) 1,000 mls @ 30 mls/hr IV .Q24H [facility] Last Admin: 03/18/17 18:40 Dose: 30 mls/hr Insulin Human Regular (Humulin R Med) 0 units SC ACHS [facility] PRN Reason: Protocol Last Admin: 03/19/17 09:36 Dose: Not Given Levothyroxine Sodium (Synthroid) 25 mcg PO DAILY [facility] Last Admin: 03/19/17 09:35 Dose: 25 mcg Metformin HCl (Glucophage) 1,000 mg PO BID [facility] Last Admin: 03/19/17 09:34 Dose: 1,000 mg Mupirocin (Bactroban Ointment) 0 gm TOP BID [facility] Last Admin: 03/19/17 09:36 Dose: 1 cre Physical Exam - Constitutional Appears: Well, No Acute Distress - Head Exam Head Exam: ATRAUMATIC, NORMAL INSPECTION, NORMOCEPHALIC - Eye Exam Eye Exam: EOMI, Normal appearance - ENT Exam ENT Exam: Mucous Membranes Moist - Respiratory Exam Respiratory Exam: Clear to Auscultation Bilateral, NORMAL BREATHING PATTERN. absent: Rhonchi, Wheezes, Respiratory Distress - Cardiovascular Exam Cardiovascular Exam: REGULAR RHYTHM, +S1, +S2. absent: Tachycardia, Diastolic murmur, Systolic Murmur - Extremities Exam Extremities exam: Positive for: normal inspection. Negative for: tenderness - Neurological Exam Neurological exam: Alert, CN II-XII Intact, Oriented x3 - Expanded Neurological Exam Expanded Patient oriented to: person, place, time Speech: Fluid Speech Cranial nerves: EOM's Intact: Normal Cerebellar Function: Finger to Nose: Normal Neuro motor strength exam: Left Upper Extremity: 5, Right Upper Extremity: 5, Left Lower Extremity: 5, Right Lower Extremity: 5 - Skin Skin Exam: Dry, Intact, Normal Color, Warm Results - Vital Signs Recent Vital Signs: Last Vital Signs Temp 97.8 F 03/19/17 05:47 Pulse 80 03/19/17 05:47 Resp 19 03/19/17 05:47 BP 130/60 03/19/17 09:35 Pulse Ox 96 03/19/17 05:47 - Labs Result Diagrams: 03/19/17 05:30 03/19/17 05:30 Labs: Laboratory Results - last 24 hr 03/18/17 03/18/17 03/19/17 20:06 21:10 05:30 WBC RBC Hgb Hct MCV MCH MCHC RDW Plt Count MPV Sodium 143 Potassium 3.7 Chloride 110 H Carbon Dioxide 24 Anion Gap 13 BUN 23 H Creatinine 1.1 Est GFR ( Amer) 58 Est GFR (Non-Af Amer) 48 POC Glucose (mg/dL) 205 H Random Glucose 136 H Calcium 10.0 Total Bilirubin 0.3 AST 24 ALT 22 Alkaline Phosphatase 71 NT-Pro-B Natriuret Pep 308 Total Protein 6.8 Albumin 3.7 Globulin 3.1 Albumin/Globulin Ratio 1.2 TSH 3rd Generation Urine Color yellow Urine Appearance Clear Urine pH 6.0 Ur Specific [place] 1.020 Urine Protein Trace H Urine Glucose (UA) 250 H Urine Ketones Negative Urine Blood Negative Urine Nitrate Negative Urine Bilirubin Negative Urine Urobilinogen 0.2 Ur Leukocyte Esterase Small H Urine RBC 2 - 5 Urine WBC 5 - 10 Ur Epithelial Cells 6 - 8 03/19/17 03/19/17 05:30 05:30 WBC 6.5 D RBC 3.14 L Hgb 9.4 L Hct 28.5 L MCV 90.8 MCH 29.9 MCHC 33.0 RDW 15.3 H Plt Count 170 MPV 9.6 Sodium Potassium Chloride Carbon Dioxide Anion Gap BUN Creatinine Est GFR ( Amer) Est GFR (Non-Af Amer) POC Glucose (mg/dL) Random Glucose Calcium Total Bilirubin AST ALT Alkaline Phosphatase NT-Pro-B Natriuret Pep Total Protein Albumin Globulin Albumin/Globulin Ratio TSH 3rd Generation 3.04 Urine Color Urine Appearance Urine pH Ur Specific [place] Urine Protein Urine Glucose (UA) Urine Ketones Urine Blood Urine Nitrate Urine Bilirubin Urine Urobilinogen Ur Leukocyte Esterase Urine RBC Urine WBC Ur Epithelial Cells Assessment & Plan - Assessment and Plan (Free Text) Assessment: 81 year old female with past medical history of previous stroke, with left visual field deficit, hypertension, diabetes and CHF, was brought in to the emergency department complaining of right sided unsteady gait most likely due to de conditioning and walker dependence - CT head showed no acute intracranial hemorrhage, no new infarct - previous MRI on 02/15/17 showed infarction of right occipital lobe, encephalomalacia if left frontal lobe - MRI ordered - vit B12, Vit D - hemocysteine, methylmalonic acid, vit E - continue plaxiv 75mg, fenofibrate - PT/OT case reviewed and discussed with attending <Chai Nguyen - Last Filed: 03/19/17 18:03> Results - Vital Signs Recent Vital Signs: Last Vital Signs Temp 97.6 F 03/19/17 12:00 Pulse 95 H 03/19/17 14:00 Resp 19 03/19/17 12:00 BP 106/66 03/19/17 12:00 Pulse Ox 96 03/19/17 05:47 - Labs Result Diagrams: 03/19/17 05:30 03/19/17 05:30 Labs: Laboratory Results - last 24 hr 03/18/17 03/18/17 03/19/17 20:06 21:10 05:30 WBC RBC Hgb Hct MCV MCH MCHC RDW Plt Count MPV Sodium 143 Potassium 3.7 Chloride 110 H Carbon Dioxide 24 Anion Gap 13 BUN 23 H Creatinine 1.1 Est GFR ( Amer) 58 Est GFR (Non-Af Amer) 48 POC Glucose (mg/dL) 205 H Random Glucose 136 H Calcium 10.0 Total Bilirubin 0.3 AST 24 ALT 22 Alkaline Phosphatase 71 NT-Pro-B Natriuret Pep 308 Total Protein 6.8 Albumin 3.7 Globulin 3.1 Albumin/Globulin Ratio 1.2 Vitamin B12 460 25-OH Vitamin D Total TSH 3rd Generation Urine Color yellow Urine Appearance Clear Urine pH 6.0 Ur Specific [place] 1.020 Urine Protein Trace H Urine Glucose (UA) 250 H Urine Ketones Negative Urine Blood Negative Urine Nitrate Negative Urine Bilirubin Negative Urine Urobilinogen 0.2 Ur Leukocyte Esterase Small H Urine RBC 2 - 5 Urine WBC 5 - 10 Ur Epithelial Cells 6 - 8 03/19/17 03/19/17 03/19/17 05:30 05:30 05:30 WBC 6.5 D RBC 3.14 L Hgb 9.4 L Hct 28.5 L MCV 90.8 MCH 29.9 MCHC 33.0 RDW 15.3 H Plt Count 170 MPV 9.6 Sodium Potassium Chloride Carbon Dioxide Anion Gap BUN Creatinine Est GFR ( Amer) Est GFR (Non-Af Amer) POC Glucose (mg/dL) Random Glucose Calcium Total Bilirubin AST ALT Alkaline Phosphatase NT-Pro-B Natriuret Pep Total Protein Albumin Globulin Albumin/Globulin Ratio Vitamin B12 25-OH Vitamin D Total < 12.8 L TSH 3rd Generation 3.04 Urine Color Urine Appearance Urine pH Ur Specific [place] Urine Protein Urine Glucose (UA) Urine Ketones Urine Blood Urine Nitrate Urine Bilirubin Urine Urobilinogen Ur Leukocyte Esterase Urine RBC Urine WBC Ur Epithelial Cells 03/19/17 03/19/17 03/19/17 08:35 11:16 12:47 WBC RBC Hgb Hct MCV MCH MCHC RDW Plt Count MPV Sodium Potassium Chloride Carbon Dioxide Anion Gap BUN Creatinine Est GFR ( Amer) Est GFR (Non-Af Amer) POC Glucose (mg/dL) 130 H 198 H 252 H Random Glucose Calcium Total Bilirubin AST ALT Alkaline Phosphatase NT-Pro-B Natriuret Pep Total Protein Albumin Globulin Albumin/Globulin Ratio Vitamin B12 25-OH Vitamin D Total TSH 3rd Generation Urine Color Urine Appearance Urine pH Ur Specific [place] Urine Protein Urine Glucose (UA) Urine Ketones Urine Blood Urine Nitrate Urine Bilirubin Urine Urobilinogen Ur Leukocyte Esterase Urine RBC Urine WBC Ur Epithelial Cells Attending/Attestation - Attestation I have personally seen and examined this patient.: Yes I have fully participated in the care of the patient.: Yes I have reviewed all pertinent clinical information: Yes
--- NOTE | 2017-03-19 13:02 | MRI ---
PROCEDURE: MRI BRAIN WITHOUT CONTRAST HISTORY: cva COMPARISON: 02/15/2017 MRI TECHNIQUE: Multiplanar, multisequence MR images of the brain were obtained without intravenous contrast enhancement. FINDINGS: HEMORRHAGE: None DWI: No evidence of an acute or early subacute infarction. BRAIN PARENCHYMA: No mass effect or edema. There is a recent infarct in the right occipital and temporal lobes which was seen in the acute phase on the study of 02/15/2017. On the current study the infarct shows focal atrophy and a minimal amount of hemosiderin deposition. There is minimal restricted diffusion. The findings are consistent with a late subacute early chronic infarct. There is a well-circumscribed white matter infarct in the left frontal lobe. This is unchanged VENTRICLES: Unremarkable. No hydrocephalus. CRANIUM: Unremarkable. ORBITS: Grossly unremarkable. PARANASAL SINUSES/MASTOIDS: Clear VASCULAR SYSTEM: Skull base flow voids intact. OTHER FINDINGS: None. IMPRESSION: Subacute or chronic infarct of the right occipital and temporal lobes with minimal hemosiderin deposition. There are no acute infarcts identified
[2017-03-19 13:05] VITALS: BP 106/66; TEMP 97.6
[2017-03-19 15:26] VITALS: PULSE 95
--- NOTE | 2017-03-20 01:07 | DS ---
HISTORY OF PRESENT ILLNESS: She is resting comfortable in bed, feeling a little bit better than when she came. She still cannot walk correctly. Awaiting for physical therapy to let me know if I can get her to TCU or to subacute rehab. She might need subacute rehab. She was just in the hospital on 02/17/2017 and today is 03/19/2017, it is 30 days since she has been in the hospital hoping to get her out and there is still a bit work under the same 30 days admission. She is in observation. PHYSICAL EXAMINATION: VITAL SIGNS: 97.8 temperature, 80 pulse, 136/64 blood pressure, 19 respiratory rate, and 96% O2 saturation on room air. HEENT: Head is atraumatic, normocephalic. HEART: Regular rate. LUNGS: Clear to auscultation. ABDOMEN: Soft, obese, and nontender. EXTREMITIES: No edema. SKIN: She has multiple bug bites, getting antibiotic cream. MEDICATIONS: She has Amaryl, Bactroban cream, Glucophage, insulin, Lasix, Plavix, IV fluids, Synthroid, and Tricor. She has definitely improved since she has been here. LABORATORY DATA: Sodium 143, potassium 3.7, BUN 23, creatinine 1.1, better. GFR is 48, sugar is 136, calcium 10. Total bilirubin is 0.3, AST 24, ALT 22, and alk phos 71. BNP is 308, total protein 6.8, and albumin 3.7. TSH is 3.04. 6.5 white count, 9.4 hemoglobin, 20.5 hematocrit with 170 platelets. ASSESSMENT AND PLAN: She was supposed to be seen by Neurology to get their opinion. Hopefully, they will come in today. I am also going to try and get her to subacute rehab for walking. I will see what physical therapy says. She is in observation. She has been here for one day and will be discharged later, so I can pull that off. Dante March DO
[2017-03-20 07:23] LABS: HOMOCYSTEINE 8.6 umol/L (<10.4)
[2017-03-21 14:06] LABS: VITAMIN E (ALPHA) 12.8 mg/L (5.7-19.9); VITAMIN E (B-GAMMA) 3.4 mg/L (<=4.3)
== END 2017-03-19 16:35 | disposition home health service (06) ==
LOC: ED 16:05 → ERH 17:19 → 2RSO 21:57
PROVIDERS: ADMIT Family Medicine; ATTEND Family Medicine
DX: R26.81 Unsteadiness on feet (principal); I11.0 Hypertensive heart disease with heart failure; I50.9 Heart failure, unspecified; I69.312 Visuospatial deficit and spatial neglect following cerebral infarction; E11.36 Type 2 diabetes mellitus with diabetic cataract; E11.39 Type 2 diabetes mellitus with other diabetic ophthalmic complication; H40.9 Unspecified glaucoma; E03.9 Hypothyroidism, unspecified; K64.9 Unspecified hemorrhoids; K58.9 Irritable bowel syndrome, unspecified; Z79.84 Long term (current) use of oral hypoglycemic drugs
CPT/HCPCS: 36415; 70450; 70551; 71010; 80053; 80061; 81001; 82306; 82550; 82607; 82948; 83036; 83090; 83615; 83880; 83921; 84443; 84446; 84484; 85025; 85027; 85610; 85730; 86850; 86900; 87086; 93005; 97116; 97162; 99285; G0378; G8978; G8979; G8980; J7030

== ENCOUNTER 2017-04-26 10:24 | Emergency (ER) | payer MEDICARE, OTHER ==
[2017-04-26 10:37] VITALS: BMI 36.6
[2017-04-26 10:45] VITALS: RESP 18
[2017-04-26] MEDS ORDERED: Sodium Chloride 0.9% 1,000 ML IV STA (10:57)
--- NOTE | 2017-04-26 11:18 | RAD ---
HISTORY: cough COMPARISON: 03/18/2017 FINDINGS: LUNGS: No active pulmonary disease. PLEURA: No significant pleural effusion identified, no pneumothorax apparent. CARDIOVASCULAR: Normal. OSSEOUS STRUCTURES: No significant abnormalities. VISUALIZED UPPER ABDOMEN: Normal. OTHER FINDINGS: None. IMPRESSION: No active disease.
[2017-04-26 12:04] LABS: BASO # 0.02 K/mm3 (0.0-2.0); BASO % 0.2 % (0.0-3.0); EOS # 0.1 (0.0-0.7); EOS % 0.8 % (1.5-5.0); GRAN # 8.77 (1.4-6.5); GRAN % 82.4 % (50.0-68.0); HEMOGLOBIN 9.7 g/dL (12.0-16.0); LYMPH % 9.1 % (22.0-35.0); MEAN CELL VOLUME 93.6 fl (80.0-105.0); MEAN CORPUSCULAR HEMOGLOBIN 30.9 pg (25.0-35.0); MEAN PLATELET VOLUME 9.2 fl (7.0-11.0); MONO # 0.8 (0.1-0.6); MONO % 7.5 % (1.0-6.0); RBC 3.14 10^6/uL (3.5-6.1); RED CELL DISTRIBUTION WIDTH 16.2 % (11.5-14.5); WHITE BLOOD COUNT 10.6 10^3/ul (4.5-11.0)
[2017-04-26 12:05] VITALS: O2SAT 96
[2017-04-26 12:05] LABS: VENOUS BLOOD GAS BASE EXCESS 3.2 mmol/L (0.0-2.0); VENOUS BLOOD GAS PO2 39 mm/Hg (30-55); VENOUS BLOOD PH 7.41 (7.32-7.43)
[2017-04-26 12:15] LABS: INR 1.19 (0.93-1.08); PARTIAL THROMBOPLASTIN TIME 31.2 Seconds (25.1-36.5); PROTHROMBIN TIME 13.7 SECONDS (9.4-12.5)
--- NOTE | 2017-04-26 12:22 | ED PDOC ---
Arrival/HPI - General Chief Complaint: Cough, Cold, Congestion Time Seen by Provider: 04/26/17 10:56 Historian: Patient, Family - History of Present Illness Narrative History of Present Illness (Text): 04/26/17 81 year old female w/PMHx of CHF, hypertension, diabetes, and CVA with no residual effects, brought into the emergency room by daughter for evaluation of cold sx for past 2 days. As per pt, " bodyaches, chills, facial congestion developed for past few days". Pt reports, now, have some pain in left ear. As per family, PMD Dr. March was called and RX; Tamiflu called in, pt started yesterday. Otherwise, pt and family member denies high fever, severe headache, dizziness, drooling, dysphagia, dyspnea, SOB, wheezing, palpitation, abd. pain, N/V/D, UTI sx. At present time , pt appears awake, alert. comfortable, not in any apparent distress. was called and pt was seen down in ED. As per , if no significant changes on blood work, pt can be discharged with outpt f/u. Past Medical History - Provider Review Nursing Documentation Reviewed: Yes - Travel History Have you recently traveled outside [place] w/in the past 3 mons?: No - Past History Past History: Non-Contributing - Infectious Disease Hx of Infectious Diseases: None - Tetanus Immunization Tetanus Immunization: Unknown - Past Medical History Past Medical History: No Previous - Cardiac Hx Cardiac Disorders: Yes Hx Congestive Heart Failure: Yes Hx Hypertension: Yes - Pulmonary Hx Respiratory Disorders: Yes Hx Bronchitis: Yes - Neurological Hx Neurological Disorder: Yes HX Cerebrovascular Accident: Yes (no deficits) Hx Transient Ischemic Attacks (TIA): Yes - HEENT Hx HEENT Disorder: Yes (uses glasses) Hx Cataracts: Yes (sx) Hx Glaucoma: Yes - Renal Hx Renal Disorder: No - Endocrine/Metabolic Hx Endocrine Disorders: Yes Hx Diabetes Mellitus Type 2: Yes Hx Hypothyroidism: Yes - Hematological/Oncological Hx Blood Transfusions: No - Integumentary Hx Dermatological Disorder: No - Musculoskeletal/Rheumatological Hx Falls: No - Gastrointestinal Hx Gastrointestinal Disorders: Yes (IBS) - Genitourinary/Gynecological Hx Genitourinary Disorders: Yes (frequent urination) - Psychiatric Hx Emotional Abuse: No Hx Physical Abuse: No Hx Substance Use: No - Past Surgical History Past Surgical History: Unable to Obtain - Surgical History Hx Appendectomy: Yes Hx Cholecystectomy: Yes - Anesthesia Hx Anesthesia: Yes Hx Anesthesia Reactions: No Hx Malignant Hyperthermia: No - Suicidal Assessment Feels Threatened In Home Enviroment: No Family/Social History - Physician Review Nursing Documentation Reviewed: Yes Family/Social History: No Known Family HX Smoking Status: Never Smoked Hx Alcohol Use: No Hx Substance Use: No Hx Substance Use Treatment: No Allergies/Home Meds Allergies/Adverse Reactions: Allergies hydromorphone HCl [From Dilaudid] Allergy (Severe, Verified 02/14/17 17:16) HALLUCINATIONS tramadol Allergy (Severe, Verified 02/14/17 17:16) RASH Home Medications: Home Meds Medication Instructions Recorded Confirmed Clopidogrel [Plavix] 75 mg PO DAILY 10/11/15 04/26/17 Furosemide [Lasix] 40 mg PO TID 10/11/15 04/26/17 metFORMIN [glucOPHAGE] 1,000 mg PO BID 10/11/15 04/26/17 Levothyroxine [Synthroid] 25 mcg PO DAILY 05/29/16 04/26/17 Cyanocobalamin [Vitamin B12 1000 1,000 mcg PO DAILY 11/30/16 04/26/17 mcg Tab] Hydrocortisone [Procto-Med Hc] 30 gm RC BID 11/30/16 04/26/17 [id number] Ethyl Esters [OMEGA 3] 1 tab PO BID 11/30/16 04/26/17 Potassium Chloride [K-Dur 20] 20 meq PO DAILY 03/18/17 04/26/17 Folic Acid [Folic Acid] 1 tab PO DAILY 04/26/17 04/26/17 Glimepiride [amaRYL] 1 tab PO BID 04/26/17 04/26/17 Meclizine [Meclizine*] 1 tab PO BID PRN 04/26/17 04/26/17 Review of Systems - Review of Systems Constitutional: Fatigue Eyes: Normal. absent: Vision Changes ENT: Sore Throat, Rhinorrhea, Sinus Congestion Respiratory: Cough. absent: SOB, Sputum, Wheezing Cardiovascular: Normal. absent: Chest Pain, Palpitations Gastrointestinal: Normal. absent: Abdominal Pain Genitourinary Female: Normal. absent: Dysuria Musculoskeletal: Normal Skin: Normal. absent: Rash Neurological: Normal Endocrine: Normal Hemo/Lymphatic: Normal Psychiatric: Normal Physical Exam Vital Signs Reviewed: Yes Vital Signs Temp Pulse Resp BP Pulse Ox 04/26/17 13:35 99.1 F 75 18 108/69 96 04/26/17 12:04 79 18 105/68 96 04/26/17 10:41 100.0 F H 85 18 103/62 95 Temperature: Febrile Blood Pressure: Normal Pulse: Regular Respiratory Rate: Normal Appearance: Positive for: Well-Appearing, Non-Toxic, Comfortable Pain Distress: None Mental Status: Positive for: Alert and Oriented X 3 - Systems Exam Head: Present: Normocephalic Conjunctiva: Present: Normal Ears: Present: NORMAL TM (B/L), Normal Canal (B/L) Mouth: Present: Moist Mucous Membranes. No: Drooling Pharnyx: Present: ERYTHEMA (mild B/L). No: EXUDATE, TONSILS ENLARGED Nose (Internal): Present: Rhinorrhea (scant clear B/L with mild congestion) Neck: Present: Trachea Midline. No: MIDLINE TENDERNESS Respiratory/Chest: Present: Clear to Auscultation, Good Air Exchange. No: Respiratory Distress, Accessory Muscle Use, Wheezes, Decreased Breath Sounds Cardiovascular: Present: Murmurs (holosystolic, 2/6), Normal S1, S2, Irregular Rhythm Abdomen: Present: Normal Bowel Sounds. No: Tenderness, Distention, Peritoneal Signs, Rebound, Guarding Back: No: CVA Tenderness Upper Extremity: Present: Normal ROM Lower Extremity: Present: Normal ROM. No: Edema, CALF TENDERNESS, Deformity Neurological: Present: GCS=15, Speech Normal Skin: Present: Warm, Dry, Normal Color. No: Rashes Psychiatric: Present: Alert, Oriented x 3, Normal Insight Medical Decision Making ED Course and Treatment: 04/26/17 pt was OBS in ED for 3 hours On re-evaluation, pt is afebrile, hemodynamicaly stable. non-toxic. PuslEOx 95% RA neck: SUpple, (-) meningeal sign ENT: No acute findings. Lungs: CTA B/L, BS equal B/L Abd: benign. Neuorlogicaly intact. Blood work review and appears baseline. EKG, CXR review and appears normal study, compare to previous ones. UA (+) nitrates Influenza A (-) Pt has clinical findings c/w viral illness, UTI. Ucx- pending. Abx given. As per , pt is stable for discharge and outpt f/u now. results review and discussed with patient and family. UTI appears recurrent, chronic, ' was on multiple abs before". ref. to f/u with for UCx-return at any time if any worsening or new changes. Pt and family Understand and agrees with discharges. - Lab Interpretations Lab Results: 04/26/17 11:40 04/26/17 13:30 Lab Results 04/26/17 14:05: Urine Color Yellow, Urine Appearance Turbid, Urine pH 6.0, Ur Specific Isabella >= 1.030, Urine Protein 30 H, Urine Glucose (UA) Negative, Urine Ketones Negative, Urine Blood Trace-intact H, Urine Nitrate Positive H, Urine Bilirubin Negative, Urine Urobilinogen 0.2, Ur Leukocyte Esterase Moderate H, Urine RBC 0 - 2, Urine WBC Tntc, Ur Epithelial Cells Many, Urine Bacteria Many 04/26/17 13:30: Sodium 139, Chloride 98, Potassium 3.7, Carbon Dioxide 28, Anion Gap 17, BUN 18, Creatinine 1.4 H, Est GFR ( Amer) 44, Est GFR (Non- Af Amer) 36, Random Glucose 227 H, Calcium 9.8, Total Bilirubin 0.6, AST 32, ALT 17, Alkaline Phosphatase 62, Total Protein 7.5, Albumin 4.0, Globulin 3.5, Albumin/Globulin Ratio 1.1 04/26/17 11:40: Influenza Typ A,B (EIA) Negative for flu a/b 04/26/17 11:40: pO2 39, VBG pH 7.41, VBG pCO2 45.0, VBG HCO3 28.5 H, VBG Total CO2 29.9 H, VBG O2 Sat (Calc) 80.5 H, VBG Base Excess 3.2 H, VBG Potassium 3.7, Sodium 139.0, Chloride 100.0, Glucose 220 H, Lactate 2.1, FiO2 21.0, Venous Blood Potassium 3.7 04/26/17 11:40: PT 13.7 H, INR 1.19 H, APTT 31.2 04/26/17 11:40: WBC 10.6 D, RBC 3.14 L, Hgb 9.7 L, Hct 29.4 L, MCV 93.6, MCH 30.9, MCHC 33.0, RDW 16.2 H, Plt Count 174, MPV 9.2, Gran % 82.4 H, Lymph % ( Auto) 9.1 L, [place] % (Auto) 7.5 H, Eos % (Auto) 0.8 L, Baso % (Auto) 0.2, Gran # 8.77 H, Lymph # 1.0 L, [place] # 0.8 H, Eos # 0.1, Baso # 0.02 - RAD Interpretation Radiology Orders: 04/26/17 10:57 CHEST PORTABLE [RAD] Stat IMPRESSION: No active disease. - EKG Interpretation EKG Interpretation (Text): 04/26/17 11:05 SR@92/min, 1st degrees AVB, PACs, no acute ST-T changes. Interpreted by ED Physician: Yes Comparison: Similar to previous EKG - Medication Orders Current Medication Orders: Ceftriaxone Sodium (Rocephin 2 Gm Ivpb) 2 gm in 100 mls @ 100 mls/hr IVPB STAT STA PRN Reason: Protocol Stop: 04/26/17 15:39 Last Admin: 04/26/17 14:53 Dose: 100 mls/hr eMAR Start Stop Document 04/26/17 14:53 EQ (Rec: 04/26/17 14:54 EQ [id number]) Intravenous Solution Start Date 04/26/17 Start Time 14:53 Discontinued Medications Sodium Chloride (Sodium Chloride 0.9%) 1,000 mls @ 250 mls/hr IV .Q4H STA Stop: 04/26/17 14:56 Last Admin: 04/26/17 12:01 Dose: 250 mls/hr eMAR Start Stop Document 04/26/17 12:01 EQ (Rec: 04/26/17 12:01 EQ [id number]) Intravenous Solution Start Date 04/26/17 Start Time 12:01 Disposition/Present on Arrival - Present on Arrival Any Indicators Present on Arrival: No History of DVT/PE: No History of Uncontrolled Diabetes: No Urinary Catheter: No History of Decub. Ulcer: No History Surgical Site Infection Following: None - Disposition Have Diagnosis and Disposition been Completed?: Yes Diagnosis: Viral illness, UTI (urinary tract infection) Disposition: HOME/ ROUTINE Disposition Time: 13:19 Patient Plan: Discharge Patient Problems: Current Active Problems Problem Status Onset Urinary tract infection Acute Viral illness Acute Condition: STABLE Discharge Instructions (ExitCare): Urinary Tract Infection in Women (ED), Viral Syndrome (ED) Additional Instructions: CONTINUE MEDICATION GIVEN BY [facility]ED[facility] FOR 2-[address] UP WITH DR. MARCH IN 1-2 DAYS FOR RE-EVALUATION. RETURN TO ED IF ANY WORSENING OR NEW CHANGES. Prescriptions: Cefdinir [Omnicef] 300 mg PO BID #14 cap Referrals: Dante March DO [Staff Provider] - Follow up with primary Forms: Check[employer] (Hebrew)
[2017-04-26 13:52] LABS: ALB/GLOB RATIO 1.1 (1.1-1.8); CALCIUM 9.8 mg/dL (8.4-10.5)
[2017-04-26 14:29] LABS: URINE BILIRUBIN NEGATIVE (NEGATIVE); URINE BLOOD TRACE-INTACT (NEGATIVE); URINE GLUCOSE (UA) NEGATIVE (NEGATIVE); URINE LEUKOCYTE ESTERASE MODERATE Leu/uL (NEGATIVE); URINE NITRATE POSITIVE (NEGATIVE); URINE PROTEIN 30 mg/dL (<30 mg/dL); URINE UROBILINOGEN 0.2 E.U./dL (<1 E.U./dL)
[2017-04-26 14:32] LABS: URINE APPEARANCE TURBID (CLEAR); URINE COLOR YELLOW (YELLOW)
[2017-04-26 14:35] LABS: URINE BACTERIA MANY (NEG); URINE EPITHELIAL CELLS MANY /hpf (0-5); URINE RBC 0 - 2 /hpf (0-2); URINE WBC TNTC /hpf (0-6)
[2017-04-26] MEDS ORDERED: cefTRIAXone 2 GM IN NS 2 GM/100 ML BAG IVPB STA (14:40)
--- NOTE | 2017-04-26 14:55 | CARD ---
APPROVED REPORT EKG Measurement Heart [id number] <Conclusion> Sinus rhythm with 1st degree AV block with premature atrial complexes ASMI, age unknown Nonspecific T wave abnormality
[2017-04-26 15:41] VITALS: BP 112/71; PULSE 69; TEMP 98.7
== END 2017-04-26 15:52 | disposition home or self-care (01) ==
LOC: ED 10:24
DX: B34.9 Viral infection, unspecified (principal); N39.0 Urinary tract infection, site not specified; I50.9 Heart failure, unspecified; I10 Essential (primary) hypertension; E11.9 Type 2 diabetes mellitus without complications; E03.9 Hypothyroidism, unspecified
CPT/HCPCS: 71045; 80053; 81001; 82803; 85025; 85610; 85730; 87040; 87086; 87804; 93005; 99283; J0696; J7040

== ENCOUNTER 2017-07-22 10:21 | Observation (INO) | payer MEDICARE, OTHER ==
[2017-07-22 10:21] VITALS: BMI 36.6
--- NOTE | 2017-07-22 10:59 | ED PDOC ---
Arrival/HPI - General Chief Complaint: Altered Mental Status Time Seen by Provider: 07/22/17 10:38 Historian: Patient, Family (daughter ) - History of Present Illness Narrative History of Present Illness (Text): 07/22/17 10:45 82 year old female, whose PMH includes hypertension, CHF, CVA, TIA, diabetes, who presents to the emergency department, accompanied by daughter complaining of patient being confused and not finishing her sentences. Daughter reports she went to patient's room this morning and noticed that her mother was not making sense when speaking to her. She notes patient was fine last night anNo other complaints were made. 07/22/17 12:05 Time/Duration: Prior to Arrival Symptom Onset: Sudden Symptom Course: Unchanged Activities at Onset: Rest Context: Home Past Medical History - Provider Review Nursing Documentation Reviewed: Yes - Past History Past History: Non-Contributing - Infectious Disease Hx of Infectious Diseases: None - Tetanus Immunization Tetanus Immunization: Unknown - Reproductive Menopause: No - Past Medical History Past Medical History: No Previous - Cardiac Hx Cardiac Disorders: Yes Hx Congestive Heart Failure: Yes Hx Hypertension: Yes - Pulmonary Hx Respiratory Disorders: Yes Hx Bronchitis: Yes - Neurological Hx Neurological Disorder: Yes HX Cerebrovascular Accident: Yes (no deficits) Hx Transient Ischemic Attacks (TIA): Yes - HEENT Hx HEENT Disorder: Yes (uses glasses) Hx Cataracts: Yes (sx) Hx Glaucoma: Yes - Renal Hx Renal Disorder: No - Endocrine/Metabolic Hx Endocrine Disorders: Yes Hx Diabetes Mellitus Type 2: Yes Hx Hypothyroidism: Yes - Hematological/Oncological Hx Blood Transfusions: No - Integumentary Hx Dermatological Disorder: No - Musculoskeletal/Rheumatological Hx Falls: No - Gastrointestinal Hx Gastrointestinal Disorders: Yes (IBS) - Genitourinary/Gynecological Hx Genitourinary Disorders: Yes (frequent urination) - Psychiatric Hx Emotional Abuse: No Hx Physical Abuse: No Hx Substance Use: No - Past Surgical History Past Surgical History: Unable to Obtain - Surgical History Hx Appendectomy: Yes Hx Cholecystectomy: Yes - Anesthesia Hx Anesthesia: Yes Hx Anesthesia Reactions: No Hx Malignant Hyperthermia: No - Suicidal Assessment Feels Threatened In Home Enviroment: No Family/Social History - Physician Review Nursing Documentation Reviewed: Yes Family/Social History: Unknown Family HX Smoking Status: Never Smoked Hx Alcohol Use: No Hx Substance Use: No Hx Substance Use Treatment: No Allergies/Home Meds Allergies/Adverse Reactions: Allergies hydromorphone HCl [From Dilaudid] Allergy (Severe, Verified 07/22/17 17:15) HALLUCINATIONS tramadol Allergy (Severe, Verified 07/22/17 17:15) RASH Home Medications: Home Meds Medication Instructions Recorded Confirmed Clopidogrel [Plavix] 75 mg PO DAILY 10/11/15 07/22/17 Furosemide [Lasix] 40 mg PO TID 10/11/15 07/22/17 metFORMIN [glucOPHAGE] 1,000 mg PO BID 10/11/15 07/22/17 Levothyroxine [Synthroid] 25 mcg PO DAILY 05/29/16 07/22/17 Cyanocobalamin [Vitamin B12 1000 1,000 mcg PO DAILY 11/30/16 07/22/17 mcg Tab] Hydrocortisone [Procto-Med Hc] 30 gm RC BID PRN 11/30/16 07/22/17 Tsabj-1-Bidd Ethyl Esters [OMEGA 3] 1 tab PO BID 11/30/16 07/22/17 Potassium Chloride [K-Dur 20] 20 meq PO DAILY 03/18/17 07/22/17 Folic Acid [Folic Acid] 1 tab PO DAILY 04/26/17 07/22/17 Glimepiride [amaRYL] 1 tab PO BID 04/26/17 07/22/17 Meclizine [Meclizine*] 1 tab PO BID PRN 04/26/17 07/22/17 Lipase/Protease/Amylase [Zenpep 1 ecc PO AC 07/22/17 07/22/17 [id number]] Review of Systems - Physician Review All systems were reviewed & negative as marked: Yes - Review of Systems Respiratory: absent: SOB Cardiovascular: absent: Chest Pain Neurological: Speech Changes, Other (receptive aphasia) Physical Exam Vital Signs Reviewed: Yes Vital Signs Temp Pulse Resp BP Pulse Ox 07/22/17 13:13 79 18 144/82 97 07/22/17 12:28 96 H 16 137/81 96 07/22/17 11:17 98.3 F 84 21 139/76 97 07/22/17 10:30 98.2 F 77 18 140/82 99 Temperature: Afebrile Blood Pressure: Normal Pulse: Regular Respiratory Rate: Normal Appearance: Positive for: Well-Appearing, Non-Toxic, Comfortable Pain Distress: None Mental Status: Positive for: Alert and Oriented X 3 - Systems Exam Head: Present: Atraumatic, Normocephalic Pupils: Present: PERRL Extroacular Muscles: Present: EOMI Conjunctiva: Present: Normal Respiratory/Chest: Present: Clear to Auscultation, Good Air Exchange. No: Respiratory Distress, Accessory Muscle Use, Wheezes, Rales, Rhonchi Cardiovascular: Present: Regular Rate and Rhythm, Normal S1, S2. No: Murmurs Neurological: Present: GCS=15, CN II-XII Intact, Speech Normal, Normal Sensory Function, Other (receptive aphasia ). No: Memory Normal Skin: Present: Warm, Dry, Normal Color. No: Rashes Psychiatric: Present: Alert. 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 Plan: -- CT Head/neck -- EKG -- Labs -- Chest X-ray -- Sodium Chloride -- Urinalysis -- Reassess and disposition Progress Notes: 07/22/2017 CODE STROKE: called at 10:50 07/22/17 11:10 EKG: Ordered, reviewed, and independently interpreted the EKG. Rate : 77 BPM Rhythm : NSR Interpretation : No ST-segment elevations or depressions, no T-wave inversions, normal intervals. Comparison : No previous EKG for comparison. 07/22/17 13:[address]: Creator : Nelsy Dunn MD COMPARISON:Noncontrast head CT from 03/18/2017. MRI brain without contrast from 03/19/2017. FINDINGS: HEMORRHAGE: No intracranial hemorrhage. BRAIN: Again seen is cystic encephalomalacia with old petechial hemorrhage in the right occipital lobe. There is an old infarction in the left frontal lobe. There are old infarctions in the right cerebellar hemisphere. There is an old lacunar infarction in the right basal ganglia. There are mild chronic microangiopathic changes. There is no mass, mass effect or abnormal extra- axial fluid collection. VENTRICLES: There is moderate age-related global parenchymal volume loss and proportionate enlargement of the ventricles and cortical sulci. CALVARIUM: The skull base and calvarium are normal. PARANASAL SINUSES: There is a large retention cyst/ polyp in the right maxillary sinus and severe mucosal thickening in the left posterior ethmoid air cells and mild mucosal thickening in the left inferior frontal sinus. MASTOID AIR CELLS: Predominantly clear. OTHER FINDINGS: None. IMPRESSION: 1. No acute intracranial abnormality. If there is a persistent focal neurologic deficit and an ongoing clinical concern for acute infarction, an MRI of the brain without intravenous contrast would be a more sensitive modality for evaluation of hyperacute/acute ischemic infarction. 2. Old infarctions in the right CAREERS COUNSELLOR, right PICA and left MCA territorries. 3. Mild chronic microangiopathic changes and moderate age-related global parenchymal volume loss. Important findings were discussed with Dr. Shan Angel on 2017 at 11:15 a.m. 07/22/17 18:03 case discusse dwinatalio kramer stroke, not tpa candidate as wake up symptoms. symptoms resolvied in er. asa 81 mg given. accepted by dr brown. - Lab Interpretations Lab Results: 07/22/17 11:09 07/22/17 11:09 Lab Results 07/22/17 11:09: Blood Type O POSITIVE, Antibody Screen Negative, BBK History Checked Patient has bt 07/22/17 11:09: Hemoglobin A1c 6.9 H 07/22/17 11:09: Sodium 142, Potassium 4.1, Chloride 101, Carbon Dioxide 25, Anion Gap 20, BUN 24 H, Creatinine 1.2, Est GFR ( Amer) 52, Est GFR (Non- Af Amer) 43, Random Glucose 170 H, Calcium 9.6, Total Bilirubin 0.2, AST 23, ALT 22, Alkaline Phosphatase 70, Troponin I 0.03 D, Total Protein 7.4, Albumin 4.3, Globulin 3.1, Albumin/Globulin Ratio 1.4, Triglycerides 476 H, Cholesterol 168, LDL Cholesterol Direct 54, HDL Cholesterol 34 07/22/17 11:09: PT 12.1, INR 1.05, APTT 32.3 07/22/17 11:09: WBC 9.5, RBC 3.37 L, Hgb 10.1 L, Hct 30.6 L, MCV 90.8, MCH 30.0 , MCHC 33.0, RDW 15.3 H, Plt Count 180, MPV 9.8, Gran % 74.7 H, Lymph % (Auto) 15.9 L, [place] % (Auto) 5.9, Eos % (Auto) 3.1, Baso % (Auto) 0.4, Gran # 7.07 H, Lymph # (Auto) 1.5, [place] # (Auto) 0.6, Eos # (Auto) 0.3, Baso # (Auto) 0.04 I have reviewed the lab results: Yes - RAD Interpretation Radiology Orders: 07/22/17 10:51 CTA HEAD/NECK CODE STROKE [CT] Stat HEAD W/O (CODE STROKE) [CT] Stat CHEST PORTABLE [RAD] Stat Stamping Bench Die Maker: Radiologist - EKG Interpretation Interpreted by ED Physician: Yes Type: 12 lead EKG - Medication Orders Current Medication Orders: Atorvastatin Calcium (Lipitor) 10 mg PO DIN NIDIA Clopidogrel Bisulfate (Plavix) 75 mg PO DAILY NIDIA Fenofibrate (Tricor) 145 mg PO DAILY NIDIA Folic Acid (Folic Acid) 1 mg PO DAILY NIDIA Furosemide (Lasix) 40 mg PO TID [facility] Last Admin: 07/22/17 18:30 Dose: 40 mg MAR Blood Pressure Document 07/22/17 18:30 KAA (Rec: 07/22/17 18:30 [place] [id number]) Blood Pressure Blood Pressure (100/60-150/90) 142/74 Gabapentin (Neurontin) 300 mg PO TID [facility] PRN Reason: Protocol Last Admin: 07/22/17 18:30 Dose: 300 mg Behavioural Document 07/22/17 18:30 KAA (Rec: 07/22/17 18:31 [place] [id number]) Maintenance Maintenance Dose Yes Nonmedicinal Nonmedicinal Interventions Therapeutic Communication Re-Assess: Reassess Psych Meds Document 07/22/17 19:30 FC (Rec: 07/22/17 20:53 FC [id number]) Reassess Psych Med Effective Glimepiride (Amaryl) 1 mg PO BID NIDIA Hydrocortisone (Anusol-Hc) 30 gm TOP BID PRN PRN Reason: Constipation Sodium Chloride (Sodium Chloride 0.9%) 1,000 mls @ 30 mls/hr IV .Q24H [facility] Last Admin: 07/22/17 18:32 Dose: 30 mls/hr eMAR Start Stop Document 07/22/17 18:32 KA (Rec: 07/22/17 18:32 [id number]) Intravenous Solution Start Date 07/22/17 Start Time 18:32 Insulin Human Regular (Humulin R Med) 0 units SC ACHS NIDIA PRN Reason: Protocol Last Admin: 07/22/17 22:10 Dose: Not Given Non-Admin Reason: Blood Sugar Parameter MAR Blood Glucose Document 07/22/17 22:10 FC (Rec: 07/22/17 22:10 FC [id number]) Blood Glucose Finger Stick Blood Glucose (70-120) 163 Levothyroxine Sodium (Synthroid) 25 mcg PO DAILY NIDIA Meclizine HCl (Antivert) 25 mg PO BID PRN PRN Reason: Dizziness Metformin HCl (Glucophage) 1,000 mg PO BID NIDIA Last Admin: 07/22/17 18:30 Dose: 1,000 mg Potassium Chloride (K-Dur 20 Meq Er Tab) 20 meq PO DAILY NIDIA Discontinued Medications Aspirin (Aspirin Chewable) 81 mg PO STAT STA Stop: 07/22/17 11:35 Last Admin: 07/22/17 12:01 Dose: 81 mg Sodium Chloride (Sodium Chloride 0.9%) 1,000 mls @ 100 mls/hr IV .Q10H [facility] Last Admin: 07/22/17 11:15 Dose: 100 mls/hr eMAR Start Stop Document 07/22/17 11:15 OCS (Rec: 07/22/17 12:02 OCS [id number]) Intravenous Solution Start Date 07/22/17 Start Time 11:15 Non-Formulary Medication (Kuzel-0-Antd Ethyl Esters [Mayo 3]) 1 tab PO BID [facility] Last Admin: 07/22/17 18:23 Dose: Pneumococcal Polyvalent Vaccine (Pneumovax 23 Vaccine) 0.5 ml IM .ONCE ONE Stop: 07/22/17 17:57 NIHSS Scale ([place]) Time Performed: 12:05 - How Severe is the Stoke Baseline Level of Consciousness: 0=Alert LOC to Questions: 1=One correct LOC to commands: 0=Obeys both correctly Best Gaze: 0=Normal Visual: 0=No visual loss Facial: 0=Normal Motor Arm - Left: 0=No drift Motor Arm - Right: 0=No drift Motor Leg - Left: 0=No drift Motor Leg - Right: 0=No drift Limb Ataxia: 0=Absent Sensory: 0=Normal Best Language: 1=Mild to moderate aphasia Dysarthia: 0=Normal articulation Extinction & Inattention (Neglect): 0=Normal, no object Score: 2 Risk Level: Minor Stroke Risk rTPA Inclusion/Exclusion - Refusal of Treatment Patient Refused Treatment: No - Inclusion Criteria for Altepase Patient is 18 years or Older: Yes The Clinical Diagnosis of Ischemic Stroke That is Causing a Potentially Disabling Neurological Deficit: No Time of Onset is Well Established to be Less Than 270 Minute Before Treatment Would Begin: No Risk/Benefit Discussed With Patient/Family Member Present: Yes - Scribe Statement The provider has reviewed the documentation as recorded by the Donatoibe Fannie Diaz Provider Scribe Attestation: All medical record entries made by the Scribe were at my direction and personally dictated by me. I have reviewed the chart and agree that the record accurately reflects my personal performance of the history, physical exam, medical decision making, and the department course for this patient. I have also personally directed, reviewed, and agree with the discharge instructions and disposition. Disposition/Present on Arrival - Present on Arrival Any Indicators Present on Arrival: No History of DVT/PE: No History of Uncontrolled Diabetes: No Urinary Catheter: No History of Decub. Ulcer: No History Surgical Site Infection Following: None - Disposition Have Diagnosis and Disposition been Completed?: Yes Diagnosis: CVA (cerebral vascular accident) Disposition: HOSPITALIZED Disposition Time: 08:34 Patient Problems: Current Active Problems Problem Status Onset CVA (cerebral vascular accident) Acute Condition: FAIR
[2017-07-22] MEDS ORDERED: Sodium Chloride 0.9% 1,000 ML IV SCH ×2 (11:00→17:52)
[2017-07-22] MEDS ORDERED: Iodixanol 320 mg/ml 150 ml Bottle IV ONE (11:02)
--- NOTE | 2017-07-22 11:17 | CT ---
PROCEDURE: CT HEAD WITHOUT CONTRAST. HISTORY: Code Stroke COMPARISON: Noncontrast head CT from 03/18/2017. MRI brain without contrast from 03/19/2017. TECHNIQUE: Axial computed tomography images were obtained through the head/brain without intravenous contrast. Radiation dose: Total exam DLP = 854.51 mGy-cm. This CT exam was performed using one or more of the following dose reduction techniques: Automated exposure control, adjustment of the mA and/or kV according to patient size, and/or use of iterative reconstruction technique. FINDINGS: HEMORRHAGE: No intracranial hemorrhage. BRAIN: Again seen is cystic encephalomalacia with old petechial hemorrhage in the right occipital lobe. There is an old infarction in the left frontal lobe. There are old infarctions in the right cerebellar hemisphere. There is an old lacunar infarction in the right basal ganglia. There are mild chronic microangiopathic changes. There is no mass, mass effect or abnormal extra-axial fluid collection. VENTRICLES: There is moderate age-related global parenchymal volume loss and proportionate enlargement of the ventricles and cortical sulci. CALVARIUM: The skull base and calvarium are normal. PARANASAL SINUSES: There is a large retention cyst/ polyp in the right maxillary sinus and severe mucosal thickening in the left posterior ethmoid air cells and mild mucosal thickening in the left inferior frontal sinus. MASTOID AIR CELLS: Predominantly clear. OTHER FINDINGS: None. IMPRESSION: 1. No acute intracranial abnormality. If there is a persistent focal neurologic deficit and an ongoing clinical concern for acute infarction, an MRI of the brain without intravenous contrast would be a more sensitive modality for evaluation of hyperacute/acute ischemic infarction. 2. Old infarctions in the right FLEET ADMINISTRATOR, right PICA and left MCA territorries. 3. Mild chronic microangiopathic changes and moderate age-related global parenchymal volume loss. Important findings were discussed with Dr. Shan Angel on 07/22/2017 at 11:15 a.m.
--- NOTE | 2017-07-22 11:27 | RAD ---
HISTORY: Code Stroke COMPARISON: 04/26/2017. FINDINGS: LUNGS: The lungs are well inflated and clear. PLEURA: No significant pleural effusion identified, no pneumothorax apparent. CARDIOVASCULAR: Normal. OSSEOUS STRUCTURES: No significant abnormalities. VISUALIZED UPPER ABDOMEN: Normal. OTHER FINDINGS: None. IMPRESSION: No active pulmonary disease.
[2017-07-22 11:32] LABS: BASO # 0.04 K/mm3 (0.0-2.0); BASO % 0.4 % (0.0-3.0); EOS # 0.3 (0.0-0.7); EOS % 3.1 % (1.5-5.0); GRAN # 7.07 (1.4-6.5); GRAN % 74.7 % (50.0-68.0); HEMOGLOBIN 10.1 g/dL (12.0-16.0); LYMPH # 1.5 (1.2-3.4); LYMPH % 15.9 % (22.0-35.0); MEAN CELL VOLUME 90.8 fl (80.0-105.0); MEAN PLATELET VOLUME 9.8 fl (7.0-11.0); MONO # 0.6 (0.1-0.6); MONO % 5.9 % (1.0-6.0); RBC 3.37 10^6/uL (3.5-6.1); RED CELL DISTRIBUTION WIDTH 15.3 % (11.5-14.5); WHITE BLOOD COUNT 9.5 10^3/ul (4.5-11.0)
[2017-07-22 11:34] LABS: ALB/GLOB RATIO 1.4 (1.1-1.8); ALBUMIN 4.3 g/dL (3.0-4.8); CALCIUM 9.6 mg/dL (8.4-10.5)
--- NOTE | 2017-07-22 11:37 | CT ---
PROCEDURE: CTA HEAD AND NECK WITH CONTRAST HISTORY: code stroke COMPARISON: Noncontrast head CT from 07/22/2017 and MRI brain without contrast from 03/19/2017. TECHNIQUE: Initial noncontrast head CT was performed. Subsequently, CT angiogram of the head and neck were performed after the intravenous administration of 80 mL of Omnipaque 350. Contiguous 1.5mm thick images were obtained in the axial plane of the neck. 2-D coronal and sagittal MPR images were obtained. Imaging postprocessing was performed with 3-D images also obtained. A delayed contrast head CT was also obtained. This CT exam was performed using one or more of the following dose reduction techniques: Automated exposure control, adjustment of the mA and/or kV according to patient size, and/or use of iterative reconstruction technique. Contrast dose: 150 mL Visipaque 320 Radiation dose: Total exam DLP = 713.68 mGy-cm. FINDINGS: HEAD: Right: The intracranial internal carotid artery, and anterior and middle cerebral arteries are widely patent. Left: The intracranial internal carotid artery, and anterior and middle cerebral arteries are widely patent. Posterior circulation: The visualized intracranial vertebral arteries, basilar artery and posterior cerebral arteries are widely patent. The right vertebral artery is dominant, an anatomic variant with Ther is no endoluminal filling defect to suggest thrombus. There is no intracranial saccular aneurysm. NECK: There is a three vessel aortic arch. There is no stenosis at the origins of the great vessels at the level of the aortic arch. There is retropharyngeal course of internal carotid arteries and carotid bifurcations, an anatomic variant. Right Carotid: On the right, the common carotid, internal carotid and external carotid arteries are widely patent. There is no hemodynamically significant stenosis in the internal carotid artery by NASCET criteria. Left Carotid: On the left, the common carotid, internal carotid and external carotid arteries are widely patent. There is no hemodynamically significant stenosis in the internal carotid artery by NASCET criteria. The vertebral arteries are widely patent. The right vertebral artery is dominant, an anatomic variant. The visualized soft tissues of the neck are normal. The visualized brain and cervical spine are within normal limits. The lung apices are clear. Multinodular thyroid gland. IMPRESSION: No evidence of occlusion, endoluminal thrombus or hemodynamically significant stenosis in the internal carotid arteries by NASCET criteria. Essentially normal CT of the head and neck. Multinodular thyroid gland, if not already performed, dedicated thyroid ultrasound on a non emergent basis is recommended for complete evaluation of the thyroid gland.
[2017-07-22 11:48] LABS: TROPONIN I 0.03 ng/mL
[2017-07-22 12:00] LABS: INR 1.05 (0.93-1.08); PARTIAL THROMBOPLASTIN TIME 32.3 Seconds (25.1-36.5); PROTHROMBIN TIME 12.1 SECONDS (9.4-12.5)
[2017-07-22 13:21] LABS: PH,URINE 5.5 (4.7-8.0); URINE BILIRUBIN NEGATIVE (NEGATIVE); URINE BLOOD NEGATIVE (NEGATIVE); URINE GLUCOSE (UA) NEGATIVE (NEGATIVE); URINE LEUKOCYTE ESTERASE NEGATIVE Leu/uL (NEGATIVE); URINE PROTEIN NEGATIVE mg/dL (<30 mg/dL); URINE UROBILINOGEN 0.2 E.U./dL (<1 E.U./dL)
[2017-07-22 13:24] LABS: URINE APPEARANCE CLEAR (CLEAR); URINE COLOR YELLOW (YELLOW)
[2017-07-22] MEDS ORDERED: Hydrocortisone 2.5% Rectal Cream(30 gm) TOP PRN (17:50)
[2017-07-22] MEDS ORDERED: Pneumococcal 23-Valent Vaccine IM ONE (17:56)
[2017-07-22] MEDS ORDERED: OMEGA ACID ETHYL ESTERS PO SCH (18:00)
--- NOTE | 2017-07-22 20:26 | CARD ---
APPROVED REPORT EKG Measurement Heart [id number] PA [id number] <Conclusion> Sinus rhythm with 1st degree AV block with premature supraventricular complexes Minimal voltage criteria for LVH, may be normal variant Borderline ECG
--- NOTE | 2017-07-22 21:28 | MRI ---
EXAM: MR Head Without Intravenous Contrast CLINICAL HISTORY: 82 years old, female; Signs and symptoms; Syncope and collapse; Additional info: AMS, R/O CVA TECHNIQUE: Magnetic resonance images of the head/brain without intravenous contrast in multiple planes. COMPARISON: MR - BRAIN WITHOUT CONTRAST 2017-03-19 11:35 FINDINGS: Brain: Moderate atrophy. No intracranial hemorrhage. No mass. Mild encephalomalacia within right occipital region. Minimal encephalomalacia within left posterior frontal region. Scattered foci of high T2 to signal within periventricular and subcortical white matter. Few scattered punctate foci of resected diffusion within right parietal, left parietal, left occipital, right cerebellar regions. Serpentine linear restricted diffusion within right occipital region about encephalomalacia. Ventricles: No hydrocephalus. Bones/joints: No acute fracture. Sinuses: Scattered minimal mucosal thickening. RIGHT maxillary retention cyst. Mastoid air cells: No significant mastoid effusion. Orbits: Unremarkable as visualized. IMPRESSION: 1. Scattered acute lacunar infarcts. More focal acute infarct within right occipital region. 2. Chronic ischemic white matter changes. 3. Incidental/non-acute findings are described above.
[2017-07-22] MEDS: Insulin Reg-MEDIUM-Coverage SC SCH (22:10)
--- NOTE | 2017-07-22 22:40 | CON ---
DATE: 07/22/2017 CARDIOLOGY CONSULTATION HISTORY OF PRESENT ILLNESS: Patient is an 82-year-old woman who presents with transient dysarthria today. The patient's past medical history includes prior stroke, diabetes mellitus, hypertension. She denies chest pain, denies shortness of breath. She was placed on Plavix in the past because of thoughts of peripheral vascular disease. Currently, the patient still has some dysarthria, which is which has not been completely cleared up. SOCIAL HISTORY: Denies smoking. REVIEW OF SYSTEMS: Fourteen-point review of systems was reviewed in detail. No angina, no dyspnea. No edema in the lower extremities. No loss of consciousness. No history of syncope. No PND, no orthopnea. PHYSICAL EXAMINATION: GENERAL: The patient is in no acute distress. VITAL SIGNS: Blood pressure is 144/82, the heart rate is in the 80s. NECK: Negative JVD. LUNGS: Without rales. HEART: Reveals a 3/6 systolic ejection murmur at the base of the heart. EXTREMITIES: Without clubbing, cyanosis, or edema. LABORATORY DATA: Hemoglobin is 10.1. Chemistries: BUN and creatinine are unremarkable. Troponin is 0.03. CTA of the neck reveals no significant carotid disease. EKG reveals first-degree heart block with no acute changes. IMPRESSION: 1. Transient dysarthria. 2. History of cerebrovascular accident in the past. 3. Diabetes mellitus. 4. Hypertension. 5. Hypercholesterolemia. 6. Transient ischemic attack. 7. Aortic valve stenosis versus sclerosis. Given these findings, the patient will be on classroom monitor for the next 24 hours. We will order an echocardiogram to evaluate her LV function as well as her heart valve. Manish Hamm MD
--- NOTE | 2017-07-23 03:15 | HP ---
HISTORY OF PRESENT ILLNESS: I know Betsy very well from the house calls on her for many years. She is a nice 82-year-old female who presented to the emergency room with confusion, accompanied by her daughter, not finishing her sentences and at this time, I asked her to tell me who I am, but she cannot come out with my name. PAST MEDICAL HISTORY: She has a past medical history of hypertension, CHF, CVA, TIA, diabetes and is mildly confused, but can answer some questions, has some expressive aphasia. She has CHF, hypertension, bronchitis history, CVA, TIA in the past. Wears glasses. Had cataract surgery, glaucoma, type 2 diabetes, hypothyroidism, irritable bowel syndrome, urinary tract issues with frequent urination, appendectomy, cholecystectomy. SOCIAL HISTORY: No smoking. No alcohol. No drugs. FAMILY HISTORY: Hypertension and diabetes in the family. ALLERGIES: HYDROMORPHONE AND TRAMADOL. MEDICATIONS: She is on Plavix, Lasix, Glucophage, Synthroid, vitamin B12, omega-3, potassium, folic acid, Amaryl, meclizine and lipase. REVIEW OF SYSTEMS: No acute vision or hearing changes. No sore throat, cannot express well. No chest pain or palpitations. No shortness of breath or cough. No abdominal pain, nausea, vomiting, constipation, diarrhea. She has receptive aphasia, some expressive aphasia. Skin, for the most part, is intact. PHYSICAL EXAMINATION: VITAL SIGNS: She has 98.3 temperature, 96 pulse, 16 respiratory rate, 137/81 blood pressure, 96% O2 sat on room air. HEENT: Head is atraumatic, normocephalic. She is well appearing, little bit confused and concerned. Alert and oriented x3. Extraocular muscles are intact. Pupils equal and reactive to light and accommodation. Throat is moist. NECK: Supple. HEART: Regular rate. Normal S1, S2. LUNGS: Decreased breath sounds, but clear to auscultation bilaterally. No wheezes, no rhonchi. No rales. ABDOMEN: Soft, nontender. Positive bowel sounds. No guarding, no rebound, no CVA tenderness. NEUROLOGIC: GCS is 15. Cranial nerves II through XII are grossly intact. Normal speech, but neurologically, she cannot understand; while I asked to her who I am, she cannot express my name, but she tells me she knows who I am. Memory is fair. SKIN: Warm and dry. Thyroid nonpalpable, centered. LABORATORY DATA: She had multiple tests. She has a urine that is clean. 142 sodium, potassium 4.1, BUN 24, creatinine 1.2, GFR is 43, sugar is 178. Hemoglobin A1c is 6.9, calcium is 9.6, total bili is 0.2, AST is 23, ALT is 22, alk phos is with troponin I of 0.03, total protein 7.4, albumin is 4.3, globulin 3.1, triglycerides of 476, cholesterol is 168, LDL is 64, 1.05 INR. She has a 9.5 white count, 10.1 hemoglobin, 30.6 hematocrit with 180 platelets. CAT scan of the head and head and neck CTA were okay. Chest x-ray was okay. Waiting for an MRI. She clearly has something going on, whether it is TIA a complete stroke, awaiting on that. She has been on her medications. She had got aspirin already, neurological consult with Dr. Nguyen, Cardiology consult. We will continue with aggressive treatment and care options as ordered, physical therapy is ordered. IV fluids. IMPRESSION: She is here with change in mentation and expressive aphasia, rule out cerebrovascular accident. She is in observation. Dante March DO MTDD
[2017-07-23 06:28] LABS: HEMOGLOBIN 9.6 g/dL (12.0-16.0); MEAN CELL VOLUME 90.4 fl (80.0-105.0); MEAN CORPUSCULAR HEMOGLOBIN 30.7 pg (25.0-35.0); MEAN CORPUSCULAR HGB CONC 33.9 g/dl (31.0-37.0); MEAN PLATELET VOLUME 9.8 fl (7.0-11.0); RBC 3.13 10^6/uL (3.5-6.1); RED CELL DISTRIBUTION WIDTH 15.3 % (11.5-14.5); WHITE BLOOD COUNT 6.7 10^3/ul (4.5-11.0)
[2017-07-23 07:04] LABS: ALB/GLOB RATIO 1.2 (1.1-1.8); ALBUMIN 3.8 g/dL (3.0-4.8); CALCIUM 9.3 mg/dL (8.4-10.5)
[2017-07-23 08:18] VITALS: PULSE 68; RESP 20; TEMP 98.5; O2SAT 96
[2017-07-23] MEDS ORDERED: Levothyroxine 25 MCG TAB PO SCH (10:00)
[2017-07-23] MEDS ORDERED: Potassium Chloride 20 mEq ER Tab PO SCH (10:00)
[2017-07-23] MEDS: Insulin Reg-MEDIUM-Coverage SC SCH (10:25)
--- NOTE | 2017-07-23 10:37 | CON ---
DATE: 07/23/2017 NEUROLOGY CONSULT CHIEF COMPLAINT: Altered mental status. HISTORY OF PRESENT ILLNESS: This is an 82-year-old woman with past medical history of hypertension, CHF, CVA, history of CVA in the right occipital region in the past, history of type 2 diabetes mellitus, history of diabetic peripheral neuropathy, who came in to the hospital because of her daughter was complaining that she has been confused and not finishing her sentences and was dysarthric and her speech was not making any sense. There was no focal weakness on the extremities except for some mild left finger tap slowing compared to the right. She underwent an MRI of the brain, which showed scattered acute lacunar infarcts especially in the right parietal, left parietal and left occipital and right cerebellar regions, superimposed underlying encephalomalacia in the right occipital region, which most likely seems embolic in nature. Her CT angio of the neck shows no significant hemodynamic stenosis. Currently, she is sitting up and doing well. Her speech is much better. She is back to her baseline. Blood pressures are stable. She was on Plavix before. ALLERGIES: ALLERGIC TO HYDROMORPHONE AND TRAMADOL. REVIEW OF SYSTEMS: Fourteen-point review of systems is negative except for the HPI. PAST MEDICAL HISTORY: Significant for the old right occipital infarct, CHF, TIA, diabetes, diabetic peripheral neuropathy. MEDICATIONS: Reviewed by nurses' reconciliation sheet. SOCIAL HISTORY: No illicit drug use, smoking or EtOH abuse. PHYSICAL EXAMINATION: VITAL SIGNS: Temperature 98.5, pulse rate 68, blood pressure 124/56, respiratory rate of 20, oxygen saturation 96%. GENERAL: The patient is sitting up in the chair, in no acute distress. HEENT: Atraumatic, normocephalic. PERRLA. Extraocular muscles intact. NECK: Supple. No JVD. No adenopathy noted. LUNGS: Clear to auscultation. No adventitious sounds. HEART: S1 and S2. Normal rate and rhythm. No murmurs, rubs or gallops. ABDOMEN: Soft, nontender and nondistended. Bowel sounds are present. EXTREMITIES: No clubbing. No cyanosis. Peripheral pulses are 2+ felt bilaterally. NEUROLOGIC: The patient is alert and oriented to person, place, month and year. Speech is fluent except for mild dysarthria. No aphasia noted. Cranial nerves II through XII intact. Motor exam: Moves all extremities equally. Mild reduced left finger tap, sort of weakness when compared to the right. Sensory exam: Decreased light touch and pinprick up to the calves bilaterally. Decreased vibration of the toes. DTRs are 2+ throughout and 1 at the ankles. Coordination: [id number] intact. No dysmetria noted. Gait is deferred for now. LABORATORY DATA: Sodium is 138, potassium 3.6, chloride 101, carbon dioxide 28, BUN of 19, creatinine 1.1, random glucose of 143. A1c 6.9, triglycerides 476, LDL is 54. ASSESSMENT AND PLAN: This is an 82-year-old woman with history of old right occipital infarct, cerebrovascular accident, transient ischemic attack, congestive heart failure, diabetes, also has evidence of diabetic peripheral neuropathy on neurologic exam, who presented with change in altered mental status in terms of being confused, could not finish her sentences and has some dysarthria. She was found to have scattered acute lacunar infarcts in the right parietal, left parietal, left occipital and right cerebellar regions superimposed underlying old right occipital stroke, which is all consistent with an embolic phenomena. At this time, recommend, 1. A 2D echocardiogram. 2. Given that it is an embolic in nature, we will consider Eliquis 2.5 mg p.o. b.i.d. plus baby aspirin of 81 mg plus Lipitor 40 for stroke prevention. 3. PT/OT evaluation. 4. Follow up with Cardiology's recommendations in regards to the embolic phenomena and continue with current present medical management. Thank you for this consult. Chai Nguyen MD
[2017-07-23 10:39] VITALS: BP 130/60
--- NOTE | 2017-07-23 16:15 | PN ---
DATE: 07/23/2017 CARDIOLOGY FOLLOWUP SUBJECTIVE: The patient is now distressed. PHYSICAL EXAMINATION: VITAL SIGNS: Blood pressure is 130/60, heart rate is in the 60s. NECK: Negative JVD. LUNGS: Without rales. HEART: Reveals 3/6 systolic ejection murmur. EXTREMITIES: Without edema. LABORATORY DATA: Preliminary echocardiogram reveals mild aortic stenosis with the valve area of 1.2 to 1.4. Hemoglobin is 9.6. BUN and creatinine is 19 and 1.9 with a glucose 143. IMPRESSION: 1. Transient ischemic attack. 2. History of cerebrovascular accident in the past. 3. Mild aortic stenosis. 4. Hypertension. 5. Diabetes mellitus. PLAN: Given these findings, I agree with Neuro's evaluation. There is no intrinsic cardiac cause of her dizziness. Manish Hamm MD
--- NOTE | 2017-07-23 20:59 | CARD ---
APPROVED REPORT EXAM: Two-dimensional and M-mode echocardiogram with Doppler and color Doppler. INDICATION CVA/TIA Aortic Valve Disease 2D DIMENSIONS IVSd1.1 (0.7-1.1cm)LVDd4.6 (3.9-5.9cm) LVOT Diameter2.0 (1.8-2.4cm)PWd1.2 (0.7-1.1cm) LVDs3.2 (2.5-4.0cm)FS (%) 29.4 % LVEF (%)56.4 (>50%) M-Mode DIMENSIONS Aortic Root2.80 (2.2-3.7cm)Aortic Cusp Exc.0.70 (1.5-2.0cm) Aortic Valve AoV Peak Ohhjehrf983.0cm/sAoV VTI54.8cmAO Peak GR.32mmHg LVOT Peak Buwntwlc632.0cm/sLVOT VTI23.60cmAO Mean GR.16mmHg JEANNINE (VMAX)1.12js8UHN (VTI)1.35cm2 Mitral Valve MV E Vjzaowna35.5cm/sMV A Eoyeaexz634.0cm/sE/A ratio0.8 TDI E/Lateral E'0.0E/Medial E'0.0 Tricuspid Valve TR Peak Fcbneonf507ys/sRAP [id number] Peak Gr.29mmHg SYBO66epHu LEFT VENTRICLE The left ventricle is normal size. There is normal left ventricular wall thickness. The left ventricular function is normal. The left ventricular ejection fraction is within the normal range. There is normal LV segmental wall motion. Transmitral Doppler flow pattern is Grade I-abnormal relaxation pattern. RIGHT VENTRICLE The right ventricle is normal size. There is normal right ventricular wall thickness. The right ventricular systolic function is normal. ATRIA The left atrium size is normal. The right atrium size is normal. AORTIC VALVE The aortic valve is moderately sclerotic. No aortic regurgitation is present. There is moderate valvular aortic stenosis. MITRAL VALVE The mitral valve is moderately thickened. There is no mitral valve regurgitation noted. There is no mitral valve stenosis. TRICUSPID VALVE There is mild pulmonary hypertension. GREAT VESSELS The aortic root is normal in size. PERICARDIAL EFFUSION There is a trace circumferential pericardial effusion. <Conclusion> The left ventricle is normal size. There is normal left ventricular wall thickness. The left ventricular function is normal. The left ventricular ejection fraction is within the normal range. There is normal LV segmental wall motion. Transmitral Doppler flow pattern is Grade I-abnormal relaxation pattern. There is moderate valvular aortic stenosis. There is mild pulmonary hypertension.
--- NOTE | 2017-07-24 07:57 | DS ---
HISTORY OF PRESENT ILLNESS: I saw her sitting out of bed to chair this morning, eating her breakfast. She is much more alert. She knew me right away. Yesterday, she could not figure out who I was. She feels as much better than when she came in. She is in better spirits. She had expressive aphasia, change in mentation. She told me when she went out to eat, this happened, but she is doing much better now. Awaiting for Neurology to see her and Physical Therapy to see her. Clinically, she looks better, in no pain. PHYSICAL EXAMINATION: VITAL SIGNS: She has a 98.8 temp, 85 pulse, 130/60 blood pressure, 18 respiratory rate and 100% O2 sat on room air. HEENT: Head is atraumatic, normocephalic. Extraocular muscles are intact. Throat is moist. Tongue midline. NECK: Supple. HEART: Regular rate. LUNGS: Decreased breath sounds, but clear. ABDOMEN: Soft, nontender, positive bowel sounds, obese. EXTREMITIES: No edema. She is able to get up and walk, going for physical therapy, it is unclear how she is doing. MEDICATIONS: She is on Amaryl, Antivert, Anusol, folic acid, Glucophage, insulin, potassium, Lasix, Lipitor, Neurontin, omega, Plavix, IV fluids and Synthroid. LABORATORY DATA: She has a white count of 6.7, hemoglobin 9.6, hematocrit 28.3, platelets of 172. She has a 138 sodium, potassium 3.6, BUN 19, creatinine 1.1, GFR is 48, sugar is 141, calcium is 9.3, total bili is 0.4. AST is 21, ALT is 25, alk phos 66, total protein is 6.9, triglycerides was 476 and cholesterol was 468. PLAN: I am going to add TriCor to her list of medicines because [place] is with the triglycerides. I am hoping after Physical Therapy sees her and Neuro sees her, we can discharge her home with home physical therapy if needed, I am not sure. I do think she has improved since yesterday. Layo March DO [facility] # [id number] MTDD
== END 2017-07-23 13:35 | disposition home or self-care (01) ==
LOC: ED 10:21 → ERH 11:59 → 3RNO 13:51
PROVIDERS: ADMIT Family Medicine; ATTEND Family Medicine
DX: G45.9 Transient cerebral ischemic attack, unspecified (principal); R47.01 Aphasia; R47.1 Dysarthria and anarthria; I35.0 Nonrheumatic aortic (valve) stenosis; R41.82 Altered mental status, unspecified; I11.0 Hypertensive heart disease with heart failure; I50.9 Heart failure, unspecified; E11.42 Type 2 diabetes mellitus with diabetic polyneuropathy; E78.00 Pure hypercholesterolemia, unspecified; R42 Dizziness and giddiness; E03.9 Hypothyroidism, unspecified; H40.9 Unspecified glaucoma; Z79.84 Long term (current) use of oral hypoglycemic drugs; Z79.02 Long term (current) use of antithrombotics/antiplatelets; Z86.73 Personal history of transient ischemic attack (TIA), and cerebral infarction without residual deficits
CPT/HCPCS: 36415; 70450; 70496; 70498; 70551; 71045; 80053; 80061; 81003; 82948; 83036; 84484; 85025; 85027; 85610; 85730; 86850; 86900; 93005; 93306; 97116; 97162; 99285; G0378; G8978; G8979; G8980; J7040

== ENCOUNTER 2018-06-06 20:28 | Emergency (ER) | payer MEDICARE, OTHER ==
[2018-06-06 20:29] VITALS: BMI 36.6
[2018-06-06 20:40] VITALS: TEMP 98.6
--- NOTE | 2018-06-06 20:45 | ED PDOC ---
Arrival/HPI - General Chief Complaint: ENT Problem Time Seen by Provider: 06/06/18 20:36 Historian: Patient - History of Present Illness Narrative History of Present Illness (Text): 06/06/18 20:44 Betsy Pepe is an 83 year old female, whose past medical history includes hypertension, CHF, CVA, TIA, diabetes, hypothyroidism, IBS, appendectomy, and cholecystectomy, who presents to the Emergency department complaining of epist axis. Patient states she has been experiencing a runny nose recently and was wiping her nose when she had sudden onset nose bleeding from the right nostril. Patient applied pressure to the area and notes some clots. Patient denies any fever, chills, headache, dizziness, nausea, vomiting, or any other complaints. Symptom Onset: Sudden Symptom Course: Unchanged Activities at Onset: Light Context: Home Past Medical History - Provider Review Nursing Documentation Reviewed: Yes - Past History Past History: Non-Contributing - Infectious Disease Hx of Infectious Diseases: None - Tetanus Immunization Tetanus Immunization: Unknown - Past Medical History Past Medical History: No Previous - Cardiac Hx Cardiac Disorders: Yes Hx Congestive Heart Failure: Yes Hx Hypertension: Yes - Pulmonary Hx Respiratory Disorders: Yes Hx Bronchitis: Yes - Neurological HX Cerebrovascular Accident: Yes (no deficits) - HEENT Hx HEENT Disorder: Yes (uses glasses) Hx Cataracts: Yes (sx) Hx Glaucoma: Yes - Renal Hx Renal Disorder: No - Endocrine/Metabolic Hx Diabetes Mellitus Type 2: Yes Hx Hypothyroidism: Yes - Hematological/Oncological Hx Blood Transfusions: No - Integumentary Hx Dermatological Disorder: No - Musculoskeletal/Rheumatological Hx Falls: No - Gastrointestinal Hx Gastrointestinal Disorders: Yes (IBS) - Genitourinary/Gynecological Hx Genitourinary Disorders: Yes (frequent urination) - Psychiatric Hx Emotional Abuse: No Hx Physical Abuse: No Hx Substance Use: No - Past Surgical History Past Surgical History: Unable to Obtain - Surgical History Hx Appendectomy: Yes Hx Cholecystectomy: Yes - Anesthesia Hx Anesthesia: Yes Hx Anesthesia Reactions: No Hx Malignant Hyperthermia: No - Suicidal Assessment Feels Threatened In Home Enviroment: No Family/Social History - Physician Review Nursing Documentation Reviewed: Yes Family/Social History: Unknown Family HX Smoking Status: Never Smoked Hx Alcohol Use: No Hx Substance Use: No Hx Substance Use Treatment: No Allergies/Home Meds Allergies/Adverse Reactions: Allergies hydromorphone HCl [From Dilaudid] Allergy (Severe, Verified 06/06/18 20:36) HALLUCINATIONS tramadol Allergy (Severe, Verified 06/06/18 20:36) RASH Home Medications: Home Meds Medication Instructions Recorded Confirmed Clopidogrel [Plavix] 75 mg PO DAILY 10/11/15 06/06/18 Furosemide [Lasix] 40 mg PO TID 10/11/15 06/06/18 metFORMIN [glucOPHAGE] 1,000 mg PO BID 10/11/15 06/06/18 Levothyroxine [Synthroid] 25 mcg PO DAILY 05/29/16 06/06/18 Hmpsf-8-[id number] Ethyl Esters [OMEGA 3] 1 tab PO BID 11/30/16 06/06/18 Potassium Chloride [K-Dur 20 mEq 20 meq PO DAILY 03/18/17 06/06/18 ER Tab] Folic Acid 1 tab PO DAILY 04/26/17 06/06/18 Meclizine [Meclizine*] 1 tab PO BID PRN 04/26/17 06/06/18 Lipase/Protease/Amylase [Zenpep Dr 1 ecc PO AC 07/22/17 06/06/18 15,000 Unit Capsule] Glimepiride [amaRYL] 4 mg PO BID 06/06/18 06/06/18 Review of Systems - Physician Review All systems were reviewed & negative as marked: Yes - Review of Systems Constitutional: Normal. absent: Fevers Eyes: Normal ENT: Epistaxis Respiratory: Normal. absent: SOB, Cough Cardiovascular: Normal. absent: Chest Pain Gastrointestinal: Normal. absent: Abdominal Pain, Diarrhea, Nausea, Vomiting Genitourinary Female: Normal. absent: Dysuria, Frequency, Hematuria, Urine Output Changes Musculoskeletal: Normal. absent: Back Pain, Neck Pain Skin: Normal. absent: Rash Neurological: Normal. absent: Headache, Dizziness Endocrine: Normal Hemo/Lymphatic: Normal Psychiatric: Normal Physical Exam Vital Signs Reviewed: Yes Vital Signs Temp Pulse Resp BP Pulse Ox 06/06/18 20:37 98.6 F 85 18 148/66 100 Temperature: Afebrile Blood Pressure: Normal Pulse: Regular Respiratory Rate: Normal Appearance: Positive for: Well-Appearing, Non-Toxic, Comfortable Pain Distress: None Mental Status: Positive for: Alert and Oriented X 3 - Systems Exam Head: Present: Atraumatic, Normocephalic Pupils: Present: PERRL Extroacular Muscles: Present: EOMI Conjunctiva: Present: Normal Ears: Present: Normal, NORMAL TM, Normal Canal. No: Erythema, TM Bulging, Fluid, TM Perf Mouth: Present: Moist Mucous Membranes Pharnyx: Present: Normal. No: ERYTHEMA, EXUDATE, TONSILS ENLARGED, Peritonsilar Swelling, Uvular Deviation, Muffled/Hoarse Voice, Strider, Soft Palate/Uvular Edema Nose (External): Present: Atraumatic Nose (Internal): Present: Epistaxis (Oozing blood in right anterior nare) Neck: Present: Normal Range of Motion Respiratory/Chest: Present: Clear to Auscultation, Good Air Exchange. No: Respiratory Distress, Accessory Muscle Use Cardiovascular: Present: Regular Rate and Rhythm, Normal S1, S2. No: Murmurs Abdomen: No: Tenderness, Distention, Peritoneal Signs Back: Present: Normal Inspection Upper Extremity: Present: Normal Inspection. No: Cyanosis, Edema Lower Extremity: Present: Normal Inspection. No: Edema Neurological: Present: GCS=15, CN II-XII Intact, Speech Normal Skin: Present: Warm, Dry, Normal Color. No: Rashes Psychiatric: Present: Alert, Oriented x 3, Normal Insight, Normal Concentration Medical Decision Making ED Course and Treatment: 06/06/18 20:44 Impression: 83 year old female complaining of epistaxis from right nostril prior to arrival. Plan: -- Silve Nitrate Cautery -- Reassess and disposition Prior Visits: Notes and results from previous visits were reviewed. Progress Notes: PROCEDURE: EPISTAXIS MANAGEMENT Performed by the emergency provider Consent: Informed consent was obtained after discussion of the risks, benefits, and alternatives to the procedure. Timeout: A timeout to verify the correct patient, procedure, and site was performed immediately prior to the procedure. Indication: Nasal bleeding control Location: right naris Bleeding Source: ANTERIOR Cautery: Silver Nitrate Post-procedure: Slight ooze from right nare, will pack the nare. Patient was observed following procedure and no repeat episode of bleeding was noted. Patient tolerated the procedure well with no immediate complications. 06/06/18 21:13 PROCEDURE: EPISTAXIS MANAGEMENT Performed by the emergency provider Consent: Informed consent was obtained after discussion of the risks, benefits, and alternatives to the procedure. Timeout: A timeout to verify the correct patient, procedure, and site was performed immediately prior to the procedure. Indication: Nasal bleeding control Location: right naris Bleeding Source: ANTERIOR Packing: Petroleum gauze Post-procedure: Good hemostasis. The patient was observed following procedure and no repeat episode of bleeding was noted. Patient tolerated the procedure well with no immediate complications. - Scribe Statement The provider has reviewed the documentation as recorded by the Lucina Tomas Provider Scribe Attestation: All medical record entries made by the Scribe were at my direction and personally dictated by me. I have reviewed the chart and agree that the record accurately reflects my personal performance of the history, physical exam, medical decision making, and the department course for this patient. I have also personally directed, reviewed, and agree with the discharge instructions and disposition. Disposition/Present on Arrival - Present on Arrival Any Indicators Present on Arrival: No History of DVT/PE: No History of Uncontrolled Diabetes: No Urinary Catheter: No History of Decub. Ulcer: No History Surgical Site Infection Following: None - Disposition Have Diagnosis and Disposition been Completed?: Yes Diagnosis: Epistaxis Disposition: HOME/ ROUTINE Disposition Time: 22:56 Patient Plan: Discharge Condition: STABLE Discharge Instructions (ExitCare): Nosebleeds (DC) Additional Instructions: Maintain nasal packing/avoid sneezing /take meds as prescribed/follow up with your ENT Dr.Bastianelli vazquez. Prescriptions: Amoxicillin [Amoxil 500 mg Cap] 500 mg PO TID #21 cap Referrals: Dante March DO [Primary Care Provider] - Follow up with primary Milton Cummings DO [Staff Provider] - Follow up with primary Forms: [employer] (French)
[2018-06-06 22:13] VITALS: BP 121/59; PULSE 78; RESP 16; O2SAT 99
== END 2018-06-06 23:21 | disposition home or self-care (01) ==
LOC: ED 20:28
DX: R04.0 Epistaxis (principal)

== ENCOUNTER 2018-06-21 15:20 | Inpatient (IN) | payer MEDICARE, OTHER ==
[2018-06-21 15:20] VITALS: BMI 36.6
--- NOTE | 2018-06-21 15:40 | ED PDOC ---
Arrival/HPI - General Chief Complaint: Lower Extremity Problem/Injury Time Seen by Provider: 06/21/18 15:30 - History of Present Illness Narrative History of Present Illness (Text): 06/21/18 18:17 83 y/o female with PMH of diabetes sent to the ED by her propeller engineer Dr. Elias for evaluation of left foot 2nd digit ulcer. Pt was cooking 1 week ago, when she spilled hot liquid on her left foot. The next day, she developed a blister on the top of her 2nd digit. Dr. Elias saw patient in her home earlier in the week, and prescribed silver sulfadiazine. Pt thinks she may have been allergic, because she developed worsening redness and pain to the digits since that time. When Dr. Elias saw pt today, he sent her here for admission. Pt has not taken any of her medications today. Denies fevers, chills, nausea, vomiting, diarrhea, dizziness, headache, numbness, weakness, paresthesias, SOB, chest pain, or any other associated symptoms. Past Medical History - Past History Past History: Non-Contributing - Infectious Disease Hx of Infectious Diseases: None - Tetanus Immunization Tetanus Immunization: Unknown - Past Medical History Past Medical History: No Previous - Cardiac Hx Cardiac Disorders: Yes Hx Congestive Heart Failure: Yes Hx Hypertension: Yes - Pulmonary Hx Respiratory Disorders: Yes Hx Bronchitis: Yes - Neurological HX Cerebrovascular Accident: Yes (no deficits) - HEENT Hx HEENT Disorder: Yes (uses glasses) Hx Cataracts: Yes (sx) Hx Glaucoma: Yes - Renal Hx Renal Disorder: No - Endocrine/Metabolic Hx Diabetes Mellitus Type 2: Yes Hx Hypothyroidism: Yes - Hematological/Oncological Hx Blood Transfusions: No - Integumentary Hx Dermatological Disorder: No - Musculoskeletal/Rheumatological Hx Falls: No - Gastrointestinal Hx Gastrointestinal Disorders: Yes (IBS) - Genitourinary/Gynecological Hx Genitourinary Disorders: Yes (frequent urination) - Psychiatric Hx Emotional Abuse: No Hx Physical Abuse: No Hx Substance Use: No - Past Surgical History Past Surgical History: Unable to Obtain - Surgical History Hx Appendectomy: Yes Hx Cholecystectomy: Yes - Anesthesia Hx Anesthesia: Yes Hx Anesthesia Reactions: No Hx Malignant Hyperthermia: No - Suicidal Assessment Feels Threatened In Home Enviroment: No Family/Social History - Physician Review Nursing Documentation Reviewed: Yes Family/Social History: No Known Family HX Smoking Status: Never Smoked Hx Alcohol Use: No Hx Substance Use: No Hx Substance Use Treatment: No Allergies/Home Meds Allergies/Adverse Reactions: Allergies hydromorphone HCl [From Dilaudid] Allergy (Severe, Verified 06/21/18 18:34) HALLUCINATIONS tramadol Allergy (Severe, Verified 06/21/18 18:34) RASH iodine Allergy (Verified 06/21/18 18:34) RASH silver sulfadiazine [From Silvadene] Allergy (Verified 06/21/18 18:34) RASH Home Medications: Home Meds Medication Instructions Recorded Confirmed Clopidogrel [Plavix] 75 mg PO DAILY 10/11/15 06/21/18 Furosemide [Lasix] 40 mg PO TID 10/11/15 06/21/18 metFORMIN [glucOPHAGE] 1,000 mg PO BID 10/11/15 06/21/18 Levothyroxine [Synthroid] 25 mcg PO DAILY 05/29/16 06/21/18 Qvdsl-0-Clze Ethyl Esters [OMEGA 3] 1 tab PO BID 11/30/16 06/21/18 Potassium Chloride [K-Dur 20 mEq 20 meq PO DAILY 03/18/17 06/21/18 ER Tab] Folic Acid 1 tab PO DAILY 04/26/17 06/21/18 Meclizine [Meclizine*] 1 tab PO BID PRN 04/26/17 06/21/18 Lipase/Protease/Amylase [Zenpep Dr 1 ecc PO AC 07/22/17 06/21/18 15,000 Unit Capsule] Glimepiride [amaRYL] 4 mg PO BID 06/06/18 06/21/18 Review of Systems - Physician Review All systems were reviewed & negative as marked: Yes - Review of Systems Constitutional: Normal. absent: Fevers Eyes: Normal. absent: Vision Changes ENT: Normal. absent: Sore Throat, Sinus Congestion Respiratory: Normal. absent: SOB, Cough Cardiovascular: Normal. absent: Chest Pain, Palpitations Gastrointestinal: Normal. absent: Abdominal Pain, Nausea, Vomiting Genitourinary Female: Normal. absent: Dysuria, Frequency Musculoskeletal: Arthralgias. absent: Back Pain, Neck Pain Skin: Ulcer, Cellulitis Neurological: Normal. absent: Headache, Dizziness Endocrine: Normal Hemo/Lymphatic: Normal Psychiatric: Normal Physical Exam Vital Signs Reviewed: Yes Vital Signs Temp Pulse Resp BP Pulse Ox 06/21/18 15:29 97.9 F 82 18 157/65 H 97 Temperature: Afebrile Blood Pressure: Hypertensive Pulse: Regular Respiratory Rate: Normal Appearance: Positive for: Well-Appearing, Non-Toxic, Comfortable Pain Distress: None Mental Status: Positive for: Alert and Oriented X 3 - Systems Exam Head: Present: Atraumatic, Normocephalic Pupils: Present: PERRL Extroacular Muscles: Present: EOMI Conjunctiva: Present: Normal Mouth: Present: Moist Mucous Membranes Neck: Present: Normal Range of Motion Respiratory/Chest: Present: Clear to Auscultation, Good Air Exchange. No: Respiratory Distress, Accessory Muscle Use Cardiovascular: Present: Regular Rate and Rhythm, Normal S1, S2, Peripheal Pulses Present Abdomen: Present: Normal Bowel Sounds. No: Tenderness, Distention, Peritoneal Signs, Rebound, Guarding Back: Present: Normal Inspection. No: CVA Tenderness Upper Extremity: Present: Normal Inspection, Normal ROM, NORMAL PULSES, Neurov ascularly Intact, Capillary Refill < 2s. No: Cyanosis, Edema, Temperature Abnormalties Lower Extremity: Present: Edema (bilateral edema in feet and lower legs), Normal ROM, Tenderness (tenderness to left foot 2nd and 3rd digits), Temperature Abnormalties (warmth to left foot 2nd and 3rd digits), Neurovascularly Intact, Capillary Refill < 2 s. No: Normal Inspection ( left foot dorsal 2nd digit ulceration with blackedned eschar, 3rd digit erythematous), CALF TENDERNESS, NORMAL PULSES (distal pulses 1/2 bilaterally), Deformity Neurological: Present: GCS=15, CN II-XII Intact, Speech Normal, Motor Func Grossly Intact, Normal Sensory Function, Gait Normal Skin: Present: Warm, Dry, Normal Color Psychiatric: Present: Alert, Oriented x 3, Normal Insight, Normal Concentration, Normal Affect, Normal Mood Medical Decision Making ED Course and Treatment: Initial Plan: * CBC, CMP * Coags * ESR * Blood cultures * Wound culture * Left foot XR * Arterial Duplex * Podiatry consult Spoke with podiatry, Dr. Elias, who would like to defer antibiotic choice to Dr. Lester, pending consult and wound culture. States arterial duplex can be ordered routine. Requests ID and Vascular consult. No further recommendations at this time. Podiatry will see patient on the floor. Bloodwork reviewed, significant for glucose of 357. Bicarb normal, no gap. IVF ordered. ESR elevated. Mild anemia, pt with history of anemia. Otherwise unremarkable. 17:[address] March, who accepts patient for inpatient admission to med/surg floor with diagnosis of diabetic ulcer, hyperglycemia. Pt updated Pt in NAD, resting comfortably in stretcher with stable vital signs at this time. - Lab Interpretations Lab Results: 06/21/18 16:00 06/21/18 16:00 Lab Results 06/21/18 16:00: Sodium 137, Potassium 3.9, Chloride 97 L, Carbon Dioxide 27, Anion Gap 16, BUN 27 H, Creatinine 1.3 H, Est GFR ( Amer) 47, Est GFR (Non-Af Amer) 39, Random Glucose 357 H* D, Calcium 9.0, Total Bilirubin 0.3, AST 15, ALT 7, Alkaline Phosphatase 89, Total Protein 7.0, Albumin 3.6, Globulin 3.4, Albumin/Globulin Ratio 1.0 L 06/21/18 16:00: PT 13.8 H, INR 1.24, APTT 40.1 H 06/21/18 16:00: WBC 8.5, RBC 3.32 L, Hgb 9.4 L, Hct 29.4 L, MCV 88.6, MCH 28.3, MCHC 32.0, RDW 15.6 H, Plt Count 163, MPV 10.2, Neut % (Auto) 78.8 H, Lymph % (Auto) 11.0 L, [place] % (Auto) 6.3 H, Eos % (Auto) 3.7, Baso % (Auto) 0.2, Lymph # (Auto) 0.9 L, [place] # (Auto) 0.5, Eos # (Auto) 0.3, Baso # (Auto) 0.02, Absolute Neuts (auto) 6.72 H, ESR 62 H I have reviewed the lab results: Yes - RAD Interpretation Radiology Orders: 06/21/18 15:36 FOOT LEFT 2ND DIGIT (TOE) [RAD] Stat 06/21/18 15:38 DUPLEX LOWER EXT ART BI LMTD [US] Stat Disposition/Present on Arrival - Present on Arrival Any Indicators Present on Arrival: No History of DVT/PE: No History of Uncontrolled Diabetes: No Urinary Catheter: No History of Decub. Ulcer: No History Surgical Site Infection Following: None - Disposition Have Diagnosis and Disposition been Completed?: Yes Diagnosis: Diabetic ulcer of left foot, Hyperglycemia Disposition: HOSPITALIZED Disposition Time: 17:45 Patient Plan: Admission Patient Problems: Current Active Problems Problem Status Onset Diabetic ulcer of left foot Acute Hyperglycemia Acute Condition: STABLE Referrals: Dante March DO [Primary Care Provider] - Follow up with primary
[2018-06-21 16:21] LABS: BASO # 0.02 K/mm3 (0.0-2.0); BASO % 0.2 % (0.0-3.0); EOS # 0.3 (0.0-0.7); EOS % 3.7 % (1.5-5.0); HEMOGLOBIN 9.4 g/dL (12.0-16.0); LYMPH # 0.9 (1.2-3.4); MEAN CELL VOLUME 88.6 fl (80.0-105.0); MEAN CORPUSCULAR HEMOGLOBIN 28.3 pg (25.0-35.0); MEAN PLATELET VOLUME 10.2 fl (7.0-11.0); MONO # 0.5 (0.1-0.6); MONO % 6.3 % (1.0-6.0); RBC 3.32 10^6/uL (3.5-6.1); RED CELL DISTRIBUTION WIDTH 15.6 % (11.5-14.5); WHITE BLOOD COUNT 8.5 10^3/uL (4.5-11.0)
[2018-06-21 16:25] LABS: INR 1.24; PARTIAL THROMBOPLASTIN TIME 40.1 Seconds (26.9-38.3); PROTHROMBIN TIME 13.8 SECONDS (9.4-12.5)
[2018-06-21 16:43] LABS: ALBUMIN 3.6 g/dL (3.0-4.8)
[2018-06-21] MEDS ORDERED: Sodium Chloride 0.9% 500 ML IV STA (16:46)
[2018-06-21] MEDS: Sodium Chloride 0.45% 1,000 ML IV SCH (18:45)
[2018-06-21] MEDS: Insulin Reg-MEDIUM-Coverage SC SCH (22:00)
[2018-06-21] MEDS ORDERED: Influenza Vaccine 60 mcg/0.5 mL SYR (4YR UP) IM ONE (23:02)
[2018-06-21] MEDS ORDERED: Pneumococcal 23-Valent Vaccine IM ONE (23:02)
--- NOTE | 2018-06-22 00:14 | HP ---
DATE OF EXAM: 06/21/2018 HISTORY OF PRESENT ILLNESS: I got a call from Dr. Elias, the face worker who saw her today to followup on a left second toe anterior ulcer, she dropped a headed cabbage on it and is getting worse, it is painful, burning. She is an 83-year-old white female who dropped a headed cabbage on the left second toe and now got an ulcer on it and is painful, so the face worker told her to go to the emergency room, he felt she needs IV antibiotics and in the bone. PAST MEDICAL HISTORY: CHF, hypertension, bronchitis, CVA, cataracts, glaucoma, diabetes, atrial fibrillation, debility, neuropathy, hypothyroid. SOCIAL HISTORY: No smoking. No alcohol. No drugs. FAMILY HISTORY: Hypertension and diabetes in the family. ALLERGIES: SHE IS ALLERGIC TO HYDROMORPHONE AND TRAMADOL. PAST MEDICAL/SURGICAL HISTORY: She had cataract surgery, she also had irritable bowel syndrome, she had urinary tract infection frequent urination, she had appendectomy, she had cholecystectomy. I have been doing house-call on her for years. It is difficult for her to get out of the home. REVIEW OF SYSTEMS: No acute vision or hearing changes. No sore throat. No neck pain. No chest pain or palpitations. No shortness of breath or cough. No abdominal pain, nausea, vomiting, constipation, or diarrhea. PHYSICAL EXAMINATION: EXTREMITIES: Pitting edema +1 to 2 bilaterally. There is a left second toe ulcer anteriorly, looks infected, orders have been put in by Podiatry, has an x-ray done. LABORATORY DATA: Sodium 137, potassium 3.9, BUN 27, and creatinine 1.3. She has little bit of fluid. She has 357 blood sugar from her blood pressure pills. She is also very noncompliant with her diet and I will give her coverage. Calcium 9, total bili 0.3, AST 15, ALT 7, alk phos 89, total protein 7. INR 1.24. White count 5.5, hemoglobin 9.4, hematocrit 29.4, and platelets 163. IMPRESSION AND PLAN: There is a left second toe ulcer that might need to debrided, IV antibiotics, low IV fluids, insulin coverage, and infectious disease evaluation. She is here for left second toe failed outpatient therapy with treatment of ulcer. Also the sed rate is 62, quite high. Dante March DO WAY[facility]
[2018-06-22 07:06] LABS: HEMOGLOBIN 8.5 g/dL (12.0-16.0); MEAN CELL VOLUME 88.2 fl (80.0-105.0); MEAN CORPUSCULAR HEMOGLOBIN 27.9 pg (25.0-35.0); MEAN CORPUSCULAR HGB CONC 31.6 g/dl (31.0-37.0); MEAN PLATELET VOLUME 9.3 fl (7.0-11.0); RBC 3.05 10^6/uL (3.5-6.1); RED CELL DISTRIBUTION WIDTH 15.7 % (11.5-14.5); WHITE BLOOD COUNT 8.6 10^3/uL (4.5-11.0)
[2018-06-22 07:23] LABS: ALBUMIN 3.3 g/dL (3.0-4.8); ALT/SGPT < 6 U/L (7-56); AST/SGOT 18 U/L (14-36); BLOOD UREA NITROGEN 24 mg/dL (7-21); CALCIUM 8.9 mg/dL (8.4-10.5); GFR NON-AFRICAN AMERICAN 39
[2018-06-22] MEDS: Insulin Reg-MEDIUM-Coverage SC SCH ×4 (08:27→22:40)
[2018-06-22] MEDS: Potassium Chloride 20 mEq ER Tab PO SCH (10:13)
[2018-06-22] MEDS: Levothyroxine 25 MCG TAB PO SCH (10:13)
--- NOTE | 2018-06-22 10:29 | RAD ---
Date of service: 06/21/2018 PROCEDURE: HISTORY: 2nd digit diabetic ulcer COMPARISON: None TECHNIQUE: Standard protocol for this study/examination. FINDINGS: No visible fracture. No evidence radiographically of acute osteomyelitis. Particular attention directed to the 2nd digit Diffuse soft tissue swelling visualize lower extremity including left ankle and left foot. IMPRESSION: Soft tissue swelling without acute articular or osseous abnormality.
[2018-06-22] MEDS: Ceftaroline 600 MG in Sodium Chloride 0.9% 100 ML IVPB SCH (11:28)
--- NOTE | 2018-06-22 13:57 | PN ---
DATE: 06/22/2018 SUBJECTIVE: She is here with a left second toe ulcer, diabetes, hypertension was sent in by Podiatry worried about the toe, the bone. MEDICATIONS: She is on Amaryl, ceftaroline, Eliquis, folic acid, Glucophage, potassium, Lasix, Neurontin, Plavix, IV fluids, Synthroid and Tylenol. OBJECTIVE: GENERAL: She is sitting out of bed to chair, little bit better than yesterday. May be little less pain. VITAL SIGNS: Temperature 97.6, 76 pulse, 114/69 blood pressure, 18 respiratory rate, 96% O2 sat on room air. HEENT: Head is atraumatic, normocephalic. HEART: Regular rate. LUNGS: Decreased breath sounds, but clear. ABDOMEN: Morbidly, morbidly obese. EXTREMITIES: +2/4 pitting edema, left second toe with 1.5 cm x 0.5 cm ulcer. It looks inflamed. It looks infected. LABORATORY DATA: She has an 8.6 white count, 8.5 hemoglobin, 26.9 hematocrit with 159 platelets. INR is 1.24. Sodium 141, potassium 3.9, BUN 24, creatinine 1.3, GFR is 47. Sugar is down to 150. She did come in with 357 that is improving. Calcium is 8.9, total bili is 0.2, AST is , ALT is 6, alk phos 7, total protein 6.7, TSH is 2.46 which is good. ASSESSMENT AND PLAN: She had a sed rate of 62, very much inflamed. She is being seen by Podiatry, Infectious Disease, Interventional vascular doctor. I will see how she does continue with IV antibiotics and also to the left second toe that is infected. Dante March DO MTDD
--- NOTE | 2018-06-22 14:56 | CON ---
DATE OF CONSULTATION: 06/22/2018 CHIEF COMPLAINT: Left foot infection x1 week. HISTORY OF PRESENT ILLNESS: This is an 83-year-old female with obesity with a BMI of 36, who has also had diabetes, hypertension, congestive heart failure, bronchitis, atrial fibrillation, history of urinary tract infection, history of cerebrovascular accident, cataracts, glaucoma, neuropathy, hypothyroidism, who is admitted with after dropping an item on her foot, liquid, hot liquid, when she was cooking, a week later it became into a blister. She states it became red. No significant pain. No discharge. No fevers or chills. REVIEW OF SYSTEMS: Twelve-point review systems performed. PAST MEDICAL HISTORY: significant for hypothyroidism, diabetic neuropathy, diabetes mellitus with neuropathy, glaucoma and cataracts, cerebrovascular accident, bronchitis, atrial fibrillation, hypertension and congestive heart failure./ PAST SURGICAL HISTORY: Significant for cholecystectomy, appendectomy, repair of incarcerated hernia. ALLERGIES: THE PATIENT HAS ALLERGIC TO CEFUROXIME, TRAMADOL, AND HYDROMORPHONE, AND SHE GETS RASH. No travel. MEDICATIONS: The medications at home include Plavix, Lasix, Glucophage, and Synthroid. PHYSICAL EXAMINATION: GENERAL: The patient is in bed, in no acute distress. VITAL SIGNS: Temperature of 98, blood pressure is 130/60, respiratory rate of 18. HEENT: Examination of HEENT is unremarkable. NECK: Supple. LUNGS: Have decreased breath sounds. HEART: Normal S1, S2. ABDOMEN: Soft, nontender. EXTREMITIES: Examination of the left foot reveals second digit has any erythema and edema. No discharge. Pulses are intact. Examination of right foot is within normal limits. LABORATORY DATA: This laboratory examination reveals a white count of 8.5, hemoglobin of 9, sed rate is 62. Coagulation is noted. Chemistries reveal the creatinine is 1.3. Random glucose is 357. Microbiology, no growth from the wound culture from 09/13/2017, and in the past the patient has had urinary tract infections with Citrobacter, Klebsiella, E. Coli. Dr. Dante March's note is reviewed. He states the patient has outpatient antibiotics. ASSESSMENT AND PLAN: This is an 83-year-old diabetic, morbid obesity, rather just obesity with a history of morbid obesity, now obesity with a BMI of 36, congestive heart failure, atrial fibrillation, bronchitis, cerebrovascular accident, neuropathy, hypothyroidism with; 1. Left foot second digit ulcer and cellulitis, must rule out underlying osteomyelitis and must also rule out peripheral vascular disease, peripheral arterial disease and the patient with renal insufficiency. We will start the patient on ceftaroline. Arterial Dopplers were ordered. Consider MRI to use without any contrast and rule out osteomyelitis. If the patient does have an elevated sed rate, we will order a C-reactive protein. Vascular consultation is recommended. We will follow with you. We will check on a plain x-ray. Juan Ramon Rudolph MD
--- NOTE | 2018-06-22 15:13 | CP.PCM.CON ---
<Alondra Llanos - Last Filed: 06/22/18 18:34> History of Present Illness - History of Present Illness History of Present Illness: Podiatry - Drs. Diaz/Curt 83F PMHx DM seen and evaluated at bedside concerning left foot 2nd digit ulcer. Patient states she spilled hot water and cabbage on her left foot approximately 1 week ago which resulted in sultana and blisters to the top of her toes. Patient states she saw Dr. Elias who prescribed Silvadene cream; patient believes she had an allergic reaction to the cream because the blister developed into a deeper wound with worsening redness and pain to her toes so patient was sent to [facility] for admission. Patient reports moderate pain around wound sites. Denies n/v/f/d/c/sob/reece/cp. Review of Systems - Review of Systems All systems: reviewed and no additional remarkable complaints except (as per HPI) Past Patient History - Infectious Disease Hx of Infectious Diseases: None - Tetanus Immunizations Tetanus Immunization: Unknown - Past Social History Smoking Status: Never Smoked - CARDIAC Hx Congestive Heart Failure: Yes Hx Hypertension: Yes - PULMONARY Hx Respiratory Disorders: Yes Hx Bronchitis: Yes - NEUROLOGICAL HX Cerebrovascular Accident: Yes - HEENT Hx HEENT Problems: Yes (uses glasses) Hx Cataracts: Yes (sx) Hx Glaucoma: Yes - RENAL Hx Chronic Kidney Disease: No - ENDOCRINE/METABOLIC Hx Hypothyroidism: Yes - HEMATOLOGICAL/ONCOLOGICAL Hx Blood Disorders: No Hx AIDS: No Hx Anemia: No Hx Cancer: No Hx Chemotherapy: No Hx Cirrhosis: No Hx Hepatitis A: No Hx Hepatitis B: No Hx Hepatitis C: No Hx Human Immunodeficiency Virus (HIV): No Hx Metastesis: No Hx Shingles: No Hx Unexplained Bleeding: No - INTEGUMENTARY Hx Dermatological Problems: Yes Other/Comment: 06-21-18 LEFT 2ND TOE WITH OLD BLISTER DRYING UP MEASURES 1.5 X 0.8 CM ,3RD TOE IS REDDENED. BOTH ARE SWOLLEN AND PAINFUL EDEMA +2. WAS COOKING CABBAGE WHEN IT FELL ON HER TOES. - MUSCULOSKELETAL/RHEUMATOLOGICAL Hx Arthritis: Yes - GASTROINTESTINAL Hx Gastrointestinal Disorders: Yes (IBS-CHRONIC WATERY BM) Other/Comment: APPENDECTOMY,CHOLECYSTECTOMY,UMBILICAL HERNIA - GENITOURINARY/GYNECOLOGICAL Hx Genitourinary Disorders: Yes (frequent urination) - PSYCHIATRIC Hx Emotional Abuse: No Hx Physical Abuse: No Hx Substance Use: No - SURGICAL HISTORY Hx Surgeries: Yes Hx Appendectomy: Yes Hx Cholecystectomy: Yes - ANESTHESIA Hx Anesthesia: Yes Hx Anesthesia Reactions: No Hx Malignant Hyperthermia: No Meds Allergies/Adverse Reactions: Allergies Allergy/AdvReac Type Severity Reaction Status Date / Time hydromorphone HCl Allergy Severe HALLUCINATI Verified 06/21/18 18:34 [From Dilaudid] ONS tramadol Allergy Severe RASH Verified 06/21/18 18:34 iodine Allergy RASH Verified 06/21/18 18:34 silver sulfadiazine Allergy RASH Verified 06/21/18 18:34 [From Silvadene] - Medications Medications: Current Medications Acetaminophen (Tylenol 325mg Tab) 650 mg PO Q4 PRN PRN Reason: Pain, Mild (1-3) Last Admin: 06/22/18 11:38 Dose: 650 mg Apixaban (Eliquis) 2.5 mg PO BID REPLACED BY [facility]; Protocol Last Admin: 06/22/18 10:13 Dose: 2.5 mg Clopidogrel Bisulfate (Plavix) 75 mg PO DAILY REPLACED BY [facility] Last Admin: 06/22/18 10:13 Dose: 75 mg Folic Acid (Folic Acid) 1 mg PO DAILY REPLACED BY [facility] Last Admin: 06/22/18 10:13 Dose: 1 mg Furosemide (Lasix) 40 mg IVP DAILY REPLACED BY [facility] Last Admin: 06/22/18 10:14 Dose: 40 mg Gabapentin (Neurontin) 300 mg PO TID REPLACED BY [facility]; Protocol Last Admin: 06/22/18 14:00 Dose: 300 mg Glimepiride (Amaryl) 4 mg PO BID REPLACED BY [facility] Last Admin: 06/22/18 10:13 Dose: 4 mg Sodium Chloride (Sodium Chloride 0.45%) 1,000 mls @ 40 mls/hr IV .Q24H REPLACED BY [facility] Last Admin: 06/21/18 18:45 Dose: 40 mls/hr Ceftaroline Fosamil 600 mg/ (Sodium Chloride) 100 mls @ 100 mls/hr IVPB Q12 REPLACED BY [facility]; Protocol Stop: 07/01/18 10:31 Last Admin: 06/22/18 11:28 Dose: 100 mls/hr Insulin Human Regular (Humulin R Med) 0 units SC ACHS REPLACED BY [facility]; Protocol Last Admin: 06/22/18 11:33 Dose: 7 u Levothyroxine Sodium (Synthroid) 25 mcg PO DAILY REPLACED BY [facility] Last Admin: 06/22/18 10:13 Dose: 25 mcg Metformin HCl (Glucophage) 1,000 mg PO BID REPLACED BY [facility] Last Admin: 06/22/18 10:13 Dose: 1,000 mg Potassium Chloride (K-Dur 20 Meq Er Tab) 20 meq PO DAILY REPLACED BY [facility] Last Admin: 06/22/18 10:13 Dose: 20 meq Physical Exam - Constitutional Appears: Non-toxic, No Acute Distress - Extremities Exam Additional comments: LLE focused VASC: DP and PT pulse nonpalpable secondary to edema. CFT <3 seconds to digits. Temperature gradient warm to warm, no significant increase in warmth noted to areas of erythema. +1 pitting edema noted to lower extremity. NEURO: Light touch and protective sensation intact. DERM: Partial thickness burn noted to dorsum of left 2nd digit measuring approximately 2 x 2 x 0.1 cm - noted to have a dry, granular base and erythema periwound. Erythema noted to dorsum of 3rd digit. ORTHO: Pain on palpation noted to 2nd and 3rd digits. - Neurological Exam Neurological exam: Alert, Oriented x3 - Psychiatric Exam Psychiatric exam: Normal Affect, Normal Mood Results - Vital Signs Recent Vital Signs: Last Vital Signs Temp 97.3 F L 06/22/18 14:00 Pulse 76 06/22/18 14:00 Resp 17 06/22/18 14:00 BP 125/75 06/22/18 14:00 Pulse Ox 97 06/22/18 14:00 - Labs Result Diagrams: 06/22/18 06:00 06/22/18 06:00 Labs: Laboratory Results - last 24 hr 06/21/18 06/21/18 06/21/18 16:00 16:00 16:00 WBC 8.5 RBC 3.32 L Hgb 9.4 L Hct 29.4 L MCV 88.6 MCH 28.3 MCHC 32.0 RDW 15.6 H Plt Count 163 MPV 10.2 Neut % (Auto) 78.8 H Lymph % (Auto) 11.0 L Briscoe % (Auto) 6.3 H Eos % (Auto) 3.7 Baso % (Auto) 0.2 Lymph # (Auto) 0.9 L [place] # (Auto) 0.5 Eos # (Auto) 0.3 Baso # (Auto) 0.02 Absolute Neuts (auto) 6.72 H ESR 62 H PT 13.8 H INR 1.24 APTT 40.1 H Sodium 137 Potassium 3.9 Chloride 97 L Carbon Dioxide 27 Anion Gap 16 BUN 27 H Creatinine 1.3 H Est GFR ( Amer) 47 Est GFR (Non-Af Amer) 39 POC Glucose (mg/dL) Random Glucose 357 H* D Calcium 9.0 Total Bilirubin 0.3 AST 15 ALT 7 Alkaline Phosphatase 89 Total Protein 7.0 Albumin 3.6 Globulin 3.4 Albumin/Globulin Ratio 1.0 L [facility] 3rd Generation 06/21/18 06/22/18 06/22/18 21:39 06:00 06:00 WBC 8.6 RBC 3.05 L Hgb 8.5 L Hct 26.9 L MCV 88.2 MCH 27.9 MCHC 31.6 RDW 15.7 H Plt Count 159 MPV 9.3 Neut % (Auto) Lymph % (Auto) Briscoe % (Auto) Eos % (Auto) Baso % (Auto) Lymph # (Auto) [place]iscoe # (Auto) Eos # (Auto) Baso # (Auto) Absolute Neuts (auto) ESR PT INR APTT Sodium 141 Potassium 3.9 Chloride 102 Carbon Dioxide 31 Anion Gap 11 BUN 24 H Creatinine 1.3 H Est GFR ( Amer) 47 Est GFR (Non-Af Amer) 39 POC Glucose (mg/dL) 267 H Random Glucose 150 H Calcium 8.9 Total Bilirubin 0.2 AST 18 ALT < 6 L Alkaline Phosphatase 70 Total Protein 6.7 Albumin 3.3 Globulin 3.4 Albumin/Globulin Ratio 1.0 L [facility] 3rd Generation 06/22/18 06/22/18 06/22/18 06:00 06:31 11:05 WBC RBC Hgb Hct MCV MCH MCHC RDW Plt Count MPV Neut % (Auto) Lymph % (Auto) Briscoe % (Auto) Eos % (Auto) Baso % (Auto) Lymph # (Auto) [place]iscoe # (Auto) Eos # (Auto) Baso # (Auto) Absolute Neuts (auto) ESR PT INR APTT Sodium Potassium Chloride Carbon Dioxide Anion Gap BUN Creatinine Est GFR ( Amer) Est GFR (Non-Af Amer) POC Glucose (mg/dL) 157 H 303 H Random Glucose Calcium Total Bilirubin AST ALT Alkaline Phosphatase Total Protein Albumin Globulin Albumin/Globulin Ratio TSH 3rd Generation 2.46 Assessment & Plan - Assessment and Plan (Free Text) Assessment: 83F with superficial and partial thickness sultana to left 2nd and 3rd digits Plan: Patient seen and evaluated Discussed with attending, Dr. Diaz VSS, WBC WNL 8.6, ESR 62 Left foot XR: ST swelling, no osseous or articular abnormalities Left foot wound culture pending Abx per ID Vascular Dr. Vazquez consulted, f/u recs Arterial duplex ordered, f/u Wound cleansed with saline and dressed with DSD Podiatry will continue to follow <Belen Diaz - Last Filed: 06/22/18 19:29> Meds - Medications Medications: Current Medications Acetaminophen (Tylenol 325mg Tab) 650 mg PO Q4 PRN PRN Reason: Pain, Mild (1-3) Last Admin: 06/22/18 11:38 Dose: 650 mg Apixaban (Eliquis) 2.5 mg PO BID REPLACED BY [facility]; Protocol Last Admin: 06/22/18 17:46 Dose: 2.5 mg Clopidogrel Bisulfate (Plavix) 75 mg PO DAILY REPLACED BY [facility] Last Admin: 06/22/18 10:13 Dose: 75 mg Folic Acid (Folic Acid) 1 mg PO DAILY REPLACED BY [facility] Last Admin: 06/22/18 10:13 Dose: 1 mg Furosemide (Lasix) 40 mg IVP DAILY REPLACED BY [facility] Last Admin: 06/22/18 10:14 Dose: 40 mg Gabapentin (Neurontin) 300 mg PO TID REPLACED BY [facility]; Protocol Last Admin: 06/22/18 17:45 Dose: 300 mg Glimepiride (Amaryl) 4 mg PO BID REPLACED BY [facility] Last Admin: 06/22/18 17:46 Dose: 4 mg Home Med (Home Med) 1 unit PO AC REPLACED BY [facility] Last Admin: 06/22/18 17:45 Dose: 1 unit Sodium Chloride (Sodium Chloride 0.45%) 1,000 mls @ 40 mls/hr IV .Q24H REPLACED BY [facility] Last Admin: 06/21/18 18:45 Dose: 40 mls/hr Ceftaroline Fosamil 600 mg/ (Sodium Chloride) 100 mls @ 100 mls/hr IVPB Q12 REPLACED BY [facility]; Protocol Stop: 07/01/18 10:31 Last Admin: 06/22/18 11:28 Dose: 100 mls/hr Insulin Human Regular (Humulin R Med) 0 units SC ACHS REPLACED BY [facility]; Protocol Last Admin: 06/22/18 17:02 Dose: 1 u Levothyroxine Sodium (Synthroid) 25 mcg PO DAILY REPLACED BY [facility] Last Admin: 06/22/18 10:13 Dose: 25 mcg Metformin HCl (Glucophage) 1,000 mg PO BID REPLACED BY [facility] Last Admin: 06/22/18 17:45 Dose: 1,000 mg Potassium Chloride (K-Dur 20 Meq Er Tab) 20 meq PO DAILY REPLACED BY [facility] Last Admin: 06/22/18 10:13 Dose: 20 meq Results - Vital Signs Recent Vital Signs: Last Vital Signs Temp 97.3 F L 06/22/18 14:00 Pulse 76 06/22/18 14:00 Resp 17 06/22/18 14:00 BP 125/75 06/22/18 14:00 Pulse Ox 97 06/22/18 14:00 - Labs Result Diagrams: 06/22/18 06:00 06/22/18 06:00 Labs: Laboratory Results - last 24 hr 06/21/18 06/22/18 06/22/18 21:39 06:00 06:00 WBC 8.6 RBC 3.05 L Hgb 8.5 L Hct 26.9 L MCV 88.2 MCH 27.9 MCHC 31.6 RDW 15.7 H Plt Count 159 MPV 9.3 Sodium 141 Potassium 3.9 Chloride 102 Carbon Dioxide 31 Anion Gap 11 BUN 24 H Creatinine 1.3 H Est GFR ( Amer) 47 Est GFR (Non-Af Amer) 39 POC Glucose (mg/dL) 267 H Random Glucose 150 H Calcium 8.9 Total Bilirubin 0.2 AST 18 ALT < 6 L Alkaline Phosphatase 70 C-Reactive Protein Total Protein 6.7 Albumin 3.3 Globulin 3.4 Albumin/Globulin Ratio 1.0 L TSH 3rd Generation 06/22/18 06/22/18 06/22/18 06:00 06:31 10:35 WBC RBC Hgb Hct MCV MCH MCHC RDW Plt Count MPV Sodium Potassium Chloride Carbon Dioxide Anion Gap BUN Creatinine Est GFR ( Amer) Est GFR (Non-Af Amer) POC Glucose (mg/dL) 157 H Random Glucose Calcium Total Bilirubin AST ALT Alkaline Phosphatase C-Reactive Protein 30.10 H Total Protein Albumin Globulin Albumin/Globulin Ratio TSH 3rd Generation 2.46 06/22/18 06/22/18 11:05 16:05 WBC RBC Hgb Hct MCV MCH MCHC RDW Plt Count MPV Sodium Potassium Chloride Carbon Dioxide Anion Gap BUN Creatinine Est GFR ( Amer) Est GFR (Non-Af Amer) POC Glucose (mg/dL) 303 H 192 H Random Glucose Calcium Total Bilirubin AST ALT Alkaline Phosphatase C-Reactive Protein Total Protein Albumin Globulin Albumin/Globulin Ratio TSH 3rd Generation Attending/Attestation - Attestation I have personally seen and examined this patient.: Yes I have fully participated in the care of the patient.: Yes I have reviewed all pertinent clinical information: Yes
[2018-06-22] MEDS ORDERED: PANCREALIPASE PO SCH (16:30)
[2018-06-22] MEDS: Home Med 1 UNIT PO SCH (17:45)
[2018-06-23 06:57] LABS: HEMOGLOBIN 8.8 g/dL (12.0-16.0); MEAN CELL VOLUME 89.2 fl (80.0-105.0); MEAN CORPUSCULAR HEMOGLOBIN 27.9 pg (25.0-35.0); MEAN CORPUSCULAR HGB CONC 31.3 g/dl (31.0-37.0); MEAN PLATELET VOLUME 9.1 fl (7.0-11.0); RBC 3.15 10^6/uL (3.5-6.1); RED CELL DISTRIBUTION WIDTH 15.9 % (11.5-14.5); WHITE BLOOD COUNT 7.7 10^3/uL (4.5-11.0)
[2018-06-23 07:37] LABS: ALBUMIN 3.4 g/dL (3.0-4.8); AST/SGOT 20 U/L (14-36); BLOOD UREA NITROGEN 22 mg/dL (7-21); GFR NON-AFRICAN AMERICAN 39
[2018-06-23 07:39] LABS: ALT/SGPT < 6 U/L (7-56)
[2018-06-23] MEDS: Insulin Reg-MEDIUM-Coverage SC SCH ×4 (07:40→21:21)
[2018-06-23] MEDS: Home Med 1 UNIT PO SCH ×3 (08:00→17:19)
[2018-06-23 08:13] VITALS: RESP 18; O2SAT 96
--- NOTE | 2018-06-23 09:01 | PN ---
DATE: 06/23/2018 SUBJECTIVE: She came in after Podiatry sent her in because of her toe, she has a left second toe ulcer after she dropped a head of cabbage on it. She is also a diabetic with hypertension. PHYSICAL EXAMINATION VITAL SIGNS: She has a 97.6 temperature, 81 pulse, 108/68 blood pressure, 18 respiratory rate, 96% O2 sat on room air. HEENT: Head is atraumatic, normocephalic. CARDIOPULMONARY: Heart regular rate. LUNGS: With decreased breath sounds but clear. ABDOMEN: Soft, morbidly obese, nontender. EXTREMITIES: The left second toe has got an ulcer that looks like it is starting to dry at little bit, which is good. LABORATORY DATA: She has a 7.7 white count, 8.8 hemoglobin, 28.1 hematocrit with 156 platelets. INR is 1.24. A 144 sodium, potassium 4.5, BUN 22, creatinine 1.3. She is a little bit better. GFR is 39, sugar is 98, calcium is 9, total bili is 0.2, AST is 20, ALT is 6, alk phos 63, total protein 6.8. C-reactive protein is 30.1 which is high. The sed rate was also high when she came in at 62. MEDICATIONS: She is on IV antibiotics. She is on Amaryl, ceftaroline, Eliquis, folic acid, Glucophage, insulin, potassium, Lasix, Neurontin, Plavix, IV fluids, Synthroid and Tylenol. ASSESSMENT AND PLAN: She is being seen by Podiatry who sent her in and Infectious Disease have her on intravenous antibiotics. She also needs to have physical therapy which was ordered. Continue intravenous antibiotics, physical therapy. Checking her labs. Discuss with Infectious Disease. Dante March DO
[2018-06-23] MEDS: Potassium Chloride 20 mEq ER Tab PO SCH (10:44)
[2018-06-23] MEDS: Levothyroxine 25 MCG TAB PO SCH (10:46)
[2018-06-23] MEDS: Ceftaroline 600 MG in Sodium Chloride 0.9% 100 ML IVPB SCH (10:48)
--- NOTE | 2018-06-23 10:49 | CP.PCM.APN ---
Subjective - Date & Time of Evaluation Date of Evaluation: 06/23/18 Time of Evaluation: 09:00 - Subjective Subjective: Pt seen and examined at bedside. C/O pain on L 2nd/3rd toe but improved. Objective - Vital Signs/Intake and Output Vital Signs (last 24 hours): Temp Pulse Resp BP Pulse Ox 97.6 F 81 18 108/68 96 06/23/18 06:00 06/23/18 06:00 06/23/18 06:00 06/23/18 06:00 06/23/18 06:00 - Medications Medications: Current Medications Acetaminophen (Tylenol 325mg Tab) 650 mg PO Q4 PRN PRN Reason: Pain, Mild (1-3) Last Admin: 06/22/18 11:38 Dose: 650 mg Apixaban (Eliquis) 2.5 mg PO BID [facility]; Protocol Last Admin: 06/22/18 17:46 Dose: 2.5 mg Clopidogrel Bisulfate (Plavix) 75 mg PO DAILY [facility] Last Admin: 06/22/18 10:13 Dose: 75 mg Folic Acid (Folic Acid) 1 mg PO DAILY [facility] Last Admin: 06/22/18 10:13 Dose: 1 mg Furosemide (Lasix) 40 mg IVP DAILY [facility] Last Admin: 06/22/18 10:14 Dose: 40 mg Gabapentin (Neurontin) 300 mg PO TID [facility]; Protocol Last Admin: 06/22/18 17:45 Dose: 300 mg Glimepiride (Amaryl) 4 mg PO BID [facility] Last Admin: 06/22/18 17:46 Dose: 4 mg Home Med (Home Med) 1 unit PO AC [facility] Last Admin: 06/23/18 08:00 Dose: 1 unit Sodium Chloride (Sodium Chloride 0.45%) 1,000 mls @ 40 mls/hr IV .Q24H [facility] Last Admin: 06/21/18 18:45 Dose: 40 mls/hr Ceftaroline Fosamil 600 mg/ (Sodium Chloride) 100 mls @ 100 mls/hr IVPB Q12 [facility]; Protocol Stop: 07/01/18 10:31 Last Admin: 06/22/18 11:28 Dose: 100 mls/hr Insulin Human Regular (Humulin R Med) 0 units SC ACHS [facility]; Protocol Last Admin: 06/23/18 07:40 Dose: Not Given Levothyroxine Sodium (Synthroid) 25 mcg PO DAILY [facility] Last Admin: 06/22/18 10:13 Dose: 25 mcg Metformin HCl (Glucophage) 1,000 mg PO BID [facility] Last Admin: 06/22/18 17:45 Dose: 1,000 mg Potassium Chloride (K-Dur 20 Meq Er Tab) 20 meq PO DAILY [facility] Last Admin: 06/22/18 10:13 Dose: 20 meq - Labs Labs: 06/23/18 06:30 06/23/18 06:30 PT 13.8 SECONDS (9.4-12.5) H 06/21/18 16:00 INR 1.24 06/21/18 16:00 APTT 40.1 Seconds (26.9-38.3) H 06/21/18 16:00 - Constitutional Appears: No Acute Distress - Neck Exam Neck Exam: Full ROM - Respiratory Exam Respiratory Exam: Clear to Ausculation Bilateral, NORMAL BREATHING PATTERN - Cardiovascular Exam Cardiovascular Exam: REGULAR RHYTHM, +S1, +S2 - GI/Abdominal Exam GI & Abdominal Exam: Soft, Normal Bowel Sounds - Extremities Exam Additional comments: L 2nd/3rd toe w/ ulcer. No foul smell or drainage noted. Assessment and Plan - Assessment and Plan (Free Text) Assessment: Pt is an 83 y.o. female admitted for superficial/partial thickness sultana on L 2nd/3rd toe. Plan: On Teflaro per ID recs ID, Vascular, and Podiatry on consult Meds per MAR Physical therapy pending Will continue to follow
--- NOTE | 2018-06-23 11:19 | CP.PCM.PN ---
Subjective - Date & Time of Evaluation Date of Evaluation: 06/23/18 Time of Evaluation: 11:17 - Subjective Subjective: Podiatry - Drs. Diaz/Curt 83F seen and evaluated at bedside this AM. Reports mild pain to left foot and digits. Denies acute events overnight. Dressing is clean dry and intact. Denies n/v/f/c/sob/cp and has no other acute complaints. Objective - Vital Signs/Intake and Output Vital Signs (last 24 hours): Temp Pulse Resp BP Pulse Ox 97.6 F 81 18 108/68 96 06/23/18 06:00 06/23/18 06:00 06/23/18 06:00 06/23/18 06:00 06/23/18 06:00 - Medications Medications: Current Medications Acetaminophen (Tylenol 325mg Tab) 650 mg PO Q4 PRN PRN Reason: Pain, Mild (1-3) Last Admin: 06/22/18 11:38 Dose: 650 mg Apixaban (Eliquis) 2.5 mg PO BID [facility]; Protocol Last Admin: 06/22/18 17:46 Dose: 2.5 mg Clopidogrel Bisulfate (Plavix) 75 mg PO DAILY [facility] Last Admin: 06/22/18 10:13 Dose: 75 mg Folic Acid (Folic Acid) 1 mg PO DAILY [facility] Last Admin: 06/22/18 10:13 Dose: 1 mg Furosemide (Lasix) 40 mg IVP DAILY [facility] Last Admin: 06/22/18 10:14 Dose: 40 mg Gabapentin (Neurontin) 300 mg PO TID [facility]; Protocol Last Admin: 06/22/18 17:45 Dose: 300 mg Glimepiride (Amaryl) 4 mg PO BID [facility] Last Admin: 06/22/18 17:46 Dose: 4 mg Home Med (Home Med) 1 unit PO AC [facility] Last Admin: 06/23/18 08:00 Dose: 1 unit Sodium Chloride (Sodium Chloride 0.45%) 1,000 mls @ 40 mls/hr IV .Q24H [facility] Last Admin: 06/21/18 18:45 Dose: 40 mls/hr Ceftaroline Fosamil 400 mg/ (Sodium Chloride) 100 mls @ 100 mls/hr IVPB Q12 [facility]; Protocol Stop: 07/01/18 10:31 Insulin Human Regular (Humulin R Med) 0 units SC ACHS [facility]; Protocol Last Admin: 06/23/18 07:40 Dose: Not Given Levothyroxine Sodium (Synthroid) 25 mcg PO DAILY [facility] Last Admin: 06/22/18 10:13 Dose: 25 mcg Metformin HCl (Glucophage) 1,000 mg PO BID [facility] Last Admin: 06/22/18 17:45 Dose: 1,000 mg Potassium Chloride (K-Dur 20 Meq Er Tab) 20 meq PO DAILY [facility] Last Admin: 06/22/18 10:13 Dose: 20 meq - Labs Labs: 06/23/18 06:30 06/23/18 06:30 PT 13.8 SECONDS (9.4-12.5) H 06/21/18 16:00 INR 1.24 06/21/18 16:00 APTT 40.1 Seconds (26.9-38.3) H 06/21/18 16:00 - Constitutional Appears: Non-toxic - Head Exam Head Exam: ATRAUMATIC - Extremities Exam Additional comments: LLE focused VASC: DP and PT pulse nonpalpable secondary to edema. CFT <3 seconds to digits. Temperature gradient warm to warm, no significant increase in warmth noted to areas of erythema. +1 pitting edema noted to lower extremity. NEURO: Light touch and protective sensation intact. DERM: Partial thickness burn noted to dorsum of left 2nd digit measuring approximately 2 x 2 x 0.1 cm - noted to have a dry, granular base and erythema periwound. Erythema noted to dorsum of 3rd digit. ORTHO: Pain on palpation noted to 2nd and 3rd digits. - Neurological Exam Neurological Exam: Alert, Awake, Oriented x3 - Psychiatric Exam Psychiatric exam: Normal Affect Assessment and Plan - Assessment and Plan (Free Text) Assessment: 83F with superficial and partial thickness sultana to left 2nd and 3rd digits Plan: Patient seen and evaluated Discussed with attending, Dr. Joe BOLDEN, WBC WNL 8.6, ESR 62 Left foot XR: ST swelling, no osseous or articular abnormalities Left foot wound culture pending Abx per ID Vascular Dr. Vazquez consulted, f/u recs Arterial duplex ordered, f/u Wound cleansed with saline and dressed with DSD Podiatry will continue to follow
--- NOTE | 2018-06-23 12:18 | US ---
PROCEDURE: Lower extremity MAYA exam HISTORY: Peripheral vascular disease with pain and ulceration. Diabetes. PHYSICIAN(S): Manish Vazquez MD. FINDINGS: The resting MAYA's are normal: right, 1.22and left, 1.18. The brachial systolic pressures are symmetric. The high thigh pressures and waveforms are relatively normal. The calf PVR waveforms augment normally. No significant gradients are noted across the thighs. The ankle and metatarsal waveforms are relatively normal and symmetric. No significant pressure gradients are noted across the lower legs. IMPRESSION: 1. Normal MAYA and PVR examination at rest.
[2018-06-23] MEDS: Sodium Chloride 0.45% 1,000 ML IV SCH (17:25)
--- NOTE | 2018-06-23 17:56 | PN ---
DATE: 06/23/2018 SUBJECTIVE: The patient is in bed in no acute distress. The patient was seen earlier today in 564, bed 1. No fevers, and no chills. PHYSICAL EXAMINATION: VITAL SIGNS: Temperature is 98, blood pressure is 108/60, respiratory rate of 18. HEENT: Unremarkable. NECK: Supple. LUNGS: Have decreased breath sounds. HEART: Normal S1 and S2. ABDOMEN: Soft. LABORATORY DATA: Reveals a white count of 7.7, hemoglobin of 8. Chemistries are noted, creatinine of 1.3. Microbiology reveals the blood cultures are negative, left foot cultures, no growth. Review of orders reveals the patient to be on ceftaroline, and Dr. Vazquez's ultrasound of extremities report is reviewed and normal MAYA, examination at rest. ASSESSMENT AND PLAN: This is an 83-year-old female with diabetes, history of morbid obesity, now is with obesity, BMI of 36, congestive heart failure, atrial fibrillation, bronchitis, cerebrovascular accident, neuropathy, hypothyroidism with left foot second digit cellulitis, must rule out underlying osteomyelitis, may order an MRI without contrast to rule out osteo; and arterial studies are noted, currently on Teflaro; and consultation is reviewed. We will follow closely with you. Juan Ramon Rudolph MD
[2018-06-24 07:09] LABS: HEMOGLOBIN 8.6 g/dL (12.0-16.0); MEAN CELL VOLUME 89.3 fl (80.0-105.0); MEAN CORPUSCULAR HEMOGLOBIN 27.9 pg (25.0-35.0); MEAN CORPUSCULAR HGB CONC 31.3 g/dl (31.0-37.0); MEAN PLATELET VOLUME 9.1 fl (7.0-11.0); RBC 3.08 10^6/uL (3.5-6.1); RED CELL DISTRIBUTION WIDTH 15.9 % (11.5-14.5); WHITE BLOOD COUNT 6.7 10^3/uL (4.5-11.0)
[2018-06-24] MEDS: Insulin Reg-MEDIUM-Coverage SC SCH ×2 (07:12→13:12)
[2018-06-24 07:17] LABS: ALB/GLOB RATIO 1.1 (1.1-1.8); ALBUMIN 3.5 g/dL (3.0-4.8); CALCIUM 9.4 mg/dL (8.4-10.5)
[2018-06-24 08:59] VITALS: PULSE 75; TEMP 98
--- NOTE | 2018-06-24 10:46 | PN ---
DATE: 06/24/2018 SUBJECTIVE: She is resting comfortably in bed. She has a left second toe with an ulcer which is all bandaged right now. She is also diabetic with hypertension. She is morbidly obese but she is comfortable. No pain. MEDICATIONS: She is on Amaryl, ceftaroline, Eliquis, folic acid, Glucophage, potassium, Lasix, Neurontin, Plavix, IV fluids, Synthroid and Tylenol. PHYSICAL EXAMINATION VITAL SIGNS: She has 98.3 temperature, 73 pulse, 124/72 blood pressure, 18 respiratory rate and 96% O2 sat. HEENT: Head is atraumatic and normocephalic. HEART: Regular rate. LUNGS: Decreased breath sounds. ABDOMEN: Soft and obese. EXTREMITIES: The left foot is bandaged. LABORATORY DATA: She has a 6.7 white count, 8.6 hemoglobin, 27.5 hematocrit with 153 platelets. A 141 sodium, potassium 4.7, BUN 25, creatinine 1.3, blood sugar is 111, calcium is 9, total bili is 0.2, AST is 20, ALT is 6, alk phos 63 and total protein 6.8. She is being seen by Interventional Radiologist and also Infectious Disease and Podiatry. She is on IV antibiotics. Left foot second digit cellulitis underlying osteomyelitis. The extremity ultrasound showed normal MAYA. We will see what physical therapy adds to the picture. When I can get her off the IV antibiotics, I will discharge her home on oral antibiotics. She is here for left toe cellulitis and ulcer, . Dante March DO MTDKayla
[2018-06-24] MEDS: Levothyroxine 25 MCG TAB PO SCH (11:17)
[2018-06-24] MEDS: Potassium Chloride 20 mEq ER Tab PO SCH (11:17)
[2018-06-24] MEDS: Home Med 1 UNIT PO SCH ×2 (11:22→13:01)
[2018-06-24 11:27] VITALS: BP 128/77
--- NOTE | 2018-06-24 14:13 | PN ---
DATE: 06/24/2018 SUBJECTIVE: The patient is in bed, in no acute distress, nontoxic. PHYSICAL EXAMINATION: VITAL SIGNS: Temperature 98, blood pressure 120/60, respiratory rate 18. HEENT: Examination of HEENT is unremarkable. NECK: Supple. LUNGS: Decreased breath sounds. HEART: Normal S1, S2. ABDOMEN: Soft, nontender. LABORATORY DATA: Laboratory examination reveals the creatinine is 1.3 and white count is 6.7. Sed rate is 62. Examination of the toe is much improved. I spoke to Dr. Diaz. She feels this is only superficial. She reviewed the x-rays and she feels there is no underlying osteomyelitis. ASSESSMENT AND PLAN: This is an 83-year-old female with diabetes and history of morbid obesity and BMI of 36, congestive heart failure, atrial fibrillation, bronchitis, cerebrovascular accident, neuropathy, hypothyroidism with a left foot second digit cellulitis that is resolved and Dr. Diaz feels this is not osteomyelitis and she spoke to her in length. She does not recommend further imaging. We will be switching to oral Augmentin, 875 p.o. b.i.d. x5 days. She will follow with Dr. Diaz as outpatient. Case was discussed with the patient's daughter who also lives with the patient in the same household and who was in the room at the time of the examination today. Juan Ramon Rudolph MD
[2018-06-24] MEDS ORDERED: Amoxicillin-Clav 500-125 mg Tab PO SCH (22:00)
== END 2018-06-24 15:06 | disposition home health service (06) | DRG 639 ==
LOC: ED 15:20 → ERH 17:47 → 5RNO 19:09
PROVIDERS: ADMIT Family Medicine; ATTEND Family Medicine
DX: E11.621 Type 2 diabetes mellitus with foot ulcer (principal); E11.65 Type 2 diabetes mellitus with hyperglycemia; L97.529 Non-pressure chronic ulcer of other part of left foot with unspecified severity; L03.032 Cellulitis of left toe; T25.032A Burn of unspecified degree of left toe(s) (nail), initial encounter; E11.40 Type 2 diabetes mellitus with diabetic neuropathy, unspecified; E03.9 Hypothyroidism, unspecified; I48.91 Unspecified atrial fibrillation; I11.0 Hypertensive heart disease with heart failure; I50.9 Heart failure, unspecified; K58.9 Irritable bowel syndrome, unspecified; E66.01 Morbid (severe) obesity due to excess calories; Z68.36 Body mass index [BMI] 36.0-36.9, adult; Z86.73 Personal history of transient ischemic attack (TIA), and cerebral infarction without residual deficits; X12.XXXA Contact with other hot fluids, initial encounter; Y93.89 Activity, other specified; Y92.000 Kitchen of unspecified non-institutional (private) residence as the place of occurrence of the external cause; H40.9 Unspecified glaucoma; Z79.890 Hormone replacement therapy; Z87.440 Personal history of urinary (tract) infections

== ENCOUNTER 2018-07-26 18:01 | Emergency (ER) | payer MEDICARE, OTHER ==
[2018-07-26 18:04] VITALS: BMI 34.7
[2018-07-26 18:20] VITALS: BP 126/57; PULSE 83; RESP 18; TEMP 98.5; O2SAT 100
--- NOTE | 2018-07-26 19:00 | ED PDOC ---
Arrival/HPI - General Chief Complaint: Lower Extremity Problem/Injury Time Seen by Provider: 07/26/18 18:41 Historian: Patient - History of Present Illness Narrative History of Present Illness (Text): 07/26/18 18:56 An 83 year old female, whose past medical history includes diabetes, presents to the emergency room accompanied by family complaining of left foot 2nd toe pain for the past 1 week. Patient reports pain occurs upon movement and notes slight swelling to her left foot. Patient states she was initially prescribed to keep her feet elevated but earlier this week she then prescribed to walk on her left foot to improved circulation and upon walking on her left foot for one week, she started to have pain. Patient also notes she is feeling a burning sensation to her both of her feet. Patient states Dr. March saw her yesterday who stated her left toe is infected started the patient on an antibiotics treatment. Patient also notes she saw her sales representative adding machines, Dr. Elias, earlier today who removed the scab on the wound and prescribed her a cream and advised patient to wait a week to check on any improvement. Patient notes she took Tylenol for pain to no relief. Patient denies any fever, chills, leg pain, or any other complaints. PMD: Dr. March Vortex Operator: Dr. Elias Time/Duration: 1 week Symptom Onset: Gradual Symptom Course: Unchanged Activities at Onset: Light Context: Home Past Medical History - Provider Review Nursing Documentation Reviewed: Yes - Past History Past History: Non-Contributing - Infectious Disease Hx of Infectious Diseases: None - Tetanus Immunization Tetanus Immunization: Unknown - Reproductive Menopause: Yes - Past Medical History Past Medical History: No Previous - Cardiac Hx Congestive Heart Failure: Yes Hx Hypertension: Yes - Pulmonary Hx Respiratory Disorders: Yes Hx Bronchitis: Yes - Neurological HX Cerebrovascular Accident: Yes - HEENT Hx HEENT Disorder: Yes (uses glasses) Hx Cataracts: Yes (sx) Hx Glaucoma: Yes - Renal Hx Renal Disorder: No - Endocrine/Metabolic Hx Hypothyroidism: Yes - Hematological/Oncological Hx Blood Disorders: No Hx AIDS: No Hx Anemia: No Hx Cancer: No Hx Chemotherapy: No Hx Cirrhosis: No Hx Hepatitis A: No Hx Hepatitis B: No Hx Hepatitis C: No Hx Metastasis: No Hx Shingles: No Hx Unexplained Bleeding: No - Integumentary Hx Dermatological Disorder: Yes Other/Comment: 3-16-19 LEFT 2ND TOE WITH OLD BLISTER DRYING UP MEASURES 1.5 X 0.8 CM ,3RD TOE IS REDDENED. BOTH ARE SWOLLEN AND PAINFUL EDEMA +2. WAS COOKING CABBAGE WHEN IT FELL ON HER TOES. - Musculoskeletal/Rheumatological Hx Arthritis: Yes - Gastrointestinal Hx Gastrointestinal Disorders: Yes (IBS-CHRONIC WATERY BM) Other/Comment: APPENDECTOMY,CHOLECYSTECTOMY,UMBILICAL HERNIA - Genitourinary/Gynecological Hx Genitourinary Disorders: Yes (frequent urination) - Psychiatric Hx Emotional Abuse: No Hx Physical Abuse: No Hx Substance Use: No - Past Surgical History Past Surgical History: Unable to Obtain - Surgical History Hx Appendectomy: Yes Hx Cholecystectomy: Yes - Anesthesia Hx Anesthesia: Yes Hx Anesthesia Reactions: No Hx Malignant Hyperthermia: No - Suicidal Assessment Feels Threatened In Home Enviroment: No Family/Social History - Physician Review Nursing Documentation Reviewed: Yes Family/Social History: No Known Family HX Smoking Status: Never Smoked Hx Alcohol Use: No Hx Substance Use: No Hx Substance Use Treatment: No Allergies/Home Meds Allergies/Adverse Reactions: Allergies hydromorphone HCl [From Dilaudid] Allergy (Severe, Verified 07/26/18 18:20) HALLUCINATIONS tramadol Allergy (Severe, Verified 07/26/18 18:20) RASH iodine Allergy (Verified 07/26/18 18:20) RASH silver sulfadiazine [From Silvadene] Allergy (Verified 07/26/18 18:20) RASH Home Medications: Home Meds Medication Instructions Recorded Confirmed Clopidogrel [Plavix] 75 mg PO DAILY 10/11/15 06/21/18 Furosemide [Lasix] 40 mg PO TID 10/11/15 06/21/18 metFORMIN [glucOPHAGE] 1,000 mg PO BID 10/11/15 06/21/18 Levothyroxine [Synthroid] 25 mcg PO DAILY 05/29/16 06/21/18 [id number] Ethyl Esters [OMEGA 3] 1 tab PO BID 11/30/16 06/21/18 Potassium Chloride [K-Dur 20 mEq 20 meq PO DAILY 03/18/17 06/21/18 ER Tab] Folic Acid 1 tab PO DAILY 04/26/17 06/21/18 Meclizine [Meclizine*] 1 tab PO BID PRN 04/26/17 06/21/18 Lipase/Protease/Amylase [Zenpep Dr 1 ecc PO AC 07/22/17 06/21/18 15,000 Unit Capsule] Glimepiride [amaRYL] 4 mg PO BID 06/06/18 06/21/18 Review of Systems - Review of Systems Constitutional: absent: Fevers, Other (chills) Musculoskeletal: Other (Left foot and 2nd toe pain; no leg pain) Physical Exam Vital Signs Reviewed: Yes Vital Signs Temp Pulse Resp BP Pulse Ox 07/26/18 18:02 98.5 F 83 18 126/57 L 100 Temperature: Afebrile Blood Pressure: Hypertensive Pulse: Regular Respiratory Rate: Normal Appearance: Positive for: Well-Appearing Mental Status: Positive for: Alert and Oriented X 3 - Systems Exam Head: Present: Atraumatic Pupils: Present: PERRL Extroacular Muscles: Present: EOMI Conjunctiva: Present: Normal Respiratory/Chest: Present: Clear to Auscultation, Good Air Exchange. No: Respiratory Distress, Accessory Muscle Use Cardiovascular: Present: Regular Rate and Rhythm, Normal S1, S2. No: Murmurs Lower Extremity: Present: Swelling (slight swelling to left foot), Other (scab in first phalanx to 2nd toe of left foot). No: NORMAL PULSES (+2 DP pulses) Neurological: Present: GCS=15, CN II-XII Intact, Speech Normal Skin: Present: Warm, Dry, Normal Color. No: Rashes Psychiatric: Present: Alert, Oriented x 3, Normal Insight, Normal Concentration Medical Decision Making ED Course and Treatment: 07/26/18 18:56 Impression: 83 year old female presenting to the emergency room complaining of left foot 2nd toe pain. Plan: -- Xray of left foot -- Reassess and disposition Prior Visits: Notes and results from previous visits were reviewed. Progress Notes: 07/26/18 19:54 Foot xray reviewed by me, results are negative. 07/26/18 20:08 POC glucose 122. Results of xray d/w patient. Patient instruction to take/apply meds as prescribed by her doctor and stay off LLE d/t current symptoms corresponded to her increasing her walking on LLE. Patient stable for d/c home. Patient is agreeable w/POC. - RAD Interpretation Radiology Orders: 07/26/18 18:54 FOOT LEFT 3 VIEWS ROUTINE [RAD] Stat - Scribe Statement The provider has reviewed the documentation as recorded by the Scribe Yarelis Kip All medical record entries made by the Lucina were at my direction and personally dictated by me. I have reviewed the chart and agree that the record accurately reflects my personal performance of the history, physical exam, medical decision making, and the department course for this patient. I have also personally directed, reviewed, and agree with the discharge instructions and disposition. Disposition/Present on Arrival - Present on Arrival Any Indicators Present on Arrival: No History of DVT/PE: No History of Uncontrolled Diabetes: No Urinary Catheter: No History of Decub. Ulcer: No History Surgical Site Infection Following: None - Disposition Have Diagnosis and Disposition been Completed?: Yes Diagnosis: Diabetic ulcer of left foot Disposition: HOME/ ROUTINE Disposition Time: 20:11 Patient Plan: Discharge Condition: STABLE Discharge Instructions (ExitCare): Diabetic Foot Ulcer (DC) Additional Instructions: CATRACHITA REEVES, thank you for letting us take care of you today. Your provider was Ofelia Aiken MD and you were treated for left foot 2nd digit. The emergency medical care you received today was directed at your acute symptoms. Take you medication as prescribed by your doctors. It may take several days for your symptoms to resolve. Return to the Emergency Department if your symptoms worsen, do not improve, or if you have any other problems. Please contact your doctor for a follow up appointment in 2-3 days. Bring any paperwork you were given at discharge with you along with any medications you are taking to your follow up visit. Our treatment cannot replace ongoing medical care by a primary care provider outside of the emergency department. Thank you for allowing the [facility] team to be part of your care today. If you had an X-Ray or CT scan: A Radiologist will review the ED reading if any change in treatment is needed we will contact you. If you had a blood, urine, or wound culture: It will take several days for the results, if any change in treatment is needed we will contact you. If you had an STI test: It will take 48 hours for the results. Please call after 1 week if you have not heard back. Referrals: Yifan Elias DPM [Staff Provider] - Follow up with primary Dante March DO [Primary Care Provider] - Follow up with primary Forms: [employer] (Yi)
--- NOTE | 2018-07-27 11:38 | RAD ---
Date of service: 07/26/2018 PROCEDURE: Left Foot Radiographs. HISTORY: pain/swelling COMPARISON: None. TECHNIQUE: 3 views obtained. FINDINGS: BONES: Normal. No fracture. JOINTS: Normal. SOFT TISSUES: Normal. OTHER FINDINGS: None. IMPRESSION: Normal left foot radiographs.
== END 2018-07-26 20:27 | disposition home or self-care (01) ==
LOC: ED 18:01
DX: E11.621 Type 2 diabetes mellitus with foot ulcer (principal); L97.529 Non-pressure chronic ulcer of other part of left foot with unspecified severity; E03.9 Hypothyroidism, unspecified; I50.9 Heart failure, unspecified; I10 Essential (primary) hypertension; Z86.73 Personal history of transient ischemic attack (TIA), and cerebral infarction without residual deficits

== ENCOUNTER 2018-08-01 20:41 | Inpatient (IN) | payer MEDICARE, OTHER ==
--- NOTE | 2018-08-01 20:48 | ED PDOC ---
Arrival/HPI - General Time Seen by Provider: 08/01/18 20:43 Historian: Patient, Family, EMS - History of Present Illness Narrative History of Present Illness (Text): 08/01/18 20:47 Betsy Pepe is an 83 year old female, whose past medical history includes CHF, hypertension, CVA, diabetes, atrial fibrillation, neuropathy, hypothyoridism, and glaucoma, who presents to the ED brought in by EMS accompanied by daughter complaining of vision changes. Patient states she has been experiencing right-sided peripheral blurry vision since this morning and daughter notes patient has been confused at times throughout the day. Daughter states they notified the patient's PMD, who advised them to come to the ED for further evaluation. Patient denies any headache, chest pain, shortness of breath, nausea, vomiting, neck pain, or any other complaints. PMD: Dr. March Neurologist: Dr. Nguyen Symptom Onset: Gradual Symptom Course: Unchanged Activities at Onset: Light Context: Home Past Medical History - Provider Review Nursing Documentation Reviewed: Yes - Past History Past History: Non-Contributing - Infectious Disease Hx of Infectious Diseases: None - Tetanus Immunization Tetanus Immunization: Unknown - Past Medical History Past Medical History: No Previous - Cardiac Hx Congestive Heart Failure: Yes Hx Hypertension: Yes - Pulmonary Hx Respiratory Disorders: Yes Hx Bronchitis: Yes - Neurological HX Cerebrovascular Accident: Yes - HEENT Hx HEENT Disorder: Yes (uses glasses) Hx Cataracts: Yes (sx) Hx Glaucoma: Yes - Renal Hx Renal Disorder: No - Endocrine/Metabolic Hx Hypothyroidism: Yes - Hematological/Oncological Hx Blood Disorders: No Hx AIDS: No Hx Anemia: No Hx Cancer: No Hx Chemotherapy: No Hx Cirrhosis: No Hx Hepatitis A: No Hx Hepatitis B: No Hx Hepatitis C: No Hx Metastasis: No Hx Shingles: No Hx Unexplained Bleeding: No - Integumentary Hx Dermatological Disorder: Yes Other/Comment: 06-21-18 LEFT 2ND TOE WITH OLD BLISTER DRYING UP MEASURES 1.5 X 0.8 CM ,3RD TOE IS REDDENED. BOTH ARE SWOLLEN AND PAINFUL EDEMA +2. WAS COOKING CABBAGE WHEN IT FELL ON HER TOES. - Musculoskeletal/Rheumatological Hx Arthritis: Yes - Gastrointestinal Hx Gastrointestinal Disorders: Yes (IBS-CHRONIC WATERY BM) Other/Comment: APPENDECTOMY,CHOLECYSTECTOMY,UMBILICAL HERNIA - Genitourinary/Gynecological Hx Genitourinary Disorders: Yes (frequent urination) - Psychiatric Hx Emotional Abuse: No Hx Physical Abuse: No Hx Substance Use: No - Past Surgical History Past Surgical History: Unable to Obtain - Surgical History Hx Appendectomy: Yes Hx Cholecystectomy: Yes - Anesthesia Hx Anesthesia: Yes Hx Anesthesia Reactions: No Hx Malignant Hyperthermia: No - Suicidal Assessment Feels Threatened In Home Enviroment: No Family/Social History - Physician Review Nursing Documentation Reviewed: Yes Family/Social History: Unknown Family HX Smoking Status: Never Smoked Hx Alcohol Use: No Hx Substance Use: No Hx Substance Use Treatment: No Allergies/Home Meds Allergies/Adverse Reactions: Allergies hydromorphone HCl [From Dilaudid] Allergy (Severe, Verified 08/01/18 20:55) HALLUCINATIONS tramadol Allergy (Severe, Verified 08/01/18 20:55) RASH iodine Allergy (Verified 08/01/18 20:55) RASH silver sulfadiazine [From Silvadene] Allergy (Verified 08/01/18 20:55) RASH Home Medications: Home Meds Medication Instructions Recorded Confirmed Clopidogrel [Plavix] 75 mg PO DAILY 10/11/15 08/01/18 Furosemide [Lasix] 40 mg PO TID 10/11/15 08/01/18 metFORMIN [glucOPHAGE] 1,000 mg PO BID 10/11/15 08/01/18 Levothyroxine [Synthroid] 25 mcg PO DAILY 05/29/16 08/01/18 [id number] Ethyl Esters [OMEGA 3] 1 tab PO BID 11/30/16 08/01/18 Potassium Chloride [K-Dur 20 mEq 20 meq PO DAILY 03/18/17 08/01/18 ER Tab] Folic Acid 1 tab PO DAILY 04/26/17 08/01/18 Meclizine [Meclizine*] 1 tab PO BID PRN 04/26/17 08/01/18 Lipase/Protease/Amylase [Zenpep Dr 1 ecc PO AC 07/22/17 08/01/18 15,000 Unit Capsule] Glimepiride [amaRYL] 4 mg PO BID 06/06/18 08/01/18 Review of Systems - Physician Review All systems were reviewed & negative as marked: Yes - Review of Systems Constitutional: Normal. absent: Fevers Eyes: Vision Changes (+blurry right peripheral vision) ENT: Normal Respiratory: Normal. absent: SOB, Cough Cardiovascular: Normal. absent: Chest Pain Gastrointestinal: Normal. absent: Abdominal Pain, Diarrhea, Nausea, Vomiting Genitourinary Female: Normal. absent: Dysuria, Frequency, Hematuria, Urine Output Changes Musculoskeletal: Normal. absent: Back Pain, Neck Pain Skin: Normal. absent: Rash Neurological: Other (+confusion) Endocrine: Normal Hemo/Lymphatic: Normal Psychiatric: Normal Physical Exam Vital Signs Reviewed: Yes Temperature: Afebrile Blood Pressure: Normal Pulse: Regular Respiratory Rate: Normal Appearance: Positive for: Well-Appearing, Non-Toxic, Comfortable Pain Distress: None Mental Status: Positive for: Alert and Oriented X 3 - Systems Exam Head: Present: Atraumatic, Normocephalic Pupils: Present: PERRL, Other (Visual defect in right lateral eye field/fundi-no hemorrhages noted) Extroacular Muscles: Present: EOMI Conjunctiva: Present: Normal Mouth: Present: Moist Mucous Membranes Neck: Present: Normal Range of Motion Respiratory/Chest: Present: Clear to Auscultation, Good Air Exchange. No: Respiratory Distress, Accessory Muscle Use Cardiovascular: Present: Regular Rate and Rhythm, Normal S1, S2. No: Murmurs Abdomen: No: Tenderness, Distention, Peritoneal Signs Back: Present: Normal Inspection Upper Extremity: Present: Normal Inspection. No: Cyanosis, Edema Lower Extremity: Present: Normal Inspection. No: Edema Neurological: Present: GCS=15, CN II-XII Intact, Speech Normal, Motor Func Grossly Intact, Normal Cerebellar Funct Skin: Present: Warm, Dry, Normal Color. No: Rashes Psychiatric: Present: Alert, Oriented x 3, Normal Insight, Normal Concentration Medical Decision Making ED Course and Treatment: 08/01/18 20:45 Impression: 83 year old female complaining of blurry vision in the right periphery and confusion. Plan: -- CT Head w/o contrast -- EKG -- Chest X-ray -- Labs, blood type and screen, lipid panel, troponin -- IV fluids -- Reassess and disposition Prior Visits: Notes and results from previous visits were reviewed. Progress Notes: 08/01/18 20:45 Pt seen on arrival to Emergency department. Code Stroke called. Pt taken to CT scan. 08/01/18 21:13 Reviewed EKG, NSR at 73 bpm. 1st degree AV block. No acute changes. 08/01/18 22:02 CT Head: BRAIN: No acute intraparenchymal hemorrhage. No mass lesion. No CT evidence for acute territorial infarct. No midline shift or extra-axial collections. A zone of decreased attenuation is seen in the posterior right parietal-occipital region compatible with post ischemic infarction and encephalomalacia. Similarly, a smaller old postischemic infarction zone of encephalomalacia is noted in the left occipital lobe. An additional small zone of postischemic infarction encephalomalacia is seen in the left frontal parietal region. There is moderate age-appropriate diffuse cerebral/cerebellar atrophy. There are bilateral confluent periventricular and subcortical white matter hypolucencies compatible with severe chronic microvascular disease. VENTRICLES: No hydrocephalus. VASCULAR: Atherosclerotic vascular plaquing is noted within the carotid siphons bilaterally. ORBITS: The orbits are unremarkable. SINUSES AND MASTOIDS: Opacification is seen in the posterior left ethmoid sinuses thought compatible with sinusitis. A 7.7 mm mucous retention cyst or polyp is seen in the medial left frontal sinus. The remaining paranasal sinuses and mastoid air cells are clear. BONES: No fracture. SOFT TISSUES: Unremarkable. IMPRESSION: 1. No acute intracranial abnormality. 2. Multiple prior ischemic infarctions as described above; the largest located in the posterior right parietal-occipital region. 3. Moderate diffuse age-appropriate cerebral and cerebellar atrophy. 4. Severe chronic microvascular disease. 5. Atherosclerotic vascular plaquing as described above. Communicated to Dr Villegas 9-28pm EST. Electronically signed on Aug 01, 2018 9:33:03 PM EDT by: Theo Das M.D., M.B.A., Certified By [employer] Trained MRI and CT Specialist 08/01/18 22:06 Chest X-ray reviewed, shows no acute processes. Call placed to Dr. Lambert, neurologist hand expansion envelope maker. Awaiting call back. 08/01/18 23:[address] March, who is aware and agrees with plan. Accepts pt in to his service. Requests Dr. Nguyen on consult. 08/01/18 23:[address] Lambert, neurologist hand expansion envelope maker, who is aware and agrees with plan. States pt is not a candidate for tPA. Recommends pt receive Aspirin. - Critical Care Critical Care Minutes: 30 minutes - Lab Interpretations I have reviewed the lab results: Yes - RAD Interpretation Terminal Carman: ED Physician, Radiologist - EKG Interpretation Interpreted by ED Physician: Yes Type: 12 lead EKG NIHSS Scale (Herman) Time Performed: 20:45 - How Severe is the Stoke Baseline Level of Consciousness: 0=Alert LOC to Questions: 0=Both comments correct LOC to commands: 0=Obeys both correctly Best Gaze: 0=Normal Visual: 1=Partial hemianopia Facial: 0=Normal Motor Arm - Left: 0=No drift Motor Arm - Right: 0=No drift Motor Leg - Left: 0=No drift Motor Leg - Right: 0=No drift Limb Ataxia: 0=Absent Sensory: 0=Normal Best Language: 0=No aphasia Dysarthia: 0=Normal articulation Extinction & Inattention (Neglect): 0=Normal, no object Score: 1 Risk Level: Minor Stroke Risk rTPA Inclusion/Exclusion - Refusal of Treatment Patient Refused Treatment: No - Inclusion Criteria for Altepase All of the below criteria for inclusion were reviewed: Yes Patient is 18 years or Older: Yes The Clinical Diagnosis of Ischemic Stroke That is Causing a Potentially Disabling Neurological Deficit: Yes Time of Onset is Well Established to be Less Than 270 Minute Before Treatment Would Begin: Yes Risk/Benefit Discussed With Patient/Family Member Present: Yes - Exclusion Criteria for Altepase Current Intracranial Hemorrhage: No Subarachnoid hemorrhage: No Active Internal Bleeding: No Recent (within 3 months) Intracranial or Intraspinal Surgery: No Current Severe Uncontrolled Hypertension: No - Warning to TPA With Conditions Following Conditions Weighed Against Anticipated Benefit: Yes Condition: Patients currently receiving anticoagulants - Scribe Statement The provider has reviewed the documentation as recorded by the Lucina Tomas Provider Scribe Attestation: All medical record entries made by the Lucina were at my direction and personally dictated by me. I have reviewed the chart and agree that the record accurately reflects my personal performance of the history, physical exam, medical decision making, and the department course for this patient. I have also personally directed, reviewed, and agree with the discharge instructions and disposition. Disposition/Present on Arrival - Present on Arrival Any Indicators Present on Arrival: No History of DVT/PE: No History of Uncontrolled Diabetes: No Urinary Catheter: No History of Decub. Ulcer: No History Surgical Site Infection Following: None - Disposition Have Diagnosis and Disposition been Completed?: Yes Diagnosis: Partial hemianopia, TIA (transient ischemic attack) Disposition: HOSPITALIZED Disposition Time: 23:15 Patient Problems: Current Active Problems Problem Status Onset Partial hemianopia Acute TIA (transient ischemic attack) Acute Condition: STABLE
[2018-08-01 20:49] VITALS: BMI 36.4
[2018-08-01 21:11] LABS: BASO # 0.03 {null, K/mm3} (0.0-2.0); BASO % 0.4 % (0.0-3.0); EOS # 0.2 (0.0-0.7); LYMPH # 1.5 (1.2-3.4); LYMPH % 18.1 % (22.0-35.0); MEAN CELL VOLUME 87.8 fl (80.0-105.0); MEAN CORPUSCULAR HEMOGLOBIN 27.6 pg (25.0-35.0); MEAN CORPUSCULAR HGB CONC 31.4 g/dl (31.0-37.0); MEAN PLATELET VOLUME 9.5 fl (7.0-11.0); MONO # 0.4 (0.1-0.6); MONO % 5.3 % (1.0-6.0); RBC 3.62 {null, 10^6/uL} (3.5-6.1); RED CELL DISTRIBUTION WIDTH 15.6 % (11.5-14.5); WHITE BLOOD COUNT 8.4 {null, 10^3/uL} (4.5-11.0)
[2018-08-01] MEDS: Sodium Chloride 0.9% 1,000 ML IV SCH (21:11)
[2018-08-01 21:22] LABS: ALB/GLOB RATIO 1.2 (1.1-1.8); ALBUMIN 4.3 g/dL (3.0-4.8); ALT/SGPT 9 U/L (7-56); AST/SGOT 22 U/L (14-36); BLOOD UREA NITROGEN 31 mg/dL (7-21); CALCIUM 9.6 mg/dL (8.4-10.5); GFR NON-AFRICAN AMERICAN 39; HDL CHOLESTEROL 30 mg/dL (29-60)
[2018-08-01 21:23] LABS: INR 1.35; PARTIAL THROMBOPLASTIN TIME 44.3 Seconds (26.9-38.3)
[2018-08-01 21:33] LABS: LDL CHOLESTEROL 30 mg/dL (0-129)
[2018-08-01 21:35] LABS: TROPONIN I < 0.01 ng/mL
[2018-08-02] MEDS: Sodium Chloride 0.9% 1,000 ML IV SCH ×2 (08:22→12:14)
[2018-08-02] MEDS: Potassium Chloride 20 mEq ER Tab PO SCH (08:22)
[2018-08-02 09:18] LABS: ALB/GLOB RATIO 1.2 (1.1-1.8); ALBUMIN 3.8 g/dL (3.0-4.8)
--- NOTE | 2018-08-02 09:27 | RAD ---
Date of service: 08/01/2018 HISTORY: Code Stroke COMPARISON: Chest radiograph dated 01/13/2018. TECHNIQUE: 1 view obtained. FINDINGS: LUNGS: No active pulmonary disease. PLEURA: No significant pleural effusion identified, no pneumothorax apparent. CARDIOVASCULAR: Aortic atherosclerotic calcifications. Cardiomediastinal silhouette stably enlarged. OSSEOUS STRUCTURES: Unchanged. VISUALIZED UPPER ABDOMEN: Normal. OTHER FINDINGS: None. IMPRESSION: No active disease.
--- NOTE | 2018-08-02 09:27 | CT ---
Date of service: 08/01/2018 PROCEDURE: CT HEAD WITHOUT CONTRAST. HISTORY: Code Stroke COMPARISON: CT head dated 07/22/2017. TECHNIQUE: Axial computed tomography images were obtained through the head/brain without intravenous contrast. Radiation dose: Total exam DLP = 1012.87 mGy-cm. This CT exam was performed using one or more of the following dose reduction techniques: Automated exposure control, adjustment of the mA and/or kV according to patient size, and/or use of iterative reconstruction technique. FINDINGS: HEMORRHAGE: No intracranial hemorrhage. BRAIN: No mass effect or edema. Atrophy. Chronic microvascular ischemic changes. Stable areas of encephalomalacia in the high left frontal, left occipital, right parieto-occipital and right cerebellar regions. VENTRICLES: Prominent. No hydrocephalus. CALVARIUM: Unremarkable. PARANASAL SINUSES: Scattered ethmoid air cell opacification. Small polyp or retention cyst in the left frontal sinus. MASTOID AIR CELLS: Unremarkable as visualized. No inflammatory changes. OTHER FINDINGS: None. IMPRESSION: No acute intracranial pathology. Age-related changes. Old bilateral infarcts as above described. No significant interval change. Mild bilateral ethmoid sinus disease.
[2018-08-02] MEDS: Amoxicillin-Clav 500-125 mg Tab PO SCH ×2 (09:52→17:25)
[2018-08-02] MEDS: Omega-3-Acid Ethyl Esters 1 GM Cap PO SCH ×2 (09:53→17:31)
[2018-08-02 10:02] LABS: BASO # 0.02 {null, K/mm3} (0.0-2.0); BASO % 0.3 % (0.0-3.0); EOS # 0.2 (0.0-0.7); EOS % 2.8 % (1.5-5.0); HEMOGLOBIN 9.5 g/dL (12.0-16.0); LYMPH # 1.7 (1.2-3.4); LYMPH % 21.3 % (22.0-35.0); MEAN CELL VOLUME 89.9 fl (80.0-105.0); MEAN CORPUSCULAR HEMOGLOBIN 28.3 pg (25.0-35.0); MEAN CORPUSCULAR HGB CONC 31.5 g/dl (31.0-37.0); MEAN PLATELET VOLUME 10.7 fl (7.0-11.0); MONO # 0.7 (0.1-0.6); MONO % 8.6 % (1.0-6.0); RBC 3.36 {null, 10^6/uL} (3.5-6.1); RED CELL DISTRIBUTION WIDTH 15.7 % (11.5-14.5); WHITE BLOOD COUNT 7.8 {null, 10^3/uL} (4.5-11.0)
--- NOTE | 2018-08-02 11:29 | CP.PCM.CON ---
History of Present Illness - History of Present Illness History of Present Illness: Podiatry Consult Note: Drs. Diaz/Curt 83 year old female patient, with PMHx of DM, seen and examined at bedside for L foot 2nd digit ulceration. Patient states that around mid June she was cooking and dropped a pot of hot water on her toes and resulted in a burn. Over the past month or so, the blisters/sultana resolved, however she is left with a wound to the dorsal aspect of her L 2nd digit at this time secondary to the incident. She denies any pain to the area. Denies nausea/vomiting/fever/shortness of breath/chills. /d/c/sob/reece/cp. Review of Systems - Constitutional Constitutional: As Per HPI Past Patient History - Infectious Disease Hx of Infectious Diseases: None - Tetanus Immunizations Tetanus Immunization: Unknown - Past Social History Smoking Status: Never Smoked - CARDIAC Hx Congestive Heart Failure: Yes Hx Hypertension: Yes - PULMONARY Hx Respiratory Disorders: Yes Hx Bronchitis: Yes - NEUROLOGICAL HX Cerebrovascular Accident: Yes - HEENT Hx HEENT Problems: Yes (uses glasses) Hx Cataracts: Yes (sx) Hx Glaucoma: Yes - RENAL Hx Chronic Kidney Disease: No - ENDOCRINE/METABOLIC Hx Hypothyroidism: Yes - HEMATOLOGICAL/ONCOLOGICAL Hx Blood Disorders: No Hx AIDS: No Hx Anemia: No Hx Cancer: No Hx Chemotherapy: No Hx Cirrhosis: No Hx Hepatitis A: No Hx Hepatitis B: No Hx Hepatitis C: No Hx Metastesis: No Hx Shingles: No Hx Unexplained Bleeding: No - INTEGUMENTARY Hx Dermatological Problems: Yes Other/Comment: 06-21-18 LEFT 2ND TOE WITH OLD BLISTER DRYING UP MEASURES 1.5 X 0.8 CM ,3RD TOE IS REDDENED. BOTH ARE SWOLLEN AND PAINFUL EDEMA +2. WAS COOKING CABBAGE WHEN IT FELL ON HER TOES. - MUSCULOSKELETAL/RHEUMATOLOGICAL Hx Arthritis: Yes - GASTROINTESTINAL Hx Gastrointestinal Disorders: Yes (IBS-CHRONIC WATERY BM) Other/Comment: APPENDECTOMY,CHOLECYSTECTOMY,UMBILICAL HERNIA - GENITOURINARY/GYNECOLOGICAL Hx Genitourinary Disorders: Yes (frequent urination) - PSYCHIATRIC Hx Emotional Abuse: No Hx Physical Abuse: No Hx Substance Use: No - SURGICAL HISTORY Hx Appendectomy: Yes Hx Cholecystectomy: Yes - ANESTHESIA Hx Anesthesia: Yes Hx Anesthesia Reactions: No Hx Malignant Hyperthermia: No Meds Allergies/Adverse Reactions: Allergies Allergy/AdvReac Type Severity Reaction Status Date / Time hydromorphone HCl Allergy Severe HALLUCINATI Verified 08/01/18 20:55 [From Dilaudid] ONS tramadol Allergy Severe RASH Verified 08/01/18 20:55 iodine Allergy RASH Verified 08/01/18 20:55 silver sulfadiazine Allergy RASH Verified 08/01/18 20:55 [From Silvadene] - Medications Medications: Current Medications Amoxicillin/Clavulanate Potassium (Augmentin 500 Mg-125 Mg Tab) 1 tab PO BID [facility]; Protocol Last Admin: 08/02/18 09:52 Dose: 1 tab Amylase (Pancrease 23030 U-5000 [id number] U) 5,000 unit PO AC [facility] Apixaban (Eliquis) 2.5 mg PO BID [facility]; Protocol Last Admin: 08/02/18 09:52 Dose: 2.5 mg Clopidogrel Bisulfate (Plavix) 75 mg PO DAILY [facility] Last Admin: 08/02/18 09:53 Dose: 75 mg Folic Acid (Folic Acid) 1 mg PO DAILY [facility] Last Admin: 08/02/18 09:52 Dose: 1 mg Furosemide (Lasix) 40 mg PO TID [facility] Last Admin: 08/02/18 09:52 Dose: 40 mg Gabapentin (Neurontin) 300 mg PO TID [facility]; Protocol Last Admin: 08/02/18 09:53 Dose: 300 mg Glimepiride (Amaryl) 4 mg PO BID [facility] Last Admin: 08/02/18 09:51 Dose: 4 mg Sodium Chloride (Sodium Chloride 0.9%) 1,000 mls @ 40 mls/hr IV .Q24H [facility] Insulin Human Regular (Humulin R Med) 0 units SC ACHS [facility]; Protocol Levothyroxine Sodium (Synthroid) 25 mcg PO 0600 [facility] Meclizine HCl (Antivert) 25 mg PO BID [facility] Last Admin: 08/02/18 09:52 Dose: 25 mg Metformin HCl (Glucophage) 1,000 mg PO BID [facility] Last Admin: 08/02/18 09:52 Dose: 1,000 mg [id number]-[id number] Ethyl Esters (Lovaza) 1 gm PO BID [facility] Last Admin: 08/02/18 09:53 Dose: 1 gm Potassium Chloride (K-Dur 20 Meq Er Tab) 20 meq PO BRK [facility] Last Admin: 08/02/18 08:22 Dose: 20 meq Physical Exam - Constitutional Appears: Non-toxic, No Acute Distress - Head Exam Head Exam: ATRAUMATIC, NORMOCEPHALIC - Extremities Exam Additional comments: LLE focused VASC: DP and PT pulse faintly secondary to edema. CFT <3 seconds to digits. Temperature gradient warm to warm, no significant increase in warmth noted to areas of erythema. +1 pitting edema noted to lower extremity. NEURO: Light touch and protective sensation intact. DERM: Partial thickness burn noted to dorsum of left 2nd digit measuring approximately 2 x 2 x 0.1 cm - noted to have a dry, granular base and erythema periwound. ORTHO: No pain upon palpation of digits. MMT 5/5 - Neurological Exam Neurological exam: Alert, Oriented x3 - Psychiatric Exam Psychiatric exam: Normal Affect, Normal Mood Results - Vital Signs Recent Vital Signs: Last Vital Signs Temp 97.5 F L 08/02/18 06:00 Pulse 74 08/02/18 06:00 Resp 18 08/02/18 06:00 BP 120/70 08/02/18 09:52 Pulse Ox 96 08/02/18 00:20 - Labs Result Diagrams: 08/02/18 08:30 08/02/18 08:30 Labs: Laboratory Results - last 24 hr 08/01/18 08/01/18 08/01/18 20:49 21:06 21:06 WBC 8.4 D RBC 3.62 Hgb 10.0 L Hct 31.8 L MCV 87.8 MCH 27.6 MCHC 31.4 RDW 15.6 H Plt Count 199 MPV 9.5 Neut % (Auto) 74.2 H Lymph % (Auto) 18.1 L Swift % (Auto) 5.3 Eos % (Auto) 2.0 Baso % (Auto) 0.4 Lymph # (Auto) 1.5 Swift # (Auto) 0.4 Eos # (Auto) 0.2 Baso # (Auto) 0.03 Absolute Neuts (auto) 6.20 PT 15.0 H INR 1.35 APTT 44.3 H Sodium Potassium Chloride Carbon Dioxide Anion Gap BUN Creatinine Est GFR ( Amer) Est GFR (Non-Af Amer) POC Glucose (mg/dL) 218 H Random Glucose Calcium Phosphorus Magnesium Total Bilirubin AST ALT Alkaline Phosphatase Troponin I Total Protein Albumin Globulin Albumin/Globulin Ratio Triglycerides Cholesterol LDL Cholesterol Direct HDL Cholesterol Blood Type Antibody Screen BBK History Checked 08/01/18 08/01/18 08/02/18 21:06 21:06 08:30 WBC 7.8 RBC 3.36 L Hgb 9.5 L Hct 30.2 L MCV 89.9 MCH 28.3 MCHC 31.5 RDW 15.7 H Plt Count MPV 10.7 Neut % (Auto) 67.0 Lymph % (Auto) 21.3 L Swift % (Auto) 8.6 H Eos % (Auto) 2.8 Baso % (Auto) 0.3 Lymph # (Auto) 1.7 Swift # (Auto) 0.7 H Eos # (Auto) 0.2 Baso # (Auto) 0.02 Absolute Neuts (auto) 5.24 PT INR APTT Sodium 141 Potassium 3.5 L Chloride 101 Carbon Dioxide 27 Anion Gap 17 BUN 31 H Creatinine 1.3 H Est GFR ( Amer) 47 Est GFR (Non-Af Amer) 39 POC Glucose (mg/dL) Random Glucose 188 H Calcium 9.6 Phosphorus Magnesium Total Bilirubin 0.4 AST 22 ALT 9 Alkaline Phosphatase 81 Troponin I < 0.01 D Total Protein 7.9 Albumin 4.3 Globulin 3.6 Albumin/Globulin Ratio 1.2 Triglycerides 269 H Cholesterol 96 L LDL Cholesterol Direct 30 HDL Cholesterol 30 Blood Type O POSITIVE Antibody Screen Negative BBK History Checked Patient has bt 08/02/18 08:30 WBC RBC Hgb Hct MCV MCH MCHC RDW Plt Count MPV Neut % (Auto) Lymph % (Auto) Swift % (Auto) Eos % (Auto) Baso % (Auto) Lymph # (Auto) Swift # (Auto) Eos # (Auto) Baso # (Auto) Absolute Neuts (auto) PT INR APTT Sodium 142 Potassium 3.3 L Chloride 104 Carbon Dioxide 26 Anion Gap 15 BUN 30 H Creatinine 1.2 Est GFR ( Amer) 52 Est GFR (Non-Af Amer) 43 POC Glucose (mg/dL) Random Glucose 94 Calcium 9.0 Phosphorus 4.4 Magnesium 1.3 L Total Bilirubin 0.4 AST 16 ALT 18 Alkaline Phosphatase 65 Troponin I Total Protein 7.0 Albumin 3.8 Globulin 3.2 Albumin/Globulin Ratio 1.2 Triglycerides Cholesterol LDL Cholesterol Direct HDL Cholesterol Blood Type Antibody Screen BBK History Checked Assessment & Plan - Assessment and Plan (Free Text) Assessment: 83F with superficial wound to left 2nd digit secondary to previous burn; stable/eschar present Plan: Patient seen and evaluated with Dr. Curt BOLDEN, WBC 7.8 C/w IV abx Wound cx (06/21/18): staph aureus Vasc consult Local wound care: bactroban, optifoam Podiatry will continue to follow Thank you for the consult - Date & Time Date: 08/02/18 Time: 11:29
[2018-08-02] MEDS ORDERED: Amylase/Lipase/Protease 5,000 Units ECC PO SCH (11:30)
--- NOTE | 2018-08-02 11:57 | HP ---
HISTORY OF PRESENT ILLNESS: I got a call from her daughter last night that she was acting strange and talking funny of seeing things. She has done this before. She has had TIAs in the past. She is an 83-year-old white female who I know from house calls who presents with changes in vision also confusion as per the daughter, the daughter is very good, they see each other every day. She is having vision changes in the right eye. She has questionable right-sided facial droop also at one moment. She is an 83-year-old female with the past medical history of CHF, hypertension, CVA, diabetes, atrial fibrillation, neuropathy, hypothyroidism, glaucoma, morbidly obese, right toe ulcer, comes in with vision changes and confusion. As this is kind of a sudden change yesterday evening. She had seen Dr. Nguyen in the past for this. He has hypertension, CHF, bronchitis, sinusitis, CVA. She wears glasses, cataracts, glaucoma, hypothyroidism. She has a ulcer of the left second toe. She has irritable bowel syndrome, appendectomy, cholecystectomy, umbilical hernia surgeries. She has frequent urination. FAMILY HISTORY: Hypertension in the family. SOCIAL HISTORY: Never smoked. No drinking. No drugs. ALLERGIES: TO DILAUDID, TRAMADOL, IODINE AND SILVADENE CREAM. MEDICATIONS: She is on Plavix, Lasix, Glucophage, Synthroid, omega-3, potassium, folic acid, meclizine, Amaryl, Pancrease, Eliquis. She has a right peripheral vision on the right eye. She did have confusion and right facial droop, which seems to be better now that I am seeing her. No shortness of breath. No cough. No chest pain or palpitations. No abdominal pain, nausea, vomiting, constipation, diarrhea at this time. She does get diarrhea from time to time. She does have increase in urination at her baseline, but no issues now. Does not feel like urinary tract infection. No back pain. No neck pain. No rashes. There is a right second toe ulcer anteriorly. She is confused when she came in. She is better now with the confusion, the left to the right eye blurriness is still persistent, little anxious. PHYSICAL EXAMINATION: VITAL SIGNS: She has a 97.5 temperature, 74 pulse, 120/74 blood pressure, 18 respiratory rate, 97% O2 sat on room air. GENERAL: She is well-appearing, nontoxic, comfortable at this time. Alert and oriented x3 maybe a little nervous to the change in her vision, sudden change. HEENT: Head is atraumatic, normocephalic. No falls. Extra muscles are intact. Visual defect in the right lateral eye field, no hemorrhages. Extraocular muscles are intact. Throat is moist. NECK: Supple. HEART: Regular rate. Normal S1, S2. LUNGS: Decreased breath sounds, but clear to auscultation with poor inspiration. ABDOMEN: Soft, nontender, positive bowel sounds. No guarding, no rebound, no CVA tenderness. She is also morbidly obese. EXTREMITIES: No edema in the lower extremities. GCS is 15. Cranial nerves II-XII grossly intact. Speech is normal. Tongue is midline. She can close her eyes tight. She can raise her arms overhead. Just a peripheral lateral vision on the right eye is off. SKIN: Warm and dry. She has ulcer in the right second toe anteriorly. Alert and oriented x3. Not confused at this time. LABORATORY DATA: She had multiple tests done. The chest x-ray showed no acute disease. EKG showed normal sinus rhythm 73 beats per minute. First degree AV block. CAT scan of the head showed no acute intracranial abnormality, prior ischemic infarctions in the past. Appropriate age, cerebellar and cerebral atrophy. She has a 142 sodium, potassium was 3.5, then it went to 3.3, I gave her potassium replacement, BUN is better with 31.2, improving. GFR is up to 52. Sugar is 94, came in it was 218; calcium is 9; phosphorus 4, magnesium 1.3, total bili is 0.4. AST is 16, ALT is 18, alk phos 65. Troponin I is less than 0.01. Total protein 7, albumin is 3.8. White count is 8.4, hemoglobin 10, hematocrit 31.8, platelets of 199. INR is 1.35. She has multiple consults Neurology, eye doctor, biopharmaceutical rep. She is on Amaryl, Antivert, aspirin Augmentin for the sinusitis, Eliquis; folic acid; Glucophage; insulin coverage; potassium replacement; Lasix; Neurontin; Pancrease; Plavix; IV fluids at 100, I will decrease the rate and levothyroxine. We will check her labs tomorrow, Physical Therapy, eye doctor, neurologist. Hopefully, this will be a TIA and resolve. We will keep a close eye on her. Dante March DO MTDKayla
[2018-08-02] MEDS: Insulin Reg-MEDIUM-Coverage SC SCH ×2 (12:12→17:28)
[2018-08-02] MEDS ORDERED: Potassium Chloride 20 mEq ER Tab PO ONE (14:26)
--- NOTE | 2018-08-02 15:04 | CARD ---
APPROVED REPORT Date of service: 08/01/2018 EKG Measurement Heart [id number] <Conclusion> Sinus rhythm with 1st degree AV block Otherwise normal ECG
--- NOTE | 2018-08-02 15:14 | CON ---
DATE: 08/02/2018 NEUROLOGY CONSULT CHIEF COMPLAINT: Right side peripheral visual loss. HISTORY OF PRESENT ILLNESS: An 83-year-old woman who is well known to me from the past with past medical history of hypertension, CHF, CVA in the right occipital region in the past, history of lacunar infarct associated in the right parietal, left parietal, left occipital and right cerebellar regions superimposed underlying encephalomalacia in the right occipital region 07/23/2017; history of diabetes mellitus, diabetic peripheral neuropathy on gabapentin, who comes into the hospital for difficulty with peripheral vision on the right side, visual field defect based on neuro exam. No focal weakness seen on neuro exam. No change in speech or taste. CAT scan of the head showed bilateral encephalomalacia in the right MCA and left [employer] territory. No acute intracranial abnormalities. MRI of the brain is currently pending. PAST MEDICAL HISTORY: As above. ALLERGIES: ALLERGY NOTED TO HAVE HYDROMORPHONE, TRAMADOL, IODINE AND SILVADENE. REVIEW OF SYSTEMS: A 14-point review of systems is negative except as per the HPI. SOCIAL HISTORY: No illicit drug use, smoking, or EtOH abuse. MEDICATIONS: Reviewed by nurses' reconciliation sheet. FAMILY HISTORY: Noncontributory. PHYSICAL EXAMINATION GENERAL: The patient is seen up in bed, in no acute distress. VITAL SIGNS: Temperature 97.5, pulse rate 74, blood pressure 120/74, respiratory rate of 18. HEENT: Atraumatic and normocephalic. PERRLA. Extraocular muscles are intact. NECK: Supple. No JVD. No adenopathy noted. LUNGS: Clear to auscultation. No adventitious sounds. HEART: S1 and S2. Normal rate and rhythm. No murmurs, rubs or gallops. ABDOMEN: Soft and nontender. Nondistended. Bowel sounds present. EXTREMITIES: No clubbing. No cyanosis. Peripheral pulses 2+ felt bilaterally. NEUROLOGIC: The patient is alert and oriented to person, place,but not year. Speech is fluent without any errors. Cranial nerves II through XII are intact except for right visual field deficit seen on neuro exam. Motor exam; moves all extremities equally. Moderate reduced left finger tap when compared to the right. Sensory exam; decreased light touch to pinprick up to the calves bilaterally. Decreased vibration at the toes. DTRs are 2+ throughout and 1 at both knees and ankles. Coordination; [id number] is intact. No dysmetria noted. Gait is deferred for now. LABORATORY DATA: Sodium is 142, potassium 3.3, chloride 104, carbon dioxide 26, BUN of 30, creatinine 1.2, random glucose 94. 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 No peripheral retinal or eye defect from given that she is diabetic. RECOMMENDATIONS: At this time, we will recommend: 1. MRI of the brain to assess for any new structural infarcts causing right visual defect. 2. Ophthalmology consult to assess for any peripheral causes for her right visual defect. 3. Continue aspirin 81 and Eliquis and Lipitor 40 for stroke prevention. 4. PT/OT evaluation and followup as needed. Chai Nguyen MD
[2018-08-02] MEDS: Mupirocin 2% Ointment 15 GM TUBE TOP SCH (17:27)
[2018-08-02] MEDS: ZENPEP 15000 UNIT PO SCH (17:28)
[2018-08-02] MEDS: LUMIGAN 0.01% OU SCH (21:16)
[2018-08-03] MEDS: Levothyroxine 25 MCG TAB PO SCH (05:32)
[2018-08-03 07:25] LABS: HEMOGLOBIN 8.8 g/dL (12.0-16.0); MEAN CELL VOLUME 87.9 fl (80.0-105.0); MEAN CORPUSCULAR HEMOGLOBIN 27.9 pg (25.0-35.0); MEAN CORPUSCULAR HGB CONC 31.8 g/dl (31.0-37.0); MEAN PLATELET VOLUME 9.9 fl (7.0-11.0); RBC 3.15 {null, 10^6/uL} (3.5-6.1); RED CELL DISTRIBUTION WIDTH 15.7 % (11.5-14.5)
[2018-08-03 07:58] LABS: ALB/GLOB RATIO 1.2 (1.1-1.8); ALBUMIN 3.7 g/dL (3.0-4.8)
[2018-08-03] MEDS: Omega-3-Acid Ethyl Esters 1 GM Cap PO SCH ×2 (10:28→17:20)
[2018-08-03] MEDS: Mupirocin 2% Ointment 15 GM TUBE TOP SCH ×2 (10:28→17:22)
[2018-08-03] MEDS: Potassium Chloride 20 mEq ER Tab PO SCH (10:29)
[2018-08-03] MEDS: Insulin Reg-MEDIUM-Coverage SC SCH ×4 (10:30→22:14)
[2018-08-03] MEDS: ZENPEP 15000 UNIT PO SCH ×3 (10:30→17:20)
[2018-08-03] MEDS: Sodium Chloride 0.9% 1,000 ML IV SCH ×2 (10:31→15:17)
[2018-08-03] MEDS ORDERED: Potassium Chloride 20 mEq ER Tab PO ONE (11:08)
--- NOTE | 2018-08-03 12:04 | MRI ---
Date of service: 08/02/2018 PROCEDURE: MRI BRAIN WITHOUT CONTRAST HISTORY: Right visual field cut COMPARISON: Comparison made with prior CT scan of the brain dated the 08/01/2018. TECHNIQUE: Limited axial T2, FLAIR and diffusion-weighted sequences were obtained due to technical difficulties during examination (machine shutdown) per technologist notation. FINDINGS: HEMORRHAGE: No definitive radiographic evidence of acute parenchymal, subarachnoid or extra-axial hemorrhage. DWI: There is a focal area restricted diffusion left occipital pole consistent with an acute infarct. BRAIN PARENCHYMA: Redemonstrated are chronic appearing infarcts right posterior temporoparietal infarct extending superiorly into the right parieto-occipital watershed zone. The chronic right cerebellar infarct is also present. Mild diffuse/confluent chronic periventricular white matter ischemic changes seen extending peripherally into the deep and to a lesser degree subcortical white matter both cerebral hemispheres. There is also a discrete small chronic appearing infarct left superior frontal lobe at the vertex.. Minor chronic brainstem ischemic changes are also seen. Moderate to fairly significant generalized volume loss VENTRICLES: No obstructive hydrocephalus. CRANIUM: Unremarkable. ORBITS: Changes of right-sided cataract surgery again noted. PARANASAL SINUSES/MASTOIDS: Mild mucosal thickening within multiple right-sided ethmoid air cells extending superiorly into the inferior margin of the left aspect of the hypoplastic appearing frontal sinuses. VASCULAR SYSTEM: Visualized major vascular flow voids at skull base patent. OTHER FINDINGS: None. IMPRESSION: Limited study as above. There is a acute infarct left occipital pole. Redemonstrated are chronic appearing infarcts right posterior temporoparietal infarct extending superiorly into the right parieto-occipital watershed zone. The chronic right cerebellar infarct is also present. Mild diffuse/confluent chronic periventricular white matter ischemic changes seen extending peripherally into the deep and to a lesser degree subcortical white matter both cerebral hemispheres. There is also a discrete small chronic appearing infarct left superior frontal lobe at the vertex.. Minor chronic brainstem ischemic changes are also seen. Moderate to fairly significant generalized volume loss Note that these findings were discussed with 4 Carlos A Shin at approximately 11:49 a.m. 08/03/2018. Findings also discussed with Dr. Nguyen at approximately 11:54 p.m. with written down and read back verification
--- NOTE | 2018-08-03 13:50 | PN ---
DATE: 08/03/2018 SUBJECTIVE: I saw her sitting out of bed to chair. She has very much and very poor right eye lateral vision loss. It is very possible she had a stroke. There is an MRI of the brain pending. It has been persisted for more than 24 hours. I discussed that with the patient. She also is having a balance problem and physical therapy recommended TCU. She might need [facility]. PHYSICAL EXAMINATION: VITAL SIGNS: She has a 97.6 temperature, 71 pulse, 116/50 blood pressure, 18 respiratory rate, and 98% O2 sat. HEENT: Head is atraumatic and normocephalic. Poor vision on the right eye, cannot see anything laterally on the right. Throat is moist. NECK: Supple. HEART: Regular rate and rhythm. LUNGS: Decreased breath sounds. ABDOMEN: Soft, obese, nontender. EXTREMITIES: Trace edema, if any. MEDICATIONS: She is currently on Amaryl, Antivert, Bactroban, Eliquis, folic acid, Glucophage, aspirin, insulin, potassium replacement, Lasix, Lovaza, Plavix, IV fluids, and Synthroid. She was on Eliquis and Plavix but still had this event. LABORATORY DATA: Sodium 140, potassium 3.5, replace the potassium, BUN 27, creatinine 1.1, GFR is 48. Sugar is 116, calcium is 9, total bili is 0.3, AST is 18, ALT is 14, alk phos 61, total protein 6.8. She has an 8 white count, 8.8 hemoglobin, 27.7 hematocrit with 148 platelets. ASSESSMENT AND PLAN: She is being seen by Podiatry and Neurology. Wait for the MRI to come back. I am hoping to get her to TCU tomorrow that is what is recommended by physical therapy. She might need [facility]. We will see how she progresses, which is subacute rehab [facility]. We will continue with aggressive treatment and care on B[place]y Pepe with right eye hemianopsia. Await for eye doctor juli. Dante March DO
[2018-08-03] MEDS: Amoxicillin-Clav 500-125 mg Tab PO SCH ×2 (14:57→17:21)
[2018-08-03] MEDS: LUMIGAN 0.01% OU SCH (22:11)
[2018-08-04] MEDS: Levothyroxine 25 MCG TAB PO SCH (05:15)
[2018-08-04] MEDS ORDERED: Phenylephrine 10% Opht (5 ml) OU STA (06:15)
[2018-08-04] MEDS ORDERED: Tropicamide 1% Opht SOLUTION OU STA (06:21)
[2018-08-04] MEDS: Insulin Reg-MEDIUM-Coverage SC SCH ×4 (07:43→22:09)
[2018-08-04 08:20] LABS: HEMOGLOBIN 8.9 g/dL (12.0-16.0); MEAN CELL VOLUME 87.7 fl (80.0-105.0); MEAN CORPUSCULAR HEMOGLOBIN 27.4 pg (25.0-35.0); MEAN CORPUSCULAR HGB CONC 31.2 g/dl (31.0-37.0); MEAN PLATELET VOLUME 9.8 fl (7.0-11.0); RBC 3.25 {null, 10^6/uL} (3.5-6.1); RED CELL DISTRIBUTION WIDTH 15.6 % (11.5-14.5); WHITE BLOOD COUNT 7.2 {null, 10^3/uL} (4.5-11.0)
[2018-08-04 08:41] LABS: ALB/GLOB RATIO 1.1 (1.1-1.8); ALBUMIN 3.6 g/dL (3.0-4.8); CALCIUM 9.4 mg/dL (8.4-10.5)
[2018-08-04] MEDS: Potassium Chloride 20 mEq ER Tab PO SCH (08:42)
[2018-08-04] MEDS: ZENPEP 15000 UNIT PO SCH ×3 (08:43→18:00)
[2018-08-04] MEDS: Mupirocin 2% Ointment 15 GM TUBE TOP SCH (09:44)
[2018-08-04] MEDS: Amoxicillin-Clav 500-125 mg Tab PO SCH ×2 (09:44→17:58)
[2018-08-04] MEDS: Omega-3-Acid Ethyl Esters 1 GM Cap PO SCH ×2 (09:46→17:59)
[2018-08-04] MEDS: Magnesium Oxide 400 mg Tab UD PO SCH ×3 (09:47→18:00)
--- NOTE | 2018-08-04 10:00 | CP.PCM.PCO ---
Physician Communication Note - Physician Communication Note Physician Communication Note: rigth visual field cut sec to acute lft occpital infarct.c/w plavix/eliqus
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
[2018-08-04] MEDS: Sodium Chloride 0.9% 1,000 ML IV SCH (10:10)
[2018-08-04] MEDS ORDERED: Magnesium Sulfate 2 gm/50 ml 2 GM/50 ML BAG IVPB ONE (13:39)
--- NOTE | 2018-08-04 13:42 | CP.PCM.PCO ---
Physician Communication Note - Physician Communication Note Physician Communication Note: replace magnesium, patient for BHAVIN
--- NOTE | 2018-08-04 16:31 | CON ---
DATE: 08/04/2018 HISTORY OF PRESENT ILLNESS: Ms. Pepe is an 83-year-old white female admitted to the [facility] after sustaining a CVA and decreased vision in her right eye. PHYSICAL EXAMINATION: EYES: Her visual acuity is counting is 4 feet in the right eye and 20/30 in the left eye. Exam shows a intraocular lens implant in the right eye and left eye shows a mild cataract. On dilated fundus exam after dilating the patient with neosynephrine and the fundus exam was completely normal and extraocular movement was normal. ASSESSMENT AND PLAN: Ms. Pepe has decreased vision secondary to cerebrovascular accident. I asked her to go to see me after discharge or to see her other [employer] to access the extent of the damage from the cerebrovascular accident. Mat Mayer MD
[2018-08-04] MEDS: LUMIGAN 0.01% OU SCH (22:15)
--- NOTE | 2018-08-05 02:13 | DS ---
HISTORY OF PRESENT ILLNESS: She came in with a right hemianopsia. She is comfortable. I am hoping to get her to [facility] for physical therapy. She is on Amaryl, Antivert, Augmentin, Bactroban, Ecotrin, Eliquis, folic acid, Glucophage, insulin, potassium, Lasix, Lovaza, Neurontin, Plavix, IV fluids, and Synthroid. PHYSICAL EXAMINATION: VITAL SIGNS: She has a 97.8 temperature, 66 pulse, 110/65 blood pressure, 20 respiratory rate, and 98% O2 sat on room air. HEENT: Head is atraumatic and normocephalic. She has no right-sided peripheral vision. Throat is moist. NECK: Supple. HEART: Regular rate. LUNGS: Decreased breath sounds. ABDOMEN: Soft and obese. EXTREMITIES: There is a toe ulcer, it is improving. She is feeling better. LABORATORY DATA: She has a 7.2 white count, 8.9 hemoglobin, 28.5 hematocrit with a 167 platelets. Sodium 140, potassium 4, BUN 28, creatinine 1.2, GFR is 43, sugar is 116, calcium is 9.4, total bilirubin is 0.3. AST is 21, ALT of 12, alkaline phosphatase is 63, total protein is 7. She had an MRI of the brain on the 08/02/2018; there was acute infarct left occipital lobe, chronic appearing infarcts right posterior temporal parietal infarct. ASSESSMENT AND PLAN: She has balance issues. I am going to get her to stay at [facility] for physical therapy before she goes home. She is here with a new cerebrovascular accident, left occipital pole, right-sided lateral, vision loss and needs physical therapy. She wants to go to [facility], I am hoping to get her to [facility]. Dante March DO
[2018-08-05] MEDS: Levothyroxine 25 MCG TAB PO SCH (05:56)
[2018-08-05 06:10] VITALS: O2SAT 96
[2018-08-05] MEDS: Insulin Reg-MEDIUM-Coverage SC SCH ×4 (07:36→18:03)
[2018-08-05] MEDS: ZENPEP 15000 UNIT PO SCH ×3 (08:46→18:04)
[2018-08-05] MEDS: Potassium Chloride 20 mEq ER Tab PO SCH (08:46)
[2018-08-05] MEDS ORDERED: Mupirocin 2% Ointment 15 GM TUBE TOP SCH (10:00)
[2018-08-05] MEDS: Sodium Chloride 0.9% 1,000 ML IV SCH (10:38)
[2018-08-05] MEDS: Magnesium Oxide 400 mg Tab UD PO SCH ×3 (10:45→18:04)
[2018-08-05] MEDS: Amoxicillin-Clav 500-125 mg Tab PO SCH ×2 (10:47→18:03)
[2018-08-05] MEDS: Omega-3-Acid Ethyl Esters 1 GM Cap PO SCH ×2 (10:47→18:03)
--- NOTE | 2018-08-05 11:25 | CP.PCM.PCO ---
Physician Communication Note - Physician Communication Note Physician Communication Note: MRI of foot pending, BHAVIN recommended
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
--- NOTE | 2018-08-05 15:59 | MRI ---
Date of service: 08/05/2018 PROCEDURE: MRI of the left foot HISTORY: left second digit chronic ulceration COMPARISON: TECHNIQUE: MRI of the left foot was performed in multiple planes using multiple pulse sequences. FINDINGS: There is no marrow edema seen to suggest osteomyelitis. Specifically there are no findings seen in the 2nd digit. There is no significant cellulitis. There is no evidence of soft tissue abscess. IMPRESSION: No evidence of osteomyelitis
[2018-08-05 18:05] VITALS: BP 120/73
[2018-08-05 19:20] VITALS: PULSE 83; RESP 19; TEMP 98.1
--- NOTE | 2018-08-06 03:48 | DS ---
HISTORY OF PRESENT ILLNESS: her yesterday, I am hoping to get her to [facility] for subacute rehab. We will see how the insurance approves this. She is comfortable in bed, motivated to go to [facility], wants physical therapy. She is in fairly good spirits this morning. She is eating okay. PHYSICAL EXAMINATION: VITAL SIGNS: She has a 97.8 temperature, 88 pulse, 106/57 blood pressure, 18 respiratory rate, and 96% O2 sat on room air. HEENT: Head; atraumatic and normocephalic. HEART: Regular rate. LUNGS: Decreased breath sounds, but clear. ABDOMEN: Soft, obese, and nontender. EXTREMITIES: Trace edema. Also she has a left second toe ulcer on top which looks like it is noninfected with a little scab on top of it. ASSESSMENT AND PLAN: She does have a right hemianopsia from cerebrovascular accident in the left occipital area and she can use some physical therapy for her balance and her vision issues. Hopefully, she is going to go there today. Dante March DO MTDD
== END 2018-08-05 20:46 | DRG 66 ==
LOC: ED 20:41 → ERH 23:15 → 2RSO 08-02 01:33
PROVIDERS: ADMIT Family Medicine; ATTEND Family Medicine
DX: I63.49 Cerebral infarction due to embolism of other cerebral artery (principal); H53.40 Unspecified visual field defects; H53.8 Other visual disturbances; G93.89 Other specified disorders of brain; E11.621 Type 2 diabetes mellitus with foot ulcer; L97.529 Non-pressure chronic ulcer of other part of left foot with unspecified severity; E11.42 Type 2 diabetes mellitus with diabetic polyneuropathy; R29.701 NIHSS score 1; I11.0 Hypertensive heart disease with heart failure; I50.9 Heart failure, unspecified; I48.91 Unspecified atrial fibrillation; E03.9 Hypothyroidism, unspecified; H40.9 Unspecified glaucoma; K58.9 Irritable bowel syndrome, unspecified; E66.01 Morbid (severe) obesity due to excess calories; Z68.34 Body mass index [BMI] 34.0-34.9, adult; Z79.02 Long term (current) use of antithrombotics/antiplatelets; Z79.84 Long term (current) use of oral hypoglycemic drugs